=== PATIENT | male | born 1970 | race Caucasian/White ===

== ENCOUNTER 2016-03-04 14:17 | Emergency (ER) | payer OTHER ==
[~2016-03-04] VITALS: Ht 180.3 cm; Wt 86.0 kg
[~2016-03-04 14:17] MED LIST: ADVIN25/60 INH; ATOR-22 PO
[2016-03-04 14:33] VITALS: TEMP 37; Ht 180.3 cm; Wt 86.0 kg
[2016-03-04] MEDS ORDERED: LEVO1TAB33 PO (15:11)
[2016-03-04] MEDS ORDERED: PRED20TA PO (15:11)
[2016-03-04] MEDS ORDERED: CYCLOBENZAPRINE HCL 10 MG TAB PO STA (15:29)
[2016-03-04] MEDS ORDERED: ONDANSETRON 4MG OD TAB PO STA (15:29)
[2016-03-04] MEDS ORDERED: KETOROLAC TROMETHAMINE 60 MG/2 ML VIAL IM STA (15:29)
[2016-03-04] MEDS ORDERED: HYDROmorphone INJ 2 MG/ML SYR/VIAL IM STA (15:29)
--- NOTE | 2016-03-04 16:29 | DIAGNOSTIC IMAGING REPORT ---
LUMBAR SPINE 5 VIEWS CLINICAL HISTORY: Low back pain. FINDINGS: 5 views of the lumbar spine are compared to study dated 02/23/2016. The skeletal structures are well mineralized. There is no radiographic evidence of fracture or malalignment. Vertebral body height and alignment are maintained. The transverse and spinous processes are intact. There is no evidence of spondylolysis. There is minimal degenerative disc space narrowing at L5-S1. The remaining intervertebral disc spaces are well-maintained. Small anterior osteophytes are present at L4 and L5. The visualized bony pelvis appears intact. There is a nonobstructed abdominal bowel gas pattern. There is mild to moderate colonic fecal retention. There is age advanced atherosclerotic calcification of the abdominal aorta. IMPRESSION: There is no acute bony abnormality seen involving the lumbosacral spine and there has been no significant change from 02/23/2016. Electronically signed by: Cordell Drummond M.D. 03/04/2016 4:27 PM Dictated Date/Time: 03/04/2016 4:26 PM
[2016-03-04] MEDS ORDERED: CYCL10TA6 PO (17:25)
[2016-03-04] MEDS ORDERED: OXYC1TAB3 PO (17:25)
--- NOTE | 2016-03-04 17:29 | EMERGENCY ROOM VISIT NOTE ---
ED Visit Note First contact with patient: 14:36 CHIEF COMPLAINT: Low back pain times one day HISTORY OF PRESENT ILLNESS: Patient is a 46-year-old white male who presents to the emergency department for evaluation of severe low back pain today. He notes that he has had back pain intermittently for the last 6-8 months, but it worsened unexpectedly, and without clear source today. He states that he saw a chiropractor about 4 months ago. He had x-rays and was told he had a "bulging disc." He was worse after seeing a chiropractor and therefore did not go back. He has noted constant, aching midline low back pain since, it will occasionally become worse and radiates up his spine slightly. Today he states the pain is worse than it has been 6 weeks. He has tried ice. He did not use any medications today. He states that they are out of Tylenol and ibuprofen. The pain does not radiate into the buttocks, hips or the legs. It does not wrap around to the abdomen or the groin. He denies any urinary symptoms. No bowel or bladder incontinence. He denies a prior history of back injuries. He rates his pain a 10/10. REVIEW OF SYSTEMS: Review of systems as per HPI. All other systems reviewed were negative. 10 systems reviewed. PMH: Electronic medical records are reviewed and summarized as above/below. See Problem List. SOCIAL HISTORY: Patient lives at home with his . Smoker. PHYSICAL EXAM: Vital Signs: Reviewed Nurse's notes. MENTAL STATUS: Patient is an uncomfortable-appearing 46-year-old white male who is awake and alert and seated on the edge of the gurney in moderate distress due to back pain. NECK: Supple, non-tender. HEART: Regular rate and rhythm. LUNGS: Clear to auscultation. BACK: Tenderness in the paraspinous muscles in the lumbar area. No tenderness over the spinous processes of the lumbar vertebrae. No pain over the SI joint, sciatic notch or the greater trochanters bilaterally. He has discomfort with flexion, rotation and lateral bending. LEGS: Normal strength including dorsi-flexion and plantar flexion of the great toes and ankles, flexion and extension of the knees and flexion at the hips. Negative bilateral straight leg raising, normal and symmetrical knee and ankle reflexes. Sensation to light touch is intact of the lower extremity bilaterally. EMERGENCY DEPARTMENT COURSE: The patient was seen and examined as above. His old records are reviewed. He was medicated with IM Dilaudid, Toradol and oral Zofran and Flexeril. Lumbar spine x-rays were obtained. Mild degenerative changes were noted. He does not have any radicular symptoms at this time. Incidentally, he is finishing a course of steroids that his PCP had prescribed for an upper respiratory illness. Given the findings on x-ray, discussed with the patient that he may be in need of an MRI, but would need to follow-up with his PCP for further care as he may require a course of physical therapy prior to an MRI being authorized. He was given oxycodone and Flexeril for pain. It was not felt that any additional steroids were indicated. The patient did report that his pain and improved with the IM medications and rated it a 4/10 at discharge. His was driving. Patient was reviewed in the [facility] Prescription Drug Monitoring Program, and there were no red flags noted. MEDICAL DECISION MAKING: I do not suspect acute compression syndrome, cauda equina, diskitis, epidural abscess, hematoma or neurovascular compromise. LUMBAR SPINE 5 VIEWS CLINICAL HISTORY: Low back pain. FINDINGS: 5 views of the lumbar spine are compared to study dated 02/23/2016. The skeletal structures are well mineralized. There is no radiographic evidence of fracture or malalignment. Vertebral body height and alignment are maintained. The transverse and spinous processes are intact. There is no evidence of spondylolysis. There is minimal degenerative disc space narrowing at L5-S1. The remaining intervertebral disc spaces are well-maintained. Small anterior osteophytes are present at L4 and L5. The visualized bony pelvis appears intact. There is a nonobstructed abdominal bowel gas pattern. There is mild to moderate colonic fecal retention. There is age advanced atherosclerotic calcification of the abdominal aorta. IMPRESSION: There is no acute bony abnormality seen involving the lumbosacral spine and there has been no significant change from 02/23/2016. Problem List Medical Problems: (1) Abscess of right hip Status: Resolved (2) AC separation Status: Resolved (3) AC separation Status: Resolved (4) Atrial fibrillation Status: Resolved (5) Cellulitis of left foot Status: Resolved (6) Chest pain Status: Resolved (7) Chest pain Status: Resolved (8) Contusion of ribs Status: Resolved (9) COPD (chronic obstructive pulmonary disease) Status: Chronic (10) Flank pain Status: Resolved (11) Hyperlipidemia Status: Chronic (12) Hypertension Status: Chronic (13) Laceration of left foot Status: Resolved (14) Low back pain Status: Resolved (15) Myocardial infarction Status: Resolved (16) Paroxysmal SVT (supraventricular tachycardia) Status: Resolved (17) Pneumonia Status: Resolved (18) Prepatellar bursitis, right knee Status: Resolved (19) Tick bite Status: Resolved Surgical Problems: (1) S/P ablation operation for arrhythmia Status: Resolved Current/Historical Medications Scheduled Levofloxacin (Levaquin), 500 MG PO DAILY Prednisone (Prednisone), 20 MG PO BID Scheduled PRN Cyclobenzaprine Hcl (Flexeril), 10 MG PO TID PRN for Muscle Spasms Oxycodone Immediate Rel Tab (Roxicodone Ir), 1-2 TAB PO Q4H PRN for Severe Pain Allergies Coded Allergies: No Known Allergies (Unverified , 08/28/15) Vital Signs Date Time Temp Pulse Resp B/P Pulse Ox O2 Delivery O2 Flow Rate FiO2 03/04/16 17:35 96 18 154/87 96 Room Air 03/04/16 16:30 104 18 171/96 95 Room Air 03/04/16 14:33 37.0 111 18 161/103 96 Room Air Medications Administered Medications (Trade) Dose Ordered Sig/Luis Route Start Time Stop Time Status Last Admin Dose Admin Hydromorphone HCl (Dilaudid Inj) 2 mg NOW STAT IM 03/04/16 15:29 03/04/16 15:31 DC 03/04/16 15:48 2 MG Ketorolac Tromethamine (Toradol Inj) 60 mg NOW STAT IM 03/04/16 15:29 03/04/16 15:31 DC 03/04/16 15:47 60 MG Ondansetron HCl (Zofran Odt) 4 mg NOW STAT PO 03/04/16 15:29 03/04/16 15:31 DC 03/04/16 15:46 4 MG Cyclobenzaprine HCl (Flexeril Tab) 10 mg NOW STAT PO 03/04/16 15:29 03/04/16 15:31 DC 03/04/16 15:46 10 MG Oxycodone HCl (Roxicodone Immediate Rel 5MG Home Pack) 1 homepack UD ONCE PO 1/23/17 17:45 03/04/16 17:46 DC 03/04/16 17:39 1 HOMEPACK Departure Information Impression Primary Impression: Low back pain Prescriptions Oxycodone Immediate Rel Tab (ROXICODONE IR) 5 Mg Tab 1-2 TAB PO Q4H Y for Severe Pain, #25 TAB For Initial Treatment Prov: Sharon Price PA 03/04/16 Cyclobenzaprine Hcl (FLEXERIL) 10 Mg Tab 10 MG PO TID Y for Muscle Spasms, #30 TAB Prov: Sharon Price PA 03/04/16 Referrals Hernandez Ashraf M.D. (PCP) Patient Instructions My [facility] Additional Instructions DO NOT drive, drink alcohol, operate machinery, or perform dangerous activities today. You were given medications in the ER that can affect your ability to safely function or operate a vehicle. Cyclobenzaprine (Flexeril) 10 mg: Take 1 pills 3 times daily as needed for muscle spasms.. Avoid alcohol, operating machinery or dangerous equipment, working on ladders or roofs, DRIVING, or situations where being under the influence may be dangerous. Oxycodone (OxyIR) 5mg: Take 1-2 pills every four hours for breakthrough pain. Avoid alcohol, operating machinery or dangerous equipment, working on ladders or roofs, DRIVING, or situations where being under the influence may be dangerous. It is recommended to use an [id number]-ojt-[id number] stool softener such as Colace, 100mg twice daily while taking this medication to avoid constipation. Ibuprofen(Motrin, Advil) may be used for fever or pain. Use 600mg every six hours as needed. Take with food. Avoid using more than 2400mg in a 24 hour period. Do not use 2400mg per day for more than three consecutive days without physician direction. Prolonged inappropriate use can lead to stomach upset or ulcers. This medication can be taken if you need to drive, work, or perform activities which may be dangerous when taking narcotic pain medication. (AND/OR) Acetaminophen(Tylenol) may be used for fever or pain. Use 1000mg every six hours as needed. Avoid using more than 3000mg in a 24 hour period. This medication can be taken if you need to drive, work, or perform activities which may be dangerous when taking narcotic pain medication. Rest and avoid heavy lifting until your symptoms resolve and then gradually return to full activity. A good rule of thumb is if it hurts your back to perform a certain activity, then it should be avoided until you are healthy again. A heating pad, warm compresses, or a hot shower may help with tight muscles and can be done several times a day as needed. Continue current medications. Return to the ER immediately for any numbness, tingling, severe pain, loss of control of your bowels or bladder, inability to walk, or as needed. Follow up with your primary care physician within 3-5 days for a recheck of your current condition. Problem Qualifiers Primary Impression: Low back pain Chronicity: chronic Back pain laterality: midline Sciatica presence: without sciatica Qualified Codes: M54.5 - Low back pain; G89.29 - Other chronic pain
[2016-03-04 17:35] VITALS: BP 154/87; PULSE 96; O2SAT 96
[2016-03-04] MEDS ORDERED: OXYCODONE IR HOME PACK PO ONE (17:45)
[2016-05-29] MEDS ORDERED: NAPR250T2 PO (14:10)
== END 2016-03-04 17:43 | disposition home or self-care (01) ==
LOC: C.EDB 14:18 → C.EDD 17:43
DX: M54.5 Low back pain (principal); J44.9 Chronic obstructive pulmonary disease, unspecified; E78.5 Hyperlipidemia, unspecified; I10 Essential (primary) hypertension; I25.2 Old myocardial infarction

== ENCOUNTER 2016-05-29 13:33 | Emergency (ER) | payer OTHER ==
[~2016-05-29] VITALS: Ht 180.3 cm; Wt 83.1 kg
[~2016-05-29 13:33] MED LIST changes: -ADVIN25/60 INH; -ATOR-22 PO; +LEVO1TAB33 PO; +OXYC1TAB3 PO; +PRED20TA PO
[2016-05-29 13:44] VITALS: TEMP 36.7; Ht 180.3 cm; Wt 83.1 kg
[2016-05-29] MEDS ORDERED: NAPR1TAB48 PO (14:10)
[2016-05-29 14:41] VITALS: BP 151/95; PULSE 101; O2SAT 95
[2016-05-29] MEDS ORDERED: CEFTRIAXONE SOD 350MG/ML 1 GM VIAL IM ONE (14:45)
[2016-05-29] MEDS ORDERED: SULFAMETHOXAZOLE/TRIMETHOPRIM DS 800/160MG TAB PO ONE (14:45)
[2016-05-29] MEDS ORDERED: SULF800T23 PO (14:49)
[2016-05-29] MEDS ORDERED: CEPH500C2 PO (14:49)
--- NOTE | 2016-05-29 14:49 | EMERGENCY ROOM VISIT NOTE ---
ED Visit Note First contact with patient: 14:09 CHIEF COMPLAINT: Infection of the left thigh 2 days HISTORY OF PRESENT ILLNESS: Patient is a 46-year-old white male who presents to emergency department for evaluation of redness, warmth and induration around a tick bite site on his left thigh. Patient relates that he was camping this weekend and got a tick on his left leg. He was able to remove it entirely with a tick twister Friday evening 3 days ago. He believes that he was on for less than 12 hours. There was a small area of redness around the tick bite which he did not think was unusual. Following day however he be noted that the bite site had become scabbed over. There was a small ring of erythema, which has progressively gotten worse and is now spreading up and down the leg. It is also a little bit hot to the touch and indurated centrally. The patient does report a history of MRSA from an abscess on his hip a couple of years ago. He denies any fever or chills. There has been no drainage or discharge from the area. He denies any pain. REVIEW OF SYSTEMS: Review of systems as per HPI. All other systems reviewed were negative. 10 systems reviewed. PMH: Electronic medical records are reviewed and summarized as above/below. See Problem List. His tetanus is up-to-date. SOCIAL HISTORY: Patient lives at home. . Smoker. PHYSICAL EXAM: Vital Signs: Reviewed Nurse's notes. GENERAL: Patient is a well -appearing 46-year-old white male who is awake and alert and in no acute distress. EYES: PERRL, EOMI, no discharge or injection. NEUROLOGICAL: Alert and cooperative. Sensory and motor functions grossly intact. INTEGUMENTARY: Examination of the medial aspect of the left thigh show a small scabbed over lesion with surrounding induration, erythema with increased warmth. There is no lymphangitic streaking, but there is left inguinal lymphadenopathy appreciated. Hip and knee range of motion are full. The left lower extremity is neurovascularly intact. EMERGENCY DEPARTMENT COURSE: The patient was seen and assessed as above. His old records are reviewed. He does have a history of MRSA. He sustained a small tick bite to the left thigh, which resulted in a small open wound, and subsequently appears to have developed a cellulitis. At this time there is no fluctuance or pointing to suspect abscess, but I did discuss the patient that this could develop. His rash does not appear consistent with erythema migrans. The patient was medicated with Rocephin 1 g IM and Bactrim DS 2 tablets orally. There is no drainage to culture at this time, however with his history of MRSA he will be covered for such. He was advised to return to the emergency department in 48 hours for recheck, sooner for any worsening symptoms. He expressed understanding of this and was agreeable. Problem List Medical Problems: (1) Abscess of right hip Status: Resolved (2) AC separation Status: Resolved (3) AC separation Status: Resolved (4) Atrial fibrillation Status: Resolved (5) Cellulitis of left foot Status: Resolved (6) Chest pain Status: Resolved (7) Chest pain Status: Resolved (8) Contusion of ribs Status: Resolved (9) COPD (chronic obstructive pulmonary disease) Status: Chronic (10) Flank pain Status: Resolved (11) Hyperlipidemia Status: Chronic (12) Hypertension Status: Chronic (13) Laceration of left foot Status: Resolved (14) Low back pain Status: Resolved (15) Myocardial infarction Status: Resolved (16) Paroxysmal SVT (supraventricular tachycardia) Status: Resolved (17) Pneumonia Status: Resolved (18) Prepatellar bursitis, right knee Status: Resolved (19) Tick bite Status: Resolved Surgical Problems: (1) S/P ablation operation for arrhythmia Status: Resolved Current/Historical Medications Scheduled Cephalexin Monohydrate (Keflex), 500 MG PO QID Sulfa/Trimethoprim (Bactrim Ds 800MG/160MG), 1 TAB PO BID Miscellaneous Medications Naproxen (Naprosyn), 250 MG PO Allergies Coded Allergies: No Known Allergies (Unverified , 08/28/15) Vital Signs Date Time Temp Pulse Resp B/P Pulse Ox O2 Delivery O2 Flow Rate FiO2 05/29/16 14:41 101 16 151/95 95 Room Air 05/29/16 13:44 36.7 104 18 143/79 98 Room Air Medications Administered Medications (Trade) Dose Ordered Sig/Luis Route Start Time Stop Time Status Last Admin Dose Admin Ceftriaxone Sodium (Rocephin Im) 1,000 mg NOW ONCE IM 05/29/16 14:45 05/29/16 14:46 DC 05/29/16 14:52 1,000 MG Trimethoprim/ Sulfamethoxazole (Septra Ds 800/ 160MG Tab) 2 tab NOW ONCE PO 05/29/16 14:45 05/29/16 14:46 DC 05/29/16 14:52 2 TAB Departure Information Impression Primary Impression: Left leg cellulitis Prescriptions Sulfa/Trimethoprim (Bactrim Ds 800MG/160MG) Tab 1 TAB PO BID, #20 TAB Prov: Sharon Price PA 05/29/16 Cephalexin Monohydrate (KEFLEX) 500 Mg Cap 500 MG PO QID, #40 CAP Prov: Sharon Price PA 05/29/16 Referrals Brock Sparks (PCP) Patient Instructions My [facility] Additional Instructions Cephalexin(Keflex) 500mg: Take one pill four times daily for 10 days for your skin infection. All antibiotics can cause diarrhea. If this occurs and you feel worse or it does not resolve in 1-2 days follow up with your doctor or return to the Emergency Department as this could be signs of serious underlying problems. Any medication can cause an allergic reaction, stop the pills immediately and return to the ER for rash, hives, breathing difficulties, or swelling. Trimethoprim-Sulfamethoxazole(Bactrim DS): Take one pill twice daily for 10 days for your skin infection. All antibiotics can cause diarrhea. If this occurs and you feel worse or it does not resolve in 1-2 days follow up with your doctor or return to the Emergency Department as this could be signs of serious underlying problems. Any medication can cause an allergic reaction, stop the pills immediately and return to the ER for rash, hives, breathing difficulties, or swelling. Ibuprofen(Motrin, Advil) may be used for fever or pain. Use 600mg every six hours as needed. Take with food. Avoid using more than 2400mg in a 24 hour period. Do not use 2400mg per day for more than three consecutive days without physician direction. Prolonged inappropriate use can lead to stomach upset or ulcers. This is available over the counter and typically comes in 200mg tablets. (AND/OR) Acetaminophen(Tylenol) may be used for fever or pain. Use 1000mg every eight hours as needed. Avoid using more than 3000mg in a 24 hour period. This is available over the counter. Read all the package inserts or medication information paperwork provided. If you have any questions or concerns call your primary provider, pharmacist or the ER for assistance. Warm compresses to the affected area 4 times daily for 15-20 minutes. Rest and drink plenty of fluids. Continue current medications. Return to the ER in 48 hours for recheck, return immediately for severe pain, persistent fevers, spreading redness, or any worsening of your condition. Follow up with your primary physician within 2-3 days for a recheck of the current condition.
== END 2016-05-29 15:02 | disposition home or self-care (01) ==
LOC: C.EDB 13:34 → C.EDD 15:02
DX: L03.116 Cellulitis of left lower limb (principal); F17.210 Nicotine dependence, cigarettes, uncomplicated; Z86.14 Personal history of Methicillin resistant Staphylococcus aureus infection; J44.9 Chronic obstructive pulmonary disease, unspecified; E78.5 Hyperlipidemia, unspecified; I10 Essential (primary) hypertension; I25.2 Old myocardial infarction; Z87.01 Personal history of pneumonia (recurrent)

== ENCOUNTER → 2016-10-10 | Outpatient (CLI) | payer OTHER ==
[~2016-10-10] MED LIST changes: +CEPH500C2 PO; -LEVO1TAB33 PO; +NAPR250T2 PO; -OXYC1TAB3 PO; -PRED20TA PO; +SULF800T23 PO
[2016-10-11 17:46] LABS: URINE APPEARANCE CLEAR (CLEAR); URINE BILIRUBIN NEG (NEG); URINE COLOR YELLOW; URINE EPITHELIAL CELL AUTO 0-5 /lpf (0-5); URINE NITRITE NEG (NEG); URINE PH 7.5 (4.5-7.5); URINE SPECIFIC GRAVITY 1.008 (1.000-1.030); UROBILINOGEN NEG (NEG)
[2016-10-11 17:54] LABS: MANUAL MICROSCOPIC REQUIRED? NO; REVIEW REQ? NO
== END | disposition home or self-care (01) ==
LOC: C.LABPVFM 09:33
PROVIDERS: ATTEND Physician Assistant
DX: J44.9 Chronic obstructive pulmonary disease, unspecified (principal); I10 Essential (primary) hypertension; E78.5 Hyperlipidemia, unspecified; K03.5 Ankylosis of teeth; M54.2 Cervicalgia; R53.83 Other fatigue; M62.838 Other muscle spasm

== ENCOUNTER → 2016-10-10 | Outpatient (CLI) | payer OTHER ==
--- NOTE | 2016-10-10 16:25 | DIAGNOSTIC IMAGING REPORT ---
RIGHT SHOULDER MIN 2 VIEWS ROUTINE HISTORY: 46 years-old Male BACK PAIN Right COMPARISON: Portable chest radiograph 01/17/2015 TECHNIQUE: 3 views of the right shoulder FINDINGS: Mild glenohumeral and acromioclavicular osteoarthritis is noted. There is no acute fracture or dislocation. Negative for opaque foreign body. Soft tissues are unremarkable. Imaged right lung cuellar are clear. IMPRESSION: Mild degenerative changes about the right shoulder without acute bony abnormality. The above report was generated using voice recognition software. It may contain grammatical, syntax or spelling errors. Electronically signed by: Stephen Parsons M.D. 10/10/2016 4:23 PM Dictated Date/Time: 10/10/2016 4:23 PM
--- NOTE | 2016-10-10 16:26 | DIAGNOSTIC IMAGING REPORT ---
LEFT SHOULDER MIN 2 VIEWS ROUTINE HISTORY: 46 years-old Male BACK PAIN COMPARISON: Chest radiographs 01/17/2015 TECHNIQUE: 3 views of the left shoulder FINDINGS: There is no acute fracture or dislocation identified. Mild subcortical sclerosis and cystic change involves the greater tuberosity. Mild glenohumeral and acromioclavicular osteoarthritis is noted. Imaged lung cuellar are clear. Negative for radiopaque foreign body. IMPRESSION: 1. No acute bony abnormality. 2. Mild degenerative changes of the left shoulder. The above report was generated using voice recognition software. It may contain grammatical, syntax or spelling errors. Electronically signed by: Stephen Parsons M.D. 10/10/2016 4:25 PM Dictated Date/Time: 10/10/2016 4:24 PM
--- NOTE | 2016-10-10 16:32 | DIAGNOSTIC IMAGING REPORT ---
C-SPINE ROUTINE 4 OR 5 VIEWS CLINICAL HISTORY: 46 years-old Male presenting with NECK PAIN, shoulder pain, left worse than right, no recent injury. TECHNIQUE: Lateral, bilateral oblique, frontal, and open-mouth odontoid views of the cervical spine were obtained. COMPARISON: None. FINDINGS: Normal cervical lordosis. Vertebral body heights and intervertebral disc spaces preserved. Mild multilevel degenerative changes. Radiographs are slightly limited due to lack of complete visualization of the C7 vertebral body. Within this limitation, no radiographic evidence of acute fracture or subluxation. No osseous neural foraminal narrowing is apparent. Lateral masses of C1 articulate normally with C2. Normal predental interval. No prevertebral soft tissue swelling. IMPRESSION: Mild multilevel degenerative changes without radiographic evidence of osseous neural foraminal narrowing. Electronically signed by: Elia Coronado M.D. 10/10/2016 4:31 PM Dictated Date/Time: 10/10/2016 4:29 PM
[2016-10-10 17:50] LABS: HEMATOCRIT 48.9 % (42-52); MEAN CELL VOLUME 87.6 fL (80-100); MEAN CORPUSCULAR HEMOGLOBIN 29.2 pg (25-34); MEAN CORPUSCULAR HGB CONC 33.3 g/dl (32-36); MEAN PLATELET VOLUME 10.4 fL (7.4-10.4); PLATELET COUNT 353 K/uL (130-400); RED BLOOD COUNT 5.58 M/uL (4.7-6.1); WHITE BLOOD COUNT 8.49 K/uL (4.8-10.8)
[2016-10-10 18:08] LABS: ALT/SGPT 25 U/L (12-78); AST/SGOT 12 U/L (15-37); BLOOD UREA NITROGEN 8 mg/dl (7-18); BUN/CREATININE RATIO 8.5 (10-20); CALCIUM 9.1 mg/dl (8.5-10.1); CARBON DIOXIDE 28 mmol/L (21-32); CHLORIDE 102 mmol/L (98-107); CREATININE 0.99 mg/dl (0.60-1.40); GLUCOSE 108 mg/dl (70-99); POTASSIUM 4.1 mmol/L (3.5-5.1); SODIUM 136 mmol/L (136-145)
[2016-10-10 18:18] LABS: LYME DISEASE AB IGM NEG (NEG)
[2016-10-10 18:21] LABS: LYME DISEASE AB IGG NEG (NEG)
[2016-10-10 18:23] LABS: ALB/GLOB RATIO 0.8 (0.9-2); ALKALINE PHOSPHATASE 83 U/L (45-117); CHOLESTEROL 250 mg/dl (0-200); CHOLESTEROL/HDL RATIO 5.4; HDL CHOLESTEROL 46 mg/dl; LDL CHOLESTEROL CALCULATED 172 mg/dl; THYROID STIMULATING HORMONE 0.702 uIu/ml (0.300-4.500); TRIGLYCERIDES 160 mg/dl (0-150); VERY LOW DENSITY LIPOPROT CALC 32 mg/dl
== END | disposition home or self-care (01) ==
LOC: C.RADPV 15:25
PROVIDERS: ATTEND Physician Assistant
DX: M54.2 Cervicalgia (principal); R53.83 Other fatigue; J44.9 Chronic obstructive pulmonary disease, unspecified; M12.839 Other specific arthropathies, not elsewhere classified, unspecified wrist; I10 Essential (primary) hypertension; E78.5 Hyperlipidemia, unspecified; K63.5 Polyp of colon; M25.511 Pain in right shoulder; M25.512 Pain in left shoulder

== ENCOUNTER → 2017-02-26 | Outpatient (CLI) | payer OTHER ==
[~2017-02-26] MED LIST changes: -CEPH500C2 PO; +NAPR1TAB48 PO; -NAPR250T2 PO; -SULF800T23 PO
== END | disposition home or self-care (01) ==
LOC: C.PATHSPEC 17:00
PROVIDERS: ATTEND Urology
DX: R31.0 Gross hematuria (principal); R31.29 Other microscopic hematuria; R97.20 Elevated prostate specific antigen [PSA]

== ENCOUNTER → 2017-03-05 | Outpatient (CLI) | payer OTHER ==
[2017-03-05 18:03] LABS: ALBUMIN 3.5 gm/dl (3.4-5.0); ALT/SGPT 20 U/L (12-78); BLOOD UREA NITROGEN 8 mg/dl (7-18); CALCIUM 9.5 mg/dl (8.5-10.1); CARBON DIOXIDE 26 mmol/L (21-32); CREATININE 0.88 mg/dl (0.60-1.40); GLUCOSE 109 mg/dl (70-99); POTASSIUM 4.3 mmol/L (3.5-5.1); SODIUM 136 mmol/L (136-145)
[2017-03-05 18:08] LABS: ALKALINE PHOSPHATASE 83 U/L (45-117); AST/SGOT 12 U/L (15-37); TOTAL PROTEIN 8.3 gm/dl (6.4-8.2)
== END | disposition home or self-care (01) ==
LOC: C.LABPVFM 11:31
PROVIDERS: ATTEND Urology
DX: R31.0 Gross hematuria (principal); R31.29 Other microscopic hematuria; R97.20 Elevated prostate specific antigen [PSA]

== ENCOUNTER → 2017-03-11 | Outpatient (CLI) | payer OTHER ==
[~2017-03-11] MED LIST changes: +OPTIRAY 320 IV PRN
--- NOTE | 2017-03-11 12:36 | DIAGNOSTIC IMAGING REPORT ---
ABD/PELVIS COMBO CLINICAL HISTORY: 47 years-old Male presenting with R31.0 Gross [id number] Hematuria, [id number] Elevate. TECHNIQUE: Multidetector CT of the abdomen and pelvis was performed before and after the administration of intravenous contrast. IV contrast: 94 mL of Optiray 320. A dose lowering technique was used consistent with the principles of ALARA (as low as reasonably achievable). COMPARISON: 01/16/2015. CT DOSE (mGy.cm): The estimated cumulative dose is 1457.95 mGycm. FINDINGS: Explosives Worker topogram: Unremarkable. Lung bases: The Normal heart size. No pericardial or pleural effusion. Liver: Normal morphology. No liver lesion. Patent hepatic vasculature. Biliary: No intrahepatic or extrahepatic biliary ductal dilatation. Normal gallbladder. Pancreas: Normal. Spleen: Normal. Adrenal glands: Normal. Kidneys and ureters: 4 mm hypodensity in the left kidney too small to characterize but likely simple cyst. No hydronephrosis. No renal or ureteral calculi. Subtle mild urothelial thickening of the ureters suggested. No filling defects in the urinary collecting systems bilaterally. Bladder: Normal. Pelvic organs: Prostate enlargement likely secondary to benign prostatic hyperplasia. Bowel: Limited diverticulosis of the proximal sigmoid colon. No pericolonic inflammatory change. The appendix is normal. No bowel obstruction. Peritoneal cavity: No free fluid or intraperitoneal gas. Lymph nodes: No enlarged lymph nodes in the abdomen or pelvis. Vasculature: Atherosclerosis of the normal caliber abdominal aorta. IVC patent. Abdominal wall: Normal. Musculoskeletal: Normal. IMPRESSION: 1. Prostatomegaly. This is likely secondary to underlying benign prostatic hyperplasia. 2. Suggestion of mild urothelial thickening of the ureters. This can be seen in the setting of reflux among other etiologies. 3. No evidence of a solid renal mass, urothelial neoplasm, or bladder mass. 4. No nephrolithiasis. Electronically signed by: Elia Coronado M.D. 03/11/2017 12:35 PM Dictated Date/Time: 03/11/2017 12:24 PM
== END | disposition home or self-care (01) ==
LOC: C.CTS 11:45
PROVIDERS: ATTEND Urology
DX: N40.0 Benign prostatic hyperplasia without lower urinary tract symptoms (principal); R31.0 Gross hematuria; R31.29 Other microscopic hematuria; R97.20 Elevated prostate specific antigen [PSA]

== ENCOUNTER 2017-05-11 01:40 | Emergency (ER) | payer OTHER ==
[~2017-05-11] VITALS: Ht 172.7 cm; Wt 82.0 kg
[~2017-05-11 01:40] MED LIST changes: +DILT-115 PO; +FINA5TAB4 PO; +IPRA1AER2 INH; +MONT1TAB3 PO; -NAPR1TAB48 PO; -OPTIRAY 320 IV PRN
[2017-05-11 01:41] VITALS: Ht 172.7 cm; Wt 82.0 kg
[2017-05-11 01:50] VITALS: O2SAT 95
[2017-05-11] MEDS ORDERED: PRVHFAIN INH (02:55)
[2017-05-11] MEDS ORDERED: VNTHFA/IN INH (02:55)
[2017-05-11] MEDS ORDERED: OPTIRAY 320 IV PRN (03:00)
--- NOTE | 2017-05-11 03:10 | EMERGENCY ROOM VISIT NOTE ---
History Report prepared by Jeremy: Merced Mccoy Under the Supervision of: Dr. Mya Casey D.O. First contact with patient: 01:55 Chief Complaint: CHEST PAIN Stated Complaint: SHORTNESS OF BREATHE/SHOULDER/BACK PAIN Nursing Triage Summary: Pt brought in by EMS. Pt woke up at 1230 am with coughing and then developed severe pain in left shoulder. +SOB The pain now is intermittent and radiates to chest. Pt has history of cardiac ablation and COPD. Pt used inhaler at home with no relief. Pt given ASA 324 mg enroute. History of Present Illness The patient is a 47 year old male who presents to the Emergency Room with complaints of sudden chest pain starting prior to arrival. The patient states that he was sleeping and woke up with a stabbing pain in his back that radiated into his chest. He states that he started becoming short of breath and noticed it was more painful when he tried to breathe. He notes that he has had the chest pain and shortness of breath. He states that he had a cardiac ablation done, but they were unable to rule out if he had two heart attacks. The patient states that he felt fine yesterday. He reports that he had done yard work and pulled a muscle in his ribs yesterday, but was fine. He notes that he did not smoke as many cigarettes yesterday as normal. The patient complains of a rash on the inside of his thigh from a tick bite a year ago. He reports that he has had multiple Lyme tests done that have come back negative. The patient denies a history of PE/DVT, seeing dermatology, and recent long trips. The patient notes he just had a normal stress test done. Source of History: patient Onset: prior to arrival Position: chest Quality: stabbing Timing: other (sudden) Modifying Factors (Worsening): breathing Associated Symptoms: + SOB, + back pain, + rash Review of Systems See HPI for pertinent positives & negatives. A total of 10 systems reviewed and were otherwise negative. Past Medical & Surgical Medical Problems: (1) Abscess of right hip (2) AC separation (3) AC separation (4) Atrial fibrillation (5) Cellulitis of left foot (6) Chest pain (7) Chest pain (8) Contusion of ribs (9) COPD (chronic obstructive pulmonary disease) (10) COPD (chronic obstructive pulmonary disease) (11) Flank pain (12) Hyperlipidemia (13) Hypertension (14) Laceration of left foot (15) Low back pain (16) Myocardial infarction (17) Paroxysmal SVT (supraventricular tachycardia) (18) Pneumonia (19) Prepatellar bursitis, right knee (20) Tick bite Surgical Problems: (1) History of cardiac radiofrequency ablation (2) S/P ablation operation for arrhythmia Family History FHx: heart disease Social History Smoking Status: Current Every Day Smoker Alcohol Use: occasionally Marital Status: Housing Status: lives with significant other Occupation Status: employed Current/Historical Medications Scheduled Azithromycin (Zithromax), 500 MG PO DAILY Diltiazem Hcl Ext Rel (Tiazac), 240 MG PO QPM Finasteride (Proscar), 5 MG PO DAILY AT LUNCH Montelukast Sodium (Singulair), 10 MG PO HS Scheduled PRN Albuterol (Ventolin Hfa), 2 INH Q4H PRN for SOB/Wheezing Allergies Coded Allergies: No Known Allergies (Unverified , 05/02/17) Physical Exam Vital Signs Date Time Temp Pulse Resp B/P (MAP) Pulse Ox O2 Delivery O2 Flow Rate FiO2 05/11/17 05:35 89 20 132/80 94 Room Air 05/11/17 05:16 92 16 115/71 92 Room Air 05/11/17 04:34 36.7 93 20 118/69 93 Room Air 05/11/17 03:37 102 20 115/67 95 Room Air 05/11/17 02:39 108 24 119/67 95 Room Air 05/11/17 02:10 114 05/11/17 01:50 95 Room Air 05/11/17 01:42 95 Room Air 05/11/17 01:41 36.7 116 20 168/76 94 Room Air Physical Exam HEENT: Head - normocephalic and atraumatic Pupils are equal, round, and reactive to light. Extraocular eye muscles are intact, and sclera are anicteric. Nose - moist nasal mucosa without discharge. Mouth - moist buccal mucosa. Oropharynx is nonerythematous and there is no tonsillar exudate or edema noted. Neck: Supple; no JVD, nuchal rigidity, cervical lymphadenopathy. Heart: Regular rate and rhythm. There is a normal S1 and S2 with no murmurs, clicks, or gallops appreciated. Lungs: Clear to auscultation bilaterally with no wheezes, rales, or rhonchi. Abdomen: Soft, completely nontender, nondistended, with good bowel sounds. There are no palpable pulsatile masses or hepatosplenomegaly. There is no guarding, rigidity, or rebound noted. Extremities: No evidence of cyanosis, clubbing, or edema. There are easily palpable peripheral pulses. Skin: warm and dry with good turgor and no rashes. Medical Decision & Procedures ER Provider Diagnostic Interpretation: Radiology results as stated below per my review and the radiologist's interpretation: CHEST X-RAY: The results were interpreted by me. No pneumothorax. Narrow mediastinum. No pulmonary consolidation. CT CHEST With Contrast: No evidence of pulmonary embolus. No thoracic aortic dissection or aneurysm. Centrilobular emphysema. Mild bronchial thickening noted throughout both lungs which may represent bronchitis. No focla consolidation, pleural effusion, or pneumothorax. Heart and pericardium unremarkable. Upper abdomen is unremarkable. No acute osseous findings. Radiologist: Paul Mayers Study ready at 03:53 and initial results transmitted at 04:11. Laboratory Results 05/11/17 01:20 Red Blood Count 5.33, Mean Corpuscular Volume 84.6, Mean Corpuscular Hemoglobin 30.2, Mean Corpuscular Hemoglobin Concent 35.7, Mean Platelet Volume 9.9, Neutrophils (%) (Auto) 55.4, Lymphocytes (%) (Auto) 36.3, Monocytes (%) (Auto) 5.1, Eosinophils (%) (Auto) 2.2, Basophils (%) (Auto) 0.6, Neutrophils # (Auto) 5.46, Lymphocytes # (Auto) 3.58, Monocytes # (Auto) 0.50, Eosinophils # (Auto) 0.22, Basophils # (Auto) 0.06 05/11/17 01:20 Test 05/11/17 01:20 05/11/17 04:25 White Blood Count 9.86 K/uL (4.8-10.8) Red Blood Count 5.33 M/uL (4.7-6.1) Hemoglobin 16.1 g/dL (14.0-18.0) Hematocrit 45.1 % (42-52) Mean Corpuscular Volume 84.6 fL (80-100) Mean Corpuscular Hemoglobin 30.2 pg (25-34) Mean Corpuscular Hemoglobin Concent 35.7 g/dl (32-36) Platelet Count 273 K/uL (130-400) Mean Platelet Volume 9.9 fL (7.4-10.4) Neutrophils (%) (Auto) 55.4 % Lymphocytes (%) (Auto) 36.3 % Monocytes (%) (Auto) 5.1 % Eosinophils (%) (Auto) 2.2 % Basophils (%) (Auto) 0.6 % Neutrophils # (Auto) 5.46 K/uL (1.4-6.5) Lymphocytes # (Auto) 3.58 K/uL (1.2-3.4) Monocytes # (Auto) 0.50 K/uL (0.11-0.59) Eosinophils # (Auto) 0.22 K/uL (0-0.5) Basophils # (Auto) 0.06 K/uL (0-0.2) RDW Standard Deviation 41.6 fL (36.4-46.3) RDW Coefficient of Variation 13.6 % (11.5-14.5) Immature Granulocyte % (Auto) 0.4 % Immature Granulocyte # (Auto) 0.04 K/uL (0.00-0.02) Prothrombin Time 9.8 SECONDS (9.0-12.0) Prothromb Time International Ratio 0.9 (0.9-1.1) Activated Partial Thromboplast Time 25.9 SECONDS (21.0-31.0) Partial Thromboplastin Ratio 1.0 Anion Gap 15.0 mmol/L (3-11) Est Creatinine Clear Calc Drug Dose 70.5 ml/min Estimated GFR () 79.2 Estimated GFR (Non- 68.3 BUN/Creatinine Ratio 8.3 (10-20) Calcium Level 8.9 mg/dl (8.5-10.1) Total Bilirubin 0.4 mg/dl (0.2-1) Direct Bilirubin < 0.1 mg/dl (0-0.2) Aspartate Amino Transf (AST/SGOT) 17 U/L (15-37) Alanine Aminotransferase (ALT/SGPT) 25 U/L (12-78) Alkaline Phosphatase 83 U/L (45-117) Total Protein 8.0 gm/dl (6.4-8.2) Albumin 3.8 gm/dl (3.4-5.0) Lipase 385 U/L (73-393) Troponin I < 0.015 ng/ml (0-0.045) Laboratory results per my review. Medications Administered Medications (Trade) Dose Ordered Sig/Luis Route Start Time Stop Time Status Last Admin Dose Admin Azithromycin (Zithromax Tab) 500 mg NOW STAT PO 05/11/17 05:35 05/11/17 05:36 DC 05/11/17 05:41 500 MG Procedure 0535: Ordered Azithromycin 500 mg PO. ECG Per My Interpretation Indication: chest pain Rate (beats per minute): 114 Rhythm: sinus tachycardia Findings: ST depression (Lateral, Inferior), no ectopy Comparison ECG Date: REPEAT and 01/17/2015 Change: REPEAT: Normal sinus rhythm at a rate of 99. Persistent ST segment depression in the lateral leads. Seems to be improved in the inferior leads. 01/17/2015: ST Depressions are new findings. ED Course 0216: Past medical records reviewed. The patient was evaluated in room B4B. A complete history and physical exam was performed. A 12-lead EKG was obtained as described above. A portable chest x-ray was obtained and showed no evidence of a pneumothorax. The patient will go for CT scan of the chest to rule out PE. Nursing staff noted that the patient's heart rate came down and they repeated his EKG. Some of the ST segment depression seem to have resolved. 0420: I reevaluated the patient and he was sound asleep. His vitals are stable. I woke him up and he is free from his chest pain. I notified him that we are going to do a repeat troponin. 0532: Upon reevaluation, the patient is asleep and all his pain is gone. I discussed findings and results with him. He verbalized agreement of the treatment plan. The patient was discharged home. 0535: Ordered Azithromycin 500 mg PO. Medical Decision The patient is a 47 year old male who presents to the Emergency Room with complaints of sudden chest pain starting prior to arrival. Differential diagnoses include PE, aortic dissection, pneumothorax, cardiac ischemia. LABS: No leukocytosis Stable H&H Normal renal function Glucose 136 Normal LFTs Normal lipase Normal Coags Troponin less than 0.015 Repeat Troponin less than 0.015 This is a 47-year-old male patient presents to the emergency department with back pain that seemed to radiate through to his chest. EKG revealed tachycardia with some ST segment depression laterally and inferiorly. Once the rate came down less than 100, that ST segment depression seem to decrease. Chest x-ray showed no evidence of a PE. There was some evidence of bronchitis. The patient does continue to smoke. He will be treated with Zithromax. The explained that he cannot take only a Z-Dann as this has not worked for him in the past but he needs to take a 10 day course of azithromycin. The patient was pain-free upon discharge. I have asked him to follow-up with the PCP if the symptoms persist. He can return here to the ER if symptoms worsen. Medication Reconcilliation Current Medication List: was personally reviewed by me Blood Pressure Screening Patient's blood pressure: Normal blood pressure Blood pressure disposition: Did not require urgent referral Impression Primary Impression: Left sided chest pain Additional Impressions: Left-sided back pain Bronchitis Scribe Attestation The scribe's documentation has been prepared under my direction and personally reviewed by me in its entirety. I confirm that the note above accurately reflects all work, treatment, procedures, and medical decision making performed by me. Departure Information Dispostion Home / Self-Care Prescriptions Azithromycin (Zithromax) 500 Mg Tab 500 MG PO DAILY, #9 TAB Prov: Mya Casey D.O. 05/11/17 Referrals Carolynn Snyder CRNP (PCP) Forms Call Back Authorization, HOME CARE DOCUMENTATION FORM, IMPORTANT VISIT INFORMATION Patient Instructions My [facility] Additional Instructions Rest. STOP SMOKING Follow up with PCP about EKG changes. Return to the ER for any worsening symptoms Zithromax - daily for 10 days Problem Qualifiers Additional Impressions: Left-sided back pain Back pain location: thoracic back pain Chronicity: acute Qualified Codes: M54.6 - Pain in thoracic spine
[2017-05-11 03:18] LABS: BASO % 0.6 %; BASO ABS # 0.06 K/uL (0-0.2); EOS % 2.2 %; EOS ABS # 0.22 K/uL (0-0.5); HEMATOCRIT 45.1 % (42-52); HEMOGLOBIN 16.1 g/dL (14.0-18.0); IG# 0.04 K/uL (0.00-0.02); LYMPH % 36.3 %; LYMPH ABS # 3.58 K/uL (1.2-3.4); MEAN CELL VOLUME 84.6 fL (80-100); MEAN CORPUSCULAR HEMOGLOBIN 30.2 pg (25-34); MEAN CORPUSCULAR HGB CONC 35.7 g/dl (32-36); MEAN PLATELET VOLUME 9.9 fL (7.4-10.4); MONO % 5.1 %; NEUT % 55.4 %; NEUT ABS # 5.46 K/uL (1.4-6.5); PLATELET COUNT 273 K/uL (130-400); RED CELL DISTRIBUTION WIDTH CV 13.6 % (11.5-14.5); RED CELL DISTRIBUTION WIDTH SD 41.6 fL (36.4-46.3); WHITE BLOOD COUNT 9.86 K/uL (4.8-10.8)
[2017-05-11 03:19] LABS: INR 0.9 (0.9-1.1); PTT PATIENT 25.9 SECONDS (21.0-31.0)
[2017-05-11 03:23] LABS: ALBUMIN 3.8 gm/dl (3.4-5.0); ALT/SGPT 25 U/L (12-78); AST/SGOT 17 U/L (15-37); BLOOD UREA NITROGEN 10 mg/dl (7-18); CALCIUM 8.9 mg/dl (8.5-10.1); CARBON DIOXIDE 21 mmol/L (21-32); CREATININE 1.24 mg/dl (0.60-1.40); GLUCOSE 136 mg/dl (70-99); LIPASE 385 U/L (73-393); POTASSIUM 3.6 mmol/L (3.5-5.1); SODIUM 139 mmol/L (136-145)
[2017-05-11 03:28] LABS: ALKALINE PHOSPHATASE 83 U/L (45-117)
[2017-05-11 04:34] VITALS: TEMP 36.7
[2017-05-11 05:35] VITALS: BP 132/80; PULSE 89; O2SAT 94
[2017-05-11] MEDS ORDERED: AZITHROMYCIN 250 MG TAB PO STA (05:35)
[2017-05-11] MEDS ORDERED: AZIT500T26 PO (05:38)
--- NOTE | 2017-05-11 07:26 | DIAGNOSTIC IMAGING REPORT ---
CT ANGIOGRAM OF THE CHEST CLINICAL HISTORY: Atypical chest pain. Dyspnea. COMPARISON STUDY: Chest x-ray dated 05/11/2017. Chest CT dated 08/28/2016. TECHNIQUE: Following the IV administration of 87 cc of Optiray 320, CT angiogram of the chest was performed from the upper abdomen to the thoracic inlet utilizing the pulmonary embolus protocol. Images are reviewed in the axial, sagittal, and coronal planes. 3-D MIPS images are created and assessed. IV contrast was administered without complication. A dose lowering technique was utilized adhering to the principles of ALARA. CT DOSE: 307.09 mGy.cm FINDINGS: Thyroid: Imaged portions of the thyroid gland are normal in size and attenuation. Thoracic aorta: The thoracic aorta is normal in caliber and demonstrates standard 3-vessel arch anatomy. No dissection is seen. Pulmonary vasculature: The pulmonary trunk is normal in caliber. There are no filling defects identified in main, lobar, or segmental pulmonary branches to suggest pulmonary embolus. Heart: The heart is normal in size and without pericardial effusion. There are scattered coronary artery calcifications. Lungs and pleural spaces: Emphysematous change is noted. There is no airspace consolidation or pleural effusion. The trachea and central airways are clear. Dependent atelectasis is noted in the right lung base. Mild peribronchial thickening suggests reactive airway disease. Mediastinum: There is no mediastinal lymphadenopathy. Addis: Clear. Axillae: There is no axillary lymphadenopathy. Upper abdomen: Partially visualized upper abdominal viscera is within normal limits. Skeletal structures: No lytic or blastic bony lesions are seen. IMPRESSION: 1. There is no evidence of pulmonary embolus in the main, lobar, or segmental pulmonary arteries. 2. Emphysema. 3. No airspace consolidation or pleural effusion is identified. Mild peribronchial thickening suggests reactive airway disease. Clinical correlation will be required. Electronically signed by: Cordell Drummond M.D. 05/11/2017 7:25 AM Dictated Date/Time: 05/11/2017 7:18 AM
--- NOTE | 2017-05-11 07:57 | DIAGNOSTIC IMAGING REPORT ---
SINGLE VIEW CHEST CLINICAL HISTORY: Atypical chest pain. FINDINGS: An AP, portable, upright chest radiograph is compared to study dated 01/17/2015. The examination is mildly degraded by portable technique and patient rotation. The cardiomediastinal silhouette is unremarkable. The lungs and pleural spaces are clear. No pneumothorax is seen. The bony thorax is grossly intact. IMPRESSION: No active disease in the chest. Electronically signed by: Cordell Drummond M.D. 05/11/2017 7:55 AM Dictated Date/Time: 05/11/2017 7:55 AM
== END 2017-05-11 05:45 | disposition home or self-care (01) ==
LOC: EDBD 01:40 → C.EDB 01:42
DX: R07.9 Chest pain, unspecified (principal); M54.6 Pain in thoracic spine; J40 Bronchitis, not specified as acute or chronic; F17.210 Nicotine dependence, cigarettes, uncomplicated; I48.91 Unspecified atrial fibrillation; J44.9 Chronic obstructive pulmonary disease, unspecified; E78.5 Hyperlipidemia, unspecified; I10 Essential (primary) hypertension; I47.1 Supraventricular tachycardia; I25.2 Old myocardial infarction; R94.31 Abnormal electrocardiogram [ECG] [EKG]

== ENCOUNTER → 2017-05-16 | Day surgery (SDC) | payer OTHER ==
[2017-05-02 13:04] VITALS: Ht 175.3 cm; Wt 81.8 kg
[~2017-05-16] VITALS: Ht 175.3 cm; Wt 81.8 kg
[~2017-05-16] MED LIST changes: +AZIT500T26 PO; +ESMOLOL HCL 10 MG/ML 10 ML VIAL ONE; -IPRA1AER2 INH; +LIDOCAINE HCL 2% 2 ML VIAL (20MG/ML) ONE; +MIDAZOLAM HCL 1 MG/ML 2ML VIAL ONE; +ONDANSETRON INJ 2 MG/ML 2 ML VIAL ONE; +PROPOFOL IV EMULSION 10 MG/ML 20 ML VIAL IV ONE; +PRVHFAIN INH; +SODIUM CHLORIDE 0.9% 500ML 500 ML IV ONE
--- NOTE | 2017-05-16 10:20 | Endo History and Physical ---
History & Physical Date of Service: May 16, 2017. Chief Complaint: History of colon polyps Referring Physician: Carolynn Snyder History of Present Illness 47 yo CM who presents for colonoscopy secondary to history of colon polyps. Past Medical History COPD, NE Past Surgical History Hx Cardiac Surgery: Yes (CARDIAC ABLATION) Hx Internal Defibrillator: No Hx Pacemaker: No Hx Abdominal Surgery: No Hx of Implantable Prosthesis: No Hx Post-Op Nausea and Vomiting: No Hx Cancer Surgery: No Hx Thoracic Surgery: No Hx Orthopedic: Yes (RT SHOULDER DELTOID AND RCR REPAIR, RT WRIST JOINT SURGERY) Hx Urinary Tract Surgery: No Family History None Social History Smoking Status: Current Every Day Smoker Hx Substance Use: No Hx Alcohol Use: Yes (OCCASIONALLY) Allergies Coded Allergies: No Known Allergies (Unverified , 05/16/17) Current Medications Reported Home Medications Medications Dose Route/Sig Max Daily Dose Days Date Category Zithromax (Azithromycin) 500 Mg Tab 500 Mg PO DAILY 05/11/17 Rx Ventolin Hfa (Albuterol) 60 Puffs/5400 Mcg Aers 2 INH Q4H PRN 05/11/17 Reported Singulair (Montelukast Sodium) 10 Mg Tab 10 Mg PO HS 05/02/17 Reported Tiazac (Diltiazem HCl) 240 Mg Capcr 240 Mg PO QPM 05/02/17 Reported Proscar (Finasteride) 5 Mg Tab 5 Mg PO DAILY AT LUNCH 05/02/17 Reported Vital Signs Weight (Kilograms): 81.82 Height (Feet): 5 Height (Inches): 9 Physical Exam General Appearance: WD/WN, no apparent distress Respiratory/Chest: Auscultation: breath sounds normal Cardiovascular: Heart Auscultation: RRR Abdomen: Bowel Sounds: normal Inspection & Palpation: soft, non-distended, no tenderness, guarding & rebound Assessment and Plan Assessment: 47 yo CM who presents for colonoscopy secondary to history of colon polyps. Plan: Proceed with colonoscopy.
[2017-05-16 10:29] VITALS: TEMP 36.9
--- NOTE | 2017-05-16 11:37 | Discharge Instructions ---
Endoscopy Patient Instructions Date / Procedure(s) Performed May 16, 2017. Colonoscopy Allergy Information Coded Allergies: No Known Allergies (Unverified , 05/16/17) Discharge Date / Findings May 16, 2017. Colon polyps Internal hemorrhoids Medication Instructions OK to resume all medications today as prescribed Reported Home Medications Medications Dose Route/Sig Max Daily Dose Days Date Category Zithromax (Azithromycin) 500 Mg Tab 500 Mg PO DAILY 05/11/17 Rx Singulair (Montelukast Sodium) 10 Mg Tab 10 Mg PO HS 05/02/17 Reported Tiazac (Diltiazem HCl) 240 Mg Capcr 240 Mg PO QPM 05/02/17 Reported Proscar (Finasteride) 5 Mg Tab 5 Mg PO DAILY AT LUNCH 05/02/17 Reported Provider Instructions Activity Restrictions - No exercising or heavy lifting for 24 hours. - Do not drink alcohol the day of the procedure. - Do not drive a car or operate machinery until the day after the procedure. - Do not make any important decisions or sign important papers in 24 hours after the procedure. Following Day: - Return to full activity which may include returning to work/school. Diet Start your diet with liquids and light foods (jello, soup, juice, toast). Then eat your usual diet if not nauseated. Treatment For Common After Affects For mild abdominal pain, bloating, or excessive gas: - Rest - Eat lightly - Lie on right side Follow-Up Information Follow-up with Dr. Snyder as scheduled Anesthesia Information What You Should Know You have had a procedure that required some medicine to reduce anxiety and discomfort. This treatment is called moderate sedation. After receiving the treatment, you may be sleepy, but you will be able to breathe on your own. The effects of the treatment may last for several hours. Follow these instructions along with Activity/Diet recommendations noted above: * Do NOT do anything where dizziness or clumsiness would be dangerous. * Rest quietly at home today, then you can be up and about tomorrow. * Have a responsible person stay with you the rest of today. * You may have had an I.V. today. If so, you may take the dressing off later today. Recommendations Call your doctor if: * Trouble breathing * Continuous vomiting for more than 24 hours * Temperature above 101 degrees * Severe abdominal pain or bloating * Pain not relieved by pain medicine ordered * There is increased drainage or redness from any incision * A large amount of rectal bleeding greater than 2-3 tablespoons. (If you had a polyp/s removed or have hemorrhoids, a small amount of blood - from the rectum is to be expected.) * You have any unanswered questions or concerns. IN THE EVENT OF A SERIOUS EMERGENCY, GO TO THE NEAREST EMERGENCY ROOM Your discharge instructions were prepared by provider Abel Carvajal. Patient Instructions Signature Page Ana Daniel Patient (or Guardian) Signature/Date: I have read and understand the instructions given to me by my caregivers. Caregiver/RN/Doctor Signature/Date: The above-named patient and/or guardian has received patient instructions on this date. + Original Patient Signature Page (only) stays with chart. Please make copy for patient.
--- NOTE | 2017-05-16 11:47 | GI REPORT ---
Procedure Date: 05/16/2017 10:30 AM Procedure: Colonoscopy Indications: High risk colon cancer surveillance: Personal history of colonic polyps Medicines: Monitored Anesthesia Care Complications: No immediate complications. Estimated Blood Loss: Estimated blood loss: none. Procedure: Pre-Anesthesia Assessment: - Prior to the procedure, a History and Physical was performed, and patient medications and allergies were reviewed. The patient's tolerance of previous anesthesia was also reviewed. The risks and benefits of the procedure and the sedation options and risks were discussed with the patient. All questions were answered, and informed consent was obtained. Prior Anticoagulants: The patient has taken no previous anticoagulant or antiplatelet agents. ASA Grade Assessment: II - A patient with mild systemic disease. After reviewing the risks and benefits, the patient was deemed in satisfactory condition to undergo the procedure. After I obtained informed consent, the scope was passed under direct vision. Throughout the procedure, the patient's blood pressure, pulse, and oxygen saturations were monitored continuously. The scope was introduced through the anus and advanced to the cecum, identified by appendiceal orifice and ileocecal valve. The colonoscopy was performed without difficulty. The patient tolerated the procedure well. The quality of the bowel preparation was good. The ileocecal valve, appendiceal orifice, and rectum were photographed. Findings: The perianal and digital rectal examinations were normal. A 15 mm polyp was found in the cecum. The polyp was sessile. The polyp was removed with a piecemeal technique using a hot snare. Resection and retrieval were complete. A 7 mm polyp was found in the ascending colon. The polyp was flat. The polyp was removed with a hot snare. Resection and retrieval were complete. A 16 mm polyp was found in the sigmoid colon. The polyp was pedunculated. The polyp was removed with a hot snare. Resection and retrieval were complete. To prevent bleeding after the polypectomy, one hemostatic clip was successfully placed (MR conditional). There was no bleeding at the end of the procedure. Non-bleeding internal hemorrhoids were found during retroflexion. The hemorrhoids were small. Impression: - One 15 mm polyp in the cecum, removed piecemeal using a hot snare. Resected and retrieved. - One 7 mm polyp in the ascending colon, removed with a hot snare. Resected and retrieved. - One 16 mm polyp in the sigmoid colon, removed with a hot snare. Resected and retrieved. Clip (MR conditional) was placed. - Non-bleeding internal hemorrhoids. Recommendation: - Resume previous diet. - Continue present medications. - Repeat colonoscopy for surveillance based on pathology results. - Return to primary care physician as previously scheduled. Abel Carvajal, DO 05/16/2017 11:46:45 AM This report has been signed electronically. Note Initiated On: 05/16/2017 10:30 AM I attest to the content of the Intraoperative Record and orders documented therein, exceptions below
[2017-05-16 12:15] VITALS: BP 158/91; PULSE 89; O2SAT 97
--- NOTE | 2017-05-16 13:11 | Anesthesiology Progress Note ---
Anesthesia Post Op Note Date & Time May 16, 2017 at 13:11 Vital Signs Pain Intensity: 0 Vital Signs Past 12 Hours Date Time Temp Pulse Resp B/P (MAP) Pulse Ox O2 Delivery O2 Flow Rate FiO2 05/16/17 12:15 89 20 158/91 (113) 97 Room Air 05/16/17 11:54 92 18 132/91 (105) 98 Room Air 05/16/17 11:38 92 18 110/77 (88) 96 Room Air 05/16/17 10:29 36.9 108 18 189/103 (131) 97 Room Air Notes Mental Status: alert / awake / arousable, participated in evaluation Pt Amnestic to Procedure: Yes Nausea / Vomiting: adequately controlled Pain: adequately controlled Airway Patency, RR, SpO2: stable & adequate BP & HR: stable & adequate Hydration State: stable & adequate Anesthetic Complications: no major complications apparent
== END | disposition home or self-care (01) ==
LOC: C.GI 09:42
PROVIDERS: ATTEND Internal Medicine
DX: Z12.11 Encounter for screening for malignant neoplasm of colon (principal); D12.0 Benign neoplasm of cecum; D12.2 Benign neoplasm of ascending colon; K64.8 Other hemorrhoids; Z86.010 Personal history of colon polyps; N40.0 Benign prostatic hyperplasia without lower urinary tract symptoms; J44.9 Chronic obstructive pulmonary disease, unspecified; F17.200 Nicotine dependence, unspecified, uncomplicated; I25.2 Old myocardial infarction; Z86.711 Personal history of pulmonary embolism

== ENCOUNTER 2022-07-08 12:57 | Inpatient (IN) ==
[2022-07-08] MEDS ORDERED: SODIUM CHLORIDE 0.9% 1000ML 1,000 ML IV SCH (13:15)
[2022-07-08] MEDS ORDERED: LORazepam 2 MG/1 ML VIAL IV STA (13:17)
[2022-07-08] MEDS: NITROGLYCERIN SL 0.4 MG/TAB TAB SL PRN ×2 (13:19→13:25)
--- NOTE | 2022-07-08 13:20 | Emergency Department Note ---
Impression & Plan ST elevation myocardial infarction (STEMI), Alcohol use disorder, Current smoker ED Provider Note NAME: DAYANARA MOSS AGE: 52 SEX: M ARRIVES VIA: Ambulance INFORMANT: Patient ED PROVIDER(S): Steve Suarez MD CHIEF COMPLAINT: Chest pain PLAN: Disposition: Admit MEDICAL DECISION MAKING: The patient is a 52-year-old gentleman with a past medical history of COPD, daily smoking, atrial fibrillation and SVT status post ablation per his report for reference and his medical record, history of alcohol use, BPH who presents to the emergency department via EMS for acute onset substernal chest pain/pressure rating to his left arm where he feels lightheaded and sweaty that occurred when he was drinking coffee this morning but reports he has been having intermittent pain over the past week and notes that he last had it yesterday when he was just walking outside. The patient was seen in this emergency department approximate 2 weeks ago for symptoms of a scrotal/groin cellulitis which she reports resolved after being treated with ceftriaxone emergency depart ment and a course of doxycycline. He denies any fevers. He reports he did drink alcohol last night. He eventually admitted that he drinks alcohol daily and has usually around 7 beers. However, he does feel that he would not withdrawal necessarily. Patient did receive 324 mg of aspirin by EMS but did not receive nitro as his pain was fluctuating frequently. On my evaluation the patient reports 10/10 substernal pressure radiating to his left shoulder and arm. On arrival the patient is uncomfortable but no acute distress, afebrile with heart rate in the 130s and vital signs otherwise stable. He appears clinically dry. EKG demonstrates sinus tachycardia with anterior ST elevations reciprocal depressions concerning for STEMI. Chest x-ray negative for acute cardiopulmonary process per my preliminary review. WBC and platelets within normal limits. H/H 17.6/40.3 consistent with the pat ient's clinically dry appearance but with normal limits. Chemistry without metabolic acidosis. LFTs unremarkable. Initial HS 111. Medical etoh undetectable. Given the patient's EKG and exam and presentation concerning for ACS heart alert was activated. Patient was treated with sublingual nitroglycerin x2 and 1 mg of IV Ativan (given at risk for etoh withdrawal) with subsequent resolution of his pain to a 0/10. Repeat EKG at this time demonstrated resolution of ST elevations. Case was discussed with Dr. Molina, [facility] hospitalist, who will evaluate the patient for admission following Mobile Device [facility]. The patient was transferred to the Mobile Device Developer for intervention per Dr. Castillo. Triage Nursing notes reviewed and agree them. Prior/outside medical records reviewed Vital Signs: reviewed Differential diagnosis: Cardiac ischemia, aortic dissection, pulmonary embolism, pneumothorax, pneumonia, pericarditis, myocarditis, esophageal rupture, GERD, cholecystitis, pancreatitis, musculoskeletal, as well as other pathologies. ER treatment provided: See below. Diagnostics interpreted by me: ECG: Sinus tachycardia with occasional PVCs, 134 bpm, ST elevation anteriorly with lateral depression. Significantly changed compared to December 11, 2019. Cardiac Monitoring: An order for continuous cardiac monitoring was placed and demonstrated Sinus tachycardia with occasional PVCs, 134 bpm. Laboratory studies: See below Imaging studies: See below Consultation(s): Dr. Molina, [facility] hospitalist Dr. Castillo, Interventional cardiology HPI: The patient is a 52-year-old gentleman with a past medical history of COPD, daily smoking, atrial fibrillation and SVT status post ablation per his report for reference and his medical record, history of alcohol use, BPH who presents to the emergency department via EMS for acute onset substernal chest pain/pressure rating to his left arm where he feels lightheaded and sweaty that occurred when he was drinking coffee this morning but reports he has been having intermittent pain over the past week and notes that he last had it yesterday when he was just walking outside. The patient was seen in this emergency department approximate 2 weeks ago for symptoms of a scrotal/groin cellulitis which she reports resolved after being treated with ceftriaxone emergency department and a course of doxycycline. He denies any fevers. He reports he did drink alcohol last night. He eventually admitted that he drinks alcohol daily and has usually around 7 beers. However, he does feel that he would not withdrawal necessarily. Patient did receive 324 mg of aspirin by EMS but did n ot receive nitro as his pain was fluctuating frequently. On my evaluation the patient reports 10/10 substernal pressure radiating to his left shoulder and arm. ROS: See above HPI for pertinent positives & negatives. A total of 10 systems reviewed and were otherwise negative. VITALS:See Below PHYSICAL EXAMINATION: GENERAL: Awake, alert, uncomfortable-appearing, in no distress HENT: Normocephalic, atraumatic. Oropharynx with dry mucous membranes and otherwise unremarkable. EYES: Normal conjunctiva. Sclera non-icteric. NECK: Supple. No nuchal rigidity. FROM. No JVD. RESPIRATORY: Clear to auscultation. CARDIAC: Tachycardic rate, normal rhythm. Extremities warm and well perfused. Pulses equal. ABDOMEN: Soft, non-distended. No tenderness to palpation. No rebound or guarding. No masses. : wnl MUSCULOSKELETAL: Chest examination reveals no tenderness. The back is symmetrical on inspection without obvious abnormality. There is no CVA tenderness to palpation. No joint edema. LOWER EXTREMITIES: Calves are equal size bilaterally and non-tender. No edema. No discoloration. NEURO: Normal sensorium. No sensory or motor deficits noted. SKIN: Diaphoretic. No rash or jaundice noted. ED COURSE: Critical Care: I have personally spent greater than 32 minutes of critical care time in the direct management of this patient. This includes bedside care, interpretation of diagnostic studies, and testing, discussion with consultants, patient, and family members, and other required patient management activities. This 32 minutes is in excess of all separately billable procedures. Steve Suarez MD Past Med/Surg History Medical History (Updated 07/08/22 @ 16:11 by Piter Felder MD, [facility]) COPD (chronic obstructive pulmonary disease) Heart disease Surgical History History of cardiac radiofrequency ablation Social History Smoking Status: Current every day smoker Tobacco Type: Cigarettes Cigarettes Per Day: Pack and 1/4; Second Hand Exposure: Yes; Do You Dip or Chew Tobacco: No; Hx Alcohol Use: Yes Alcohol type: beer Hx Substance Use: No Preferred Language: Czech Communication Ability: Effective Fret Saw Operator Required: No Beliefs That Will Affect Care: None marital status: Current Living Situation: Significant Other current occupational status: unemployed Feels Safe at Home: Yes Assistive Devices: None Allergies Allergies Allergy/AdvReac Type Severity Reaction Status Date / Time No Known Allergies Allergy Verified 12/06/21 01:23 Home Meds Home Medications Medication Instructions Recorded Confirmed albuterol sulfate 90 mcg/actuation 2 puff inhalation Q4H PRN 01/13/18 07/08/22 aerosol inhaler (Ventolin HFA) Shortness Of Breath Or Wheezing atorvastatin 10 mg tablet 0 mg PO DAILY 12/06/21 07/08/22 lorazepam 0 mg PO DAILY 07/08/22 07/08/22 metoprolol tartrate 25 mg tablet 25 mg PO DAILY 07/08/22 07/08/22 Previous Rx's Medication Instructions Recorded cyclobenzaprine 10 mg tablet 10 mg PO TID PRN muscle spasm #20 12/06/21 tabs Results & Data (ED) Vital Signs Vital Signs - 24 hr 07/08/22 13:02 07/08/22 13:09 07/08/22 13:06 Temperature 36.3 C L Temperature Source Oral Pulse Rate 122 H 123 H Pulse Rate [Apical] Pulse Rate from SpO2 Sensor Pulse Rhythm [Apical] Respiratory Rate 19 Respiratory Effort / Characteristics Respiratory Depth Normal Blood Pressure 135/106 H Blood Pressure [Right Arm] Blood Pressure Mean 115 Blood Pressure Mean [Right Arm] Pulse Oximetry 99 Oxygen Delivery Method Room Air Room Air Oxygen Flow Rate Sepsis Recent Fever Within 48 Hours No Sepsis New/Unexplained Change in Mental Status N/A Sepsis Action Taken by Nursing No Action Required Oxygen Flow Rate - Titration Pulse Oximetry Post Tiitration 07/08/22 13:22 07/08/22 13:24 07/08/22 13:28 Temperature Temperature Source Pulse Rate Pulse Rate [Apical] 128 H Pulse Rate from SpO2 Sensor Pulse Rhythm [Apical] Regular Respiratory Rate 16 Respiratory Effort / Characteristics Non-Labored Respiratory Depth Normal Blood Pressure Blood Pressure [Right Arm] 128/89 Blood Pressure Mean Blood Pressure Mean [Right Arm] 102 Pulse Oximetry 99 97 Oxygen Delivery Method Nasal Cannula Room Air Nasal Cannula Oxygen Flow Rate 2 Sepsis Recent Fever Within 48 Hours Sepsis New/Unexplained Change in Mental Status Sepsis Action Taken by Nursing Oxygen Flow Rate - Titration 2 Pulse Oximetry Post Tiitration 99 07/08/22 13:30 07/08/22 13:35 07/08/22 13:41 Temperature Temperature Source Pulse Rate Pulse Rate [Apical] 122 H 122 H 129 H Pulse Rate from SpO2 Sensor Pulse Rhythm [Apical] Respiratory Rate 16 16 16 Respiratory Effort / Characteristics Non-Labored Non-Labored Respiratory Depth Normal Normal Blood Pressure Blood Pressure [Right Arm] 105/75 134/90 124/94 Blood Pressure Mean Blood Pressure Mean [Right Arm] 85 104 104 Pulse Oximetry 98 98 98 Oxygen Delivery Method Nasal Cannula Nasal Cannula Nasal Cannula Oxygen Flow Rate 2 2 2 Sepsis Recent Fever Within 48 Hours Sepsis New/Unexplained Change in Mental Status Sepsis Action Taken by Nursing Oxygen Flow Rate - Titration Pulse Oximetry Post Tiitration 07/08/22 13:40 07/08/22 13:05 07/08/22 13:15 Temperature Temperature Source Pulse Rate 123 H Pulse Rate [Apical] 130 H Pulse Rate from SpO2 Sensor 121 H Pulse Rhythm [Apical] Respiratory Rate 16 19 Respiratory Effort / Characteristics Non-Labored Respiratory Depth Normal Blood Pressure 127/86 Blood Pressure [Right Arm] 124/94 Blood Pressure Mean 109 Blood Pressure Mean [Right Arm] 104 Pulse Oximetry 98 99 Oxygen Delivery Method Oxygen Flow Rate Sepsis Recent Fever Within 48 Hours Sepsis New/Unexplained Change in Mental Status Sepsis Action Taken by Nursing Oxygen Flow Rate - Titration Pulse Oximetry Post Tiitration 07/08/22 13:15 07/08/22 13:24 07/08/22 13:24 Temperature Temperature Source Pulse Rate 140 H 130 H Pulse Rate [Apical] Pulse Rate from SpO2 Sensor 131 H Pulse Rhythm [Apical] Respiratory Rate 20 18 Respiratory Effort / Characteristics Respiratory Depth Blood Pressure 128/89 Blood Pressure [Right Arm] Blood Pressure Mean 110 Blood Pressure Mean [Right Arm] Pulse Oximetry 99 Oxygen Delivery Method Oxygen Flow Rate Sepsis Recent Fever Within 48 Hours Sepsis New/Unexplained Change in Mental Status Sepsis Action Taken by Nursing Oxygen Flow Rate - Titration Pulse Oximetry Post Tiitration 07/08/22 13:25 07/08/22 13:25 07/08/22 13:30 Temperature Temperature Source Pulse Rate 129 H Pulse Rate [Apical] Pulse Rate from SpO2 Sensor 129 H Pulse Rhythm [Apical] Respiratory Rate 23 Respiratory Effort / Characteristics Respiratory Depth Blood Pressure 135/87 105/75 Blood Pressure [Right Arm] Blood Pressure Mean 100 88 Blood Pressure Mean [Right Arm] Pulse Oximetry 99 Oxygen Delivery Method Oxygen Flow Rate Sepsis Recent Fever Within 48 Hours Sepsis New/Unexplained Change in Mental Status Sepsis Action Taken by Nursing Oxygen Flow Rate - Titration Pulse Oximetry Post Tiitration 07/08/22 13:30 07/08/22 13:35 07/08/22 13:35 Temperature Temperature Source Pulse Rate 129 H 122 H Pulse Rate [Apical] Pulse Rate from SpO2 Sensor 130 H 123 H Pulse Rhythm [Apical] Respiratory Rate 14 16 Respiratory Effort / Characteristics Respiratory Depth Blood Pressure 134/90 Blood Pressure [Right Arm] Blood Pressure Mean 105 Blood Pressure Mean [Right Arm] Pulse Oximetry 97 97 Oxygen Delivery Method Oxygen Flow Rate Sepsis Recent Fever Within 48 Hours Sepsis New/Unexplained Change in Mental Status Sepsis Action Taken by Nursing Oxygen Flow Rate - Titration Pulse Oximetry Post Tiitration 07/08/22 13:40 07/08/22 13:40 Temperature Temperature Source Pulse Rate 131 H Pulse Rate [Apical] Pulse Rate from SpO2 Sensor 126 H Pulse Rhythm [Apical] Respiratory Rate Respiratory Effort / Characteristics Respiratory Depth Blood Pressure 124/94 Blood Pressure [Right Arm] Blood Pressure Mean 99 Blood Pressure Mean [Right Arm] Pulse Oximetry 98 Oxygen Delivery Method Oxygen Flow Rate Sepsis Recent Fever Within 48 Hours Sepsis New/Unexplained Change in Mental Status Sepsis Action Taken by Nursing Oxygen Flow Rate - Titration Pulse Oximetry Post Tiitration Laboratory Data Attestation: I reviewed the patient's lab results. 07/08/22 13:21 07/08/22 13:21 Lab Results 07/08/22 07/08/22 07/08/22 Range/Units 13:21 13:21 13:21 WBC 9.22 (4.8-10.8) K/ul RBC 5.62 (4.70-6.10) M/uL Hgb 17.6 (14.0-18.0) g/dl POC Hgb (14.0-18.0) g/dl Hct 48.3 (42.0-52.0) % POC Hct (42-52) % MCV 85.9 (80.0-100.0) fL MCH 31.3 (25.0-34.0) pg MCHC 36.4 H (32.0-36.0) g/dL RDW Std Deviation 40.6 (36.4-46.3) fL RDW Coeff of Julieth 13.0 (11.5-14.5) % Plt Count 301 (130-400) K/uL MPV 10.1 (9.4-12.4) fL Immature Gran % (Auto) 0.3 % Neut % (Auto) 68.4 % Lymph % (Auto) 22.3 % [place] % (Auto) 6.7 % Eos % (Auto) 1.3 % Baso % (Auto) 1.0 % Neut # (Auto) 6.30 (1.40-6.50) K/uL Lymph # (Auto) 2.06 (1.2-3.4) K/uL [place] # (Auto) 0.62 H (0.11-0.59) K/uL Eos # (Auto) 0.12 (0-0.50) K/uL Baso # (Auto) 0.09 (0-0.2) K/uL Immature Gran # (Auto) 0.03 (0.01-0.20) K/uL PT 10.3 (9.0-12.0) Seconds INR 0.9 (0.9-1.1) APTT 26.9 (21.0-31.0) Seconds PTT Ratio 1.0 Activ Coag Time Kaolin (94-140) SECONDS POC Sodium (135-144) mmol/L Sodium (136-145) mmol/L POC Potassium (3.3-5.0) mmol/L Potassium (3.5-5.1) mmol/L POC Chloride (101-112) mmol/L Chloride (98-107) mmol/L Carbon Dioxide (21-32) mmol/L POC Total CO2 (24-31) mmol/L Anion Gap (3-11) POC Anion Gap (16-25) mmol/L POC BUN (7-18) mg/dl BUN (6-23) mg/dl Creatinine (0.6-1.4) mg/dl POC Creatinine (0.6-1.3) mg/dl Est Cr Clr Drug Dosing ml/min Est GFR ( Amer) ml/min Est GFR (Non-Af Amer) ml/min BUN/Creatinine Ratio (10-20) Glucose (70-99(Fasting)) mg/dl POC Glucose (other) (70-99) mg/dl Calcium (8.6-10.3) mg/dl POC Ioniz Calcium Ariela (1.12-1.32) mmol/l Magnesium (1.7-2.4) mg/dl Total Bilirubin (0.2-1.0) mg/dl AST (13-39) U/L ALT (7-52) U/L Alkaline Phosphatase (34-104) U/L Total Creatine Kinase (30-223) U/L Troponin I High Sens (0-20) pg/ml B-Natriuretic Peptide (0-100) pg/ml Total Protein (6.0-8.3) gm/dl Albumin (3.4-5.0) gm/dl Globulin (2.5-4.0) gm/dl Albumin/Globulin Ratio (0.9-2) Lipase (11-82) U/L TSH (0.300-4.500) uIu/ml Ethyl Alcohol mg/dL < 10.0 (<10.0) mg/dl 07/08/22 07/08/22 07/08/22 Range/Units 13:21 13:21 13:21 WBC (4.8-10.8) K/ul RBC (4.70-6.10) M/uL Hgb (14.0-18.0) g/dl POC Hgb (14.0-18.0) g/dl Hct (42.0-52.0) % POC Hct (42-52) % MCV (80.0-100.0) fL MCH (25.0-34.0) pg MCHC (32.0-36.0) g/dL RDW Std Deviation (36.4-46.3) fL RDW Coeff of Julieth (11.5-14.5) % Plt Count (130-400) K/uL MPV (9.4-12.4) fL Immature Gran % (Auto) % Neut % (Auto) % Lymph % (Auto) % [place] % (Auto) % Eos % (Auto) % Baso % (Auto) % Neut # (Auto) (1.40-6.50) K/uL Lymph # (Auto) (1.2-3.4) K/uL [place] # (Auto) (0.11-0.59) K/uL Eos # (Auto) (0-0.50) K/uL Baso # (Auto) (0-0.2) K/uL Immature Gran # (Auto) (0.01-0.20) K/uL PT (9.0-12.0) Seconds INR (0.9-1.1) APTT (21.0-31.0) Seconds PTT Ratio Activ Coag Time Kaolin (94-140) SECONDS POC Sodium (135-144) mmol/L Sodium 138 (136-145) mmol/L POC Potassium (3.3-5.0) mmol/L Potassium 4.3 (3.5-5.1) mmol/L POC Chloride (101-112) mmol/L Chloride 105 (98-107) mmol/L Carbon Dioxide 22 (21-32) mmol/L POC Total CO2 (24-31) mmol/L Anion Gap 11 (3-11) POC Anion Gap (16-25) mmol/L POC BUN (7-18) mg/dl BUN 12 (6-23) mg/dl Creatinine 1.03 (0.6-1.4) mg/dl POC Creatinine (0.6-1.3) mg/dl Est Cr Clr Drug Dosing 82.9 ml/min Est GFR ( Amer) 95.7 ml/min Est GFR (Non-Af Amer) 82.5 ml/min BUN/Creatinine Ratio 11.7 (10-20) Glucose 131 H (70-99(Fasting)) mg/dl POC Glucose (other) (70-99) mg/dl Calcium 9.1 (8.6-10.3) mg/dl POC Ioniz Calcium Ariela (1.12-1.32) mmol/l Magnesium 2.0 (1.7-2.4) mg/dl Total Bilirubin 0.4 (0.2-1.0) mg/dl AST 15 (13-39) U/L ALT 16 (7-52) U/L Alkaline Phosphatase 72 (34-104) U/L Total Creatine Kinase 58 (30-223) U/L Troponin I High Sens 111.2 H* (0-20) pg/ml B-Natriuretic Peptide 36 (0-100) pg/ml Total Protein 7.6 (6.0-8.3) gm/dl Albumin 4.3 (3.4-5.0) gm/dl Globulin 3.3 (2.5-4.0) gm/dl Albumin/Globulin Ratio 1.3 (0.9-2) Lipase 39 (11-82) U/L TSH 0.866 (0.300-4.500) uIu/ml Ethyl Alcohol mg/dL (<10.0) mg/dl 07/08/22 07/08/22 07/08/22 Range/Units 13:24 14:05 14:26 WBC (4.8-10.8) K/ul RBC (4.70-6.10) M/uL Hgb (14.0-18.0) g/dl POC Hgb 18.0 (14.0-18.0) g/dl Hct (42.0-52.0) % POC Hct 53 H (42-52) % MCV (80.0-100.0) fL MCH (25.0-34.0) pg MCHC (32.0-36.0) g/dL RDW Std Deviation (36.4-46.3) fL RDW Coeff of Julieth (11.5-14.5) % Plt Count (130-400) K/uL MPV (9.4-12.4) fL Immature Gran % (Auto) % Neut % (Auto) % Lymph % (Auto) % [place] % (Auto) % Eos % (Auto) % Baso % (Auto) % Neut # (Auto) (1.40-6.50) K/uL Lymph # (Auto) (1.2-3.4) K/uL [place] # (Auto) (0.11-0.59) K/uL Eos # (Auto) (0-0.50) K/uL Baso # (Auto) (0-0.2) K/uL Immature Gran # (Auto) (0.01-0.20) K/uL PT (9.0-12.0) Seconds INR (0.9-1.1) APTT (21.0-31.0) Seconds PTT Ratio Activ Coag Time Kaolin 203 H 221 H (94-140) SECONDS POC Sodium 140 (135-144) mmol/L Sodium (136-145) mmol/L POC Potassium 4.3 (3.3-5.0) mmol/L Potassium (3.5-5.1) mmol/L POC Chloride 105 (101-112) mmol/L Chloride (98-107) mmol/L Carbon Dioxide (21-32) mmol/L POC Total CO2 19 L (24-31) mmol/L Anion Gap (3-11) POC Anion Gap 22.0 (16-25) mmol/L POC BUN 12 (7-18) mg/dl BUN (6-23) mg/dl Creatinine (0.6-1.4) mg/dl POC Creatinine 0.9 (0.6-1.3) mg/dl Est Cr Clr Drug Dosing ml/min Est GFR ( Amer) ml/min Est GFR (Non-Af Amer) ml/min BUN/Creatinine Ratio (10-20) Glucose (70-99(Fasting)) mg/dl POC Glucose (other) 134 H (70-99) mg/dl Calcium (8.6-10.3) mg/dl POC Ioniz Calcium Ariela 1.11 L (1.12-1.32) mmol/l Magnesium (1.7-2.4) mg/dl Total Bilirubin (0.2-1.0) mg/dl AST (13-39) U/L ALT (7-52) U/L Alkaline Phosphatase (34-104) U/L Total Creatine Kinase (30-223) U/L Troponin I High Sens (0-20) pg/ml B-Natriuretic Peptide (0-100) pg/ml Total Protein (6.0-8.3) gm/dl Albumin (3.4-5.0) gm/dl Globulin (2.5-4.0) gm/dl Albumin/Globulin Ratio (0.9-2) Lipase (11-82) U/L TSH (0.300-4.500) uIu/ml Ethyl Alcohol mg/dL (<10.0) mg/dl Administered Medications Atorvastatin Calcium (Atorvastatin 40 Mg Tab) 40 mg PO QAM [facility] Stop: 08/07/22 14:59 Last Admin: 07/08/22 16:07 Dose: 40 mg Documented By: GPF Folic Acid 1 mg/ Syringe 10 mls @ 5 [facility]: 08/07/22 15:59 Last Admin: 07/08/22 16:07 Dose: 5 mls/min Documented By: GPF Metoprolol Tartrate (Metoprolol Tartrate 25 Mg Tab) 25 mg PO BID [facility] Stop: 08/07/22 20:59 Last Admin: 07/08/22 20:11 Dose: 25 mg Documented By: VK Miscellaneous (Icu Electrolyte Replacement Protocol) 1 each N/A BID@,18 [facility]; Protocol Stop: 07/15/22 17:59 Last Admin: 07/08/22 17:50 Dose: Not Given Documented By: GPF Nicotine (Nicotine 14 Mg/24 Hr Patch) 14 mg TD QAM [facility] Stop: 08/07/22 16:29 Last Admin: 07/08/22 16:38 Dose: 14 mg Documented By: GPF Nitroglycerin (Nitroglycerin Sl 0.4 Mg/Tab Tab) 0.4 mg SL Q5M PRN PRN Reason: Chest Pain Last Admin: 07/08/22 13:25 Dose: 0.4 mg Documented By: Admin: 07/08/22 13:19 Dose: 0.4 mg Documented By: RC Pantoprazole Sodium (Pantoprazole 40 Mg Tab) 40 mg PO QAM [facility] Stop: 08/07/22 16:14 Last Admin: 07/08/22 16:17 Dose: 40 mg Documented By: GPF Thiamine HCl (Thiamine Hcl 100 Mg Tab) 100 mg PO QAM [facility] Stop: 08/07/22 16:14 Last Admin: 07/08/22 16:17 Dose: 100 mg Documented By: GPF Ticagrelor (Ticagrelor 90 Mg Tab) 90 mg PO BID [facility] Stop: 08/07/22 20:59 Last Admin: 07/08/22 20:11 Dose: 90 mg Documented By: VK Umeclidinium/Vilanterol (Umeclidinium/Vilanterol 62.5/25mcg 7 Puffs/Inhaler) 1 puffs INH DAILY [facility] Stop: 08/07/22 16:29 Last Admin: 07/08/22 16:38 Dose: 1 puffs Documented By: GPF Discontinued Medications Fentanyl Citrate (Fentanyl Citrate Pf 100 Mcg/2 Ml Vial) Confirm Administered Dose 100 mcg .ROUTE .STK-MED ONE Stop: 07/08/22 13:37 Last Admin: 07/08/22 15:47 Dose: Not Given Documented By: GPF Heparin Sodium (Porcine) (Heparin (Porcine) 1000 Unit/Ml 10 Ml (Mobile Device Developer Use Only)) Confirm Administered Dose 10,000 units .ROUTE .STK-MED ONE Stop: 07/08/22 13:36 Last Admin: 07/08/22 14:14 Dose: 1,500 units Documented By: MARITO Heparin Sodium (Porcine) (Heparin Sod (Porcine) 1000 Unit/Ml) Confirm Administered Dose 1,000 units .ROUTE .STK-MED ONE Stop: 07/08/22 13:44 Last Admin: 07/08/22 13:45 Dose: 5,000 units Documented By: FAN Co-signed By: KORI Heparin Sodium/Dextrose (Heparin 33649 Unit/500 Ml D5w) Confirm Administered Dose 25,000 units IV .STK-MED ONE Stop: 07/08/22 13:44 Last Admin: 07/08/22 15:48 Dose: Not Given Documented By: GPF Heparin Sodium/Sodium Chloride (Heparin In Nss Infusion 1000 Unit/500 Ml (2 U/Ml) Bag) Confirm Administered Dose 3,000 units IV .STK-MED ONE Stop: 07/08/22 13:37 Last Admin: 07/08/22 15:47 Dose: Not Given Documented By: GPF Sodium Chloride (Nss 1000ml) 1,000 mls @ 999 mls/hr IV .Q1H1M JANET Stop: 07/08/22 14:15 Last Infusion: 07/08/22 15:49 Dose: 0 mls/hr Documented By: Admin: 07/08/22 13:23 Dose: 999 mls/hr Documented By: RC Magnesium Sulfate/Dextrose (Magnesium Sulfate / D5w) 1 gm in 100 mls @ 50 mls/hr IV ONE ONE Stop: 07/08/22 18:34 Last Infusion: 07/08/22 18:50 Dose: 0 mls/hr Documented By: Admin: 07/08/22 16:50 Dose: 50 mls/hr Documented By: GPF Sodium Phosphate 15 mmol/ (Sodium Chloride) 255 mls @ 88 mls/hr IV ONE ONE Stop: 07/08/22 19:38 Last Infusion: 07/08/22 20:44 Dose: 0 mls/hr Documented By: Admin: 07/08/22 17:50 Dose: 88 mls/hr Documented By: GPF Lidocaine HCl (Lidocaine 1% Local 20 Ml Vial) Confirm Administered Dose 40 ml .ROUTE .STK-MED ONE Stop: 07/08/22 13:41 Last Admin: 07/08/22 15:47 Dose: Not Given Documented By: GPF Lorazepam (Lorazepam 2 Mg/1 Ml Vial) 1 mg IV NOW STA Stop: 07/08/22 13:18 Last Admin: 07/08/22 13:23 Dose: 1 mg Documented By: RC Metoprolol Tartrate (Metoprolol Tartrate 1 Mg/Ml Vial) Confirm Administered Dose 5 mg IV .STK-MED ONE Stop: 07/08/22 14:01 Last Admin: 07/08/22 14:14 Dose: 5 mg Documented By: MARITO Midazolam HCl (Midazolam Hcl 1 Mg/Ml 2ml Vial) Confirm Administered Dose 2 mg .ROUTE .STK-MED ONE Stop: 07/08/22 13:36 Last Admin: 07/08/22 14:12 Dose: 2 mg Documented By: MARITO Midazolam HCl (Midazolam Hcl 1 Mg/Ml 2ml Vial) Confirm Administered Dose 2 mg .ROUTE .STK-MED ONE Stop: 07/08/22 14:01 Last Admin: 07/08/22 15:48 Dose: Not Given Documented By: GPF Nicardipine HCl (Nicardipine Hcl Inj 2.5 Mg/Ml 10 Ml Amp) Confirm Administered Dose 25 mg .ROUTE .STK-MED ONE Stop: 07/08/22 13:36 Last Admin: 07/08/22 15:47 Dose: Not Given Documented By: GPF Nitroglycerin/Dextrose (Nitroglycerin/D5w 100mcg/Ml 20ml Syr) Confirm Administered Dose 2,000 mcg .ROUTE .STK-MED ONE Stop: 07/08/22 13:37 Last Admin: 07/08/22 15:47 Dose: Not Given Documented By: GPF Ticagrelor (Ticagrelor 90 Mg Tab) Confirm Administered Dose 180 mg .ROUTE .STK- MED ONE Stop: 07/08/22 13:44 Last Admin: 07/08/22 13:45 Dose: 180 mg Documented By: Imaging Data Radiologist's Impression: Chest X-Ray 07/08/22 13:14 XR chest 1V portable HISTORY: 52 years-old Male Chest pain, nonspecific COMPARISON: Chest CT 12/06/2021, Chest CT 10/08/2021 TECHNIQUE: AP view of the chest FINDINGS: Cardiomediastinal and hilar silhouettes are within normal limits. There is no pneumothorax, pleural effusion, airspace consolidation or pulmonary edema. Bones appear grossly intact. IMPRESSION: No acute process. ACT 112: Negative or not required by law. The above report was generated using voice recognition software. It may contain grammatical, syntax or spelling errors. Electronically signed by: Jarred Parsons M.D. 07/08/2022 1:55 PM Discharge Plan Visit Data Chief Complaint: Chest Pain Stated Complaint: CHEST PAIN, ARM NUMBNESS, DIZZINESS ED Provider: Steve Suarez Discharge Problem: ST elevation myocardial infarction (STEMI), Alcohol use disorder, Current smoker Patient Disposition: Admitted As Inpatient Discharge Instructions Interventions: ED Discharge Assessment Last Done: 07/08/22 13:40
[2022-07-08] MEDS ORDERED: niCARdipine HCL INJ 2.5 MG/ML 10 ML AMP ONE (13:35)
[2022-07-08] MEDS ORDERED: MIDAZOLAM HCL 1 MG/ML 2ML VIAL ONE ×2 (13:35→14:00)
[2022-07-08] MEDS ORDERED: HEPARIN (PORCINE) 1000 UNIT/ML 10 ML (CATH LAB USE ONLY) ONE (13:35)
[2022-07-08] MEDS ORDERED: NITROGLYCERIN/D5W 100MCG/ML 20ML SYR ONE (13:36)
[2022-07-08] MEDS ORDERED: fentaNYL citrate PF 100 MCG/2 ML VIAL ONE (13:36)
[2022-07-08 13:37] LABS: iSTAT Creatinine 0.9 mg/dl (0.6-1.3); iSTAT Ionized Calcium 1.11 mmol/l (1.12-1.32); iSTAT Potassium 4.3 mmol/L (3.3-5.0)
[2022-07-08 13:40] LABS: Basophils # (auto) 0.09 K/uL (0-0.2); Eosinophils # (auto) 0.12 K/uL (0-0.50); Eosinophils % (auto) 1.3 %; Hematocrit (blood only) 48.3 % (42.0-52.0); Hemoglobin 17.6 g/dl (14.0-18.0); Immature Granulocytes # (auto) 0.03 K/uL (0.01-0.20); Immature Granulocytes % (auto) 0.3 %; Lymphocytes # (auto) 2.06 K/uL (1.2-3.4); Lymphocytes % (auto) 22.3 %; Mean Corpuscular Hemoglobin 31.3 pg (25.0-34.0); Mean Corpuscular Hgb Conc 36.4 g/dL (32.0-36.0); Mean Corpuscular Volume 85.9 fL (80.0-100.0); Mean Platelet Volume 10.1 fL (9.4-12.4); Monocytes # (auto) 0.62 K/uL (0.11-0.59); Monocytes % (auto) 6.7 %; Neutrophils % (auto) 68.4 %; Platelet Count 301 K/uL (130-400); RDW Standard Deviation 40.6 fL (36.4-46.3); Red Blood Count 5.62 M/uL (4.70-6.10); White Blood Count 9.22 K/ul (4.8-10.8)
[2022-07-08] MEDS ORDERED: LIDOCAINE 1% LOCAL 20 ML VIAL ONE (13:40)
[2022-07-08] MEDS ORDERED: TICAGRELOR 90 MG TAB ONE (13:43)
[2022-07-08] MEDS ORDERED: HEPARIN 25000 UNIT/500 ML D5W IV ONE (13:43)
[2022-07-08] MEDS ORDERED: HEPARIN SOD (PORCINE) 1000 UNIT/ML ONE (13:43)
--- NOTE | 2022-07-08 13:56 | XRay Report ---
XR chest 1V portable HISTORY: 52 years-old Male Chest pain, nonspecific COMPARISON: Chest CT 12/06/2021, Chest CT 10/08/2021 TECHNIQUE: AP view of the chest FINDINGS: Cardiomediastinal and hilar silhouettes are within normal limits. There is no pneumothorax, pleural e ffusion, airspace consolidation or pulmonary edema. Bones appear grossly intact. IMPRESSION: No acute process. ACT 112: Negative or not required by law. The above report was generated using voice recognition software. It may contain grammatical, syntax o r spelling errors. Electronically signed by: Jarred Parsons M.D. 07/08/2022 1:55 PM
[2022-07-08] MEDS ORDERED: METOPROLOL TARTRATE 1 MG/ML VIAL IV ONE (14:00)
[2022-07-08 14:12] LABS: INR 0.9 (0.9-1.1); Partial Thromboplastin Time 26.9 Seconds (21.0-31.0); Prothrombin Time 10.3 Seconds (9.0-12.0)
[2022-07-08 14:38] LABS: Albumin Level 4.3 gm/dl (3.4-5.0); Bilirubin,Total 0.4 mg/dl (0.2-1.0); Calcium 9.1 mg/dl (8.6-10.3); Potassium 4.3 mmol/L (3.5-5.1)
[2022-07-08 14:44] LABS: Albumin Globulin Ratio 1.3 (0.9-2); BUN Creatinine Ratio 11.7 (10-20); Creatinine Clr Calc Pharmacy 82.9 ml/min; Est GFR (African American) 95.7 ml/min; Est GFR (Non-African American) 82.5 ml/min; Globulin 3.3 gm/dl (2.5-4.0); Total Protein 7.6 gm/dl (6.0-8.3)
--- NOTE | 2022-07-08 14:48 | Pre Anesthesia Assessment ---
Date of Service July 08, 2022 Pre Sedation Assessment Vital Signs Temp Pulse Pulse Resp BP BP Pulse Ox 07/08/22 13:40 130 H 16 124/94 98 07/08/22 13:41 129 H 16 124/94 98 07/08/22 13:35 122 H 16 134/90 98 07/08/22 13:30 122 H 16 105/75 98 07/08/22 13:28 97 07/08/22 13:24 128 H 16 128/89 99 07/08/22 13:22 07/08/22 13:06 123 H 07/08/22 13:09 07/08/22 13:02 36.3 C L 122 H 19 135/106 H 99 O2 Del Method O2 Flow Rate 07/08/22 13:40 07/08/22 13:41 Nasal Cannula 2 07/08/22 13:35 Nasal Cannula 2 07/08/22 13:30 Nasal Cannula 2 07/08/22 13:28 Nasal Cannula 2 07/08/22 13:24 Room Air 07/08/22 13:22 Nasal Cannula 07/08/22 13:06 07/08/22 13:09 Room Air 07/08/22 13:02 Room Air Cardiovascular Additional Comments: Sinus tachycardia, S4 gallop Respiratory normal respiratory effort, lungs clear to auscultation Pre-Sedation Airway Assessment Smoking Status: Current every day smoker Mallampati 3 ASA for Notes The planned sedation has been discussed with the patient. Informed Consent was obtained. I have identified the patient, determined the appropriateness of sed ation and have assessed the patient immediately prior to the procedure. All medicine(s) and interventions are by my order. [facility] [place] Procedure Codes (Charges) Indication for Procedure Indication for procedure: ST elevation AK
--- NOTE | 2022-07-08 14:50 | Post Anesthesia Assessment ---
Date of Service July 08, 2022 Post Sedation Assessment Vital Signs Temp Pulse Pulse Resp BP BP Pulse Ox 07/08/22 13:40 130 H 16 124/94 98 07/08/22 13:41 129 H 16 124/94 98 07/08/22 13:35 122 H 16 134/90 98 07/08/22 13:30 122 H 16 105/75 98 07/08/22 13:28 97 07/08/22 13:24 128 H 16 128/89 99 07/08/22 13:22 07/08/22 13:06 123 H 07/08/22 13:09 07/08/22 13:02 36.3 C L 122 H 19 135/106 H 99 O2 Del Method O2 Flow Rate 07/08/22 13:40 07/08/22 13:41 Nasal Cannula 2 07/08/22 13:35 Nasal Cannula 2 07/08/22 13:30 Nasal Cannula 2 07/08/22 13:28 Nasal Cannula 2 07/08/22 13:24 Room Air 07/08/22 13:22 Nasal Cannula 07/08/22 13:06 07/08/22 13:09 Room Air 07/08/22 13:02 Room Air Recovery Score Activity: Moves 4 extremities Respiration: Deep Breath/Cough Circulation: +/-20% PreAnes Value Consciousness: Fully Awake Oxygen Saturation: > 92% On Room Air Discharge Sedation Level of Care: Fast Track Phase II Post Sedation Plan On clinical assessment, the patient appears to have tolerated the sedation without complications. Patient is recovering as anticipated. Patient will continue to be monitored by nursing and may be discharged when sedation discharge criteria are met per below protocol. Upon Completions of procedure up to 15 minutes continue every 5 minute vital signs and the P.A.R. score; then discharge to a Phase I or Fast Track to Phase II per the following guidelines: * Discharge Patient to appropriate Phase II area if PAR is 8 or greater or return to pre- procedure baseline. The post - procedure orders will be as directed. * If PAR score is less than 8 or not return to pre-procedure baseline then patient will follow Phase I monitoring till PAR is reached for Phase II. The Phase I may be done in procedure room or may call to secure a Phase I area. * If naloxone or flumazenil are used for reversal, hold in Phase I for continued monitoring from when last reversal dose was given for a minimum of 60 minutes or longer pending the nurse and/or physician discretion of patient condition before discharge to Phase II. Please call the Sedation Physician to re-evaluate and complete post-note for discharge to Phase II area. Do NOT discharge from procedure sedation or Phase 1 until post- sedation evaluation note is complete by procedure /sedation MD Sedation Discharge Instructions to be given to the patient at discharge to home. [facility] Procedure Codes (Charges) Indication for Procedure Indication for procedure: ST elevation PR Sedation/Anesthesia Procedure 1: Sedation/Anesthesia: 33431 Mod Sedation by the same physician;Init15 Min Child Age 5 & Up (Initial 15 min (start 1357)) Total Sedation Time (minutes): 28 Procedure 2: Sedation/Anesthesia: 77634 Mod Sedation by the same physician; Ea [id number] Minutes (Additional 13 min (end 1425)) Total Sedation Time (minutes): 28
--- NOTE | 2022-07-08 14:53 | History & Physical Report ---
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 Thiamine, folic acid -monitor for withdrawal symptoms, patient denies history of withdrawal (4) COPD (chronic obstructive pulmonary disease): Plan: -counseled smoking cessation -LAMA/LABA inhaler ordered per pulm Plan Code status- Full DVT ppx- SCDs, ambulation History of Present Illness Chief Complaint: chest pain Primary Care Provider: Carolynn Snyder Mr Ana Daniel is a 52 year old man with history of 1 ppd smoker, COPD, alcohol use disorder presents to the ER today with substernal chest pain and STEMI. Patient reports having intermittent chest pain for past several days but today while he was sitting he experienced substernal chest pain with radiation down both arms and across his chest associated with light headedness and nausea. 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 Received full dose aspirin by EMS. In ER received SL nitroglycerin and ativan 1mg IV. Of note, he reportedly drinks 7 beers daily, denies history of alcohol withdrawal Allergies Allergy/AdvReac Type Severity Reaction Status Date / Time No Known Allergies Allergy Verified 12/06/21 01:23 Home Medications Medication Instructions Recorded Confirmed Type albuterol sulfate 90 mcg/actuation 2 puff inhalation Q4H PRN 01/13/18 12/06/21 History aerosol inhaler (Ventolin HFA) Shortness Of Breath Or Wheezing atorvastatin 10 mg tablet 0 mg PO DAILY 12/06/21 12/06/21 History cyclobenzaprine 10 mg tablet 10 mg PO TID PRN muscle spasm #20 12/06/21 Rx tabs diltiazem HCl 120 mg capsule,24 0 mg PO DAILY 12/06/21 12/06/21 History hr,extended release ibuprofen 800 mg tablet 800 mg PO TID PRN pain #20 tabs 12/06/21 Rx Past Med/Surg History Medical History (Updated 07/08/22 @ 16:11 by Piter Felder MD, [facility]) COPD (chronic obstructive pulmonary disease) Heart disease Surgical History History of cardiac radiofrequency ablation Social History Smoking Status: Current every day smoker Tobacco Type: Cigarettes Cigarettes Per Day: Pack and 1/4; Second Hand Exposure: Yes; Do You Dip or Chew Tobacco: No; Hx Alcohol Use: Yes Alcohol type: beer Hx Substance Use: No Preferred Language: Lao Communication Ability: Effective Cotton Chopper Required: No Beliefs That Will Affect Care: None marital status: Current Living Situation: Significant Other current occupational status: unemployed Feels Safe at Home: Yes Assistive Devices: None Review of Systems Review of Systems: as above in HPI, remaining ROS otherwise negative Physical Exam Physical Exam: Appears older than stated age, no acute distress, pleasant and comfortable ENMT: head normocephalic, atraumatic, mucous membrane moist Respiratory: breathing comfortably on room air, no wheezing/rhonchi/rales Cardiovascular: tachycardic but regular, no murmurs/rubs/gallops Gastrointestinal (Abdomen): soft, non tender, non distended Musculoskeletal: No edema, right wrist with no evidence of bleeding currently, no cyanosis or clubbing Skin: no bruising, no rash, no ulcers noted on exposed skin Neurologic: awake, alert, spontaneously moving extremities Psychiatric: affect normal, speech linear, non pressured Results & Data Results & Data Vital Signs (Past 12 Hours) Vital Signs Temp Pulse Pulse Resp BP BP Pulse Ox 07/08/22 13:40 130 H 16 124/94 98 07/08/22 13:41 129 H 16 124/94 98 07/08/22 13:35 122 H 16 134/90 98 07/08/22 13:30 122 H 16 105/75 98 07/08/22 13:28 97 07/08/22 13:24 128 H 16 128/89 99 07/08/22 13:22 07/08/22 13:06 123 H 07/08/22 13:09 07/08/22 13:02 36.3 C L 122 H 19 135/106 H 99 O2 Del Method O2 Flow Rate 07/08/22 13:40 07/08/22 13:41 Nasal Cannula 2 07/08/22 13:35 Nasal Cannula 2 07/08/22 13:30 Nasal Cannula 2 07/08/22 13:28 Nasal Cannula 2 07/08/22 13:24 Room Air 07/08/22 13:22 Nasal Cannula 07/08/22 13:06 07/08/22 13:09 Room Air 07/08/22 13:02 Room Air Code Status & VTE Plan VTE Prophylaxis Plan VTE Prophylaxis will be ordered: Yes
[2022-07-08 15:02] LABS: Troponin I High Sensitivity 111.2 pg/ml (0-20)
--- NOTE | 2022-07-08 15:18 | Cardiac Catheterization ---
ACC Data: Sign Builder Supervisor Cardiac Status Clinical evaluation leading to the procedure CAD Presenation: STEMI Anginal Classification: CCS IV Heart Failure: No Cardiogenic Shock within 24 Hours: No Cardiac Arrest within 24 Hours: No Imaging Studies Past 6 Months: No Stress Studies Past 6 Months: No STEMI OR Non-STEMI Symptom Onset Date: 07/08/22 Symptom Onset Time: 10:00 Thrombolytics: No Coronary Anatomy Dominant: Right Left Main (% Stenosis): Normal (Mild diffuse) LAD (% Stenosis): Proximal (95%) and Distal (40%) D1 (% Stenosis): Normal Circumflex (% Stenosis): Normal OM1 (% Stenosis): Normal OM2 (% Stenosis): Normal L PL1 (% Stenosis): Normal RCA (% Stenosis): Normal (Scattered mild) R PDA (% Stenosis): Normal R PL1 (% Stenosis): Normal Diagnostic Physicians Name: Jay Castillo MD, PhD Closure Device Percutaneous Entry Location: Radial Closure Device: Radial Band Recommendations: PCI without planned CABG PCI Indication: PCI for STEMI - Unstable First Noted: First EKG Lesion Segment Name: Proximal LAD Culprit Artery: Yes Stenosis Prior to Rx (%): 95 Chronic Total Occlusion: No Pre-Procedure CLARENCE Flow: 3 Previously Treated Lesion: No Lesion Complexity: Non-High/Non-C Lesion Length (mm): 14 Thrombus Present: No Bifurcation Lesion: No Guidewire Across Lesion: Yes Intraprocedure Events Significant Disection: No Perforation: No Cardiac Cath Procedure Full Procedure Date July 08, 2022 Pre-Procedure Diagnosis Pre-Procedure Diagnosis: STEMI AUC Score AUC Score: 09 Post-Procedure Diagnosis Post-Procedure Diagnosis: Severe CAD and Successful PCI Procedure(s) Performed Procedure(s) Performed: Coronary Angiography, Left Heart Cath and Drug Eluting Stent [employer] Flake Miller Jay Castillo MD, PhD Estimated Blood Loss Estimated Blood Loss: 10 mL Medication(s) Medication(s): Fentanyl, Heparin, Lidocaine 1%, Metoprolol, Nicardipine, Nitroglycerin and Versed Summary of Findings Brief description: Patient was brought to the cardiac catheterization suite where he was shaved and prepped in a sterile fashion. Sedated using IV Versed and fentanyl. Soft tissues of the right wrist were anesthetized using 2 mL of 1% Xylocaine. The right radial artery was accessed using a modified Seldinger technique and a 6 Martiniquais radial artery glide sheath was placed. Patient was provided anticoagulation with IV heparin and antispasmodics including nicardipine and nitroglycerin. All catheters were advanced and exchanged over a 0.035 J-tip wire. Left coronary angiography was performed in orthogonal views with a 6 Martiniquais EBU 3.0 guide catheter. Right coronary angiography and left heart cath were performed with a 5 Martiniquais JR4 diagnostic catheter. (Catheter triggered VT therefore hemodynamics not measured as catheter was quickly retracted). PCI was undertaken using the EBU guide catheter and a BMW universal guidewire. Guidewire was advanced distally in the LAD. The lesion was predilated with a 2.5 x 12 mm trek balloon multiple times up to 14 sherry. A 3.0 x 18 mm Webster frontier drug-eluting stent was implanted at 13 sherry across the lesion. Stent balloon was removed. The stent was postdilated in the midsegment using a 3.25 x 8 mm NC trek balloon inflated to 12 sherry. The proximal portion of the stent was then postdilated with the same balloon to 18 sherry. Balloon was removed. Final angiography was performed. The BMW universal guidewire was then removed. Guide catheter was removed over the J-wire. Radial artery sheath was removed. Hemostasis was obtained using the TR band. Patient was hemodynamically stable and asymptomatic. He was then transported to the ICU for further work-up and management. This ended the case. Coronary angiography: INM-wunai-vjqmimn vessel trifurcating into LAD, ramus, and circumflex. It has diffuse mild disease. LAD- Large caliber vessel whose first major branch is a large septal trunk with multiple branches. The proximal LAD has an eccentric 95% stenosis which is the culprit. After the septal the mid segment of the LAD is large and then becomes essentially bifid. It splits into a large diagonal branch which itself has 4 major branches. There is no disease in this branch. The second portion of the bifurcation is the distal LAD. Just after the bifurcation and in the earliest portion of that segment there is diffuse disease maximum stenosis of about 40%. The LAD continues where it becomes apical and divides there. Ramus- Medium to large caliber vessel which has an ostial 40 to 50% narrowing. There is no more than mild luminal irregularities in the remainder of the ramus. LCx-large caliber and nondominant. Travels in the AV groove where the proximal segment is large and has no disease. It then gives a small to medium caliber undiseased OM1. Mid segment has mild luminal irregularities and provides atrial branches. It then gives a large caliber branching OM 2 which has no disease. The distal AV groove circumflex becomes medium in size and tapers as it termi nates distally and a small posterolateral branch. There is no disease. RCA- This is a large caliber and dominant vessel. It has mild scattered disease. It bifurcates into a large and long PDA without disease. The posterolateral branch is also large with multiple branches and has no disease. PCI: 0% residual stenosis post PCI No evidence of dissection or perforation post PCI CLARENCE-3 flow post PCI Summary: 1. Severe proximal LAD stenosis which is the culprit for acute anterior ST elevation [place]. 2. Mild nonocclusive coronary disease in the other coronary arteries. 3. Successful PCI with implantation of a drug-eluting stent to the LAD. 4. No evidence of complication post PCI 5. Patient will be admitted to the intensive care unit for further work-up and management. 6. Initiate guideline directed medical therapy including low-dose aspirin, high intensity statin therapy, beta-patricia, plus or minus GABRIEL inhibitor/ARB 7. Dual antiplatelet therapy with aspirin 81 mg daily and Brilinta 90 mg p.o. twice daily. Hemodynamics Rest Ao:: 164/104 mmHg Final Ao: 137/89 mmHg LV: Not measured Recommendations Recommendations: PCI without planned CABG Radiation Exposure (mGy) 604 mGy, fluoroscopy time 7.9 minutes Contrast (mls) 110 mL Anesthesia 2 mg IV Versed, 75 mcg IV fentanyl, start time 1357, end time 1425 Procedural Complication(s) None Disposition ICU I attest to the content of the Intraoperative Record and any orders documented therein. Any exceptions are noted below. [facility] Card Cath Procedure Codes Cardiac Catheterization Procedure 1: Cardiovascular Cath Procedures: 48608 Coronaries and LHC (+/-LV) Stenting Procedure 1: Cardiovascular Stent Procedures: 08804 Perc transluminal revascularization of acute sub/total occl, aMI (LAD) PG Care Time/CCT Total # of Minutes Spent Total Time Spent with Patient: Total time spent is greater than 50% in coordination of care (as documented) at patient's floor/unit and/or counseling patient:
--- NOTE | 2022-07-08 15:32 | Cardiology Consultation ---
Date of Consultation July 08, 2022 Assessment & Plan (1) Benign essential hypertension: Blood pressure was very elevated. It is now normalized. He did receive beta- patricia in the [employer]. It appears that he is supposed to be taking diltiazem at home although compliance is very questionable. For now, he will be on metoprolol tartrate 25 mg p.o. twice daily. This may be adjusted pending his response to that medication as well as findings on echocardiogram. (2) Atherogenic dyslipidemia: Patient is high risk. High intensity statin therapy is recommended. We are obtaining a fasting lipid panel. Target LDL reduction will be greater than or equal to 50% of untreated baseline LDL. Beginning a atorvastatin 40 mg daily. (3) ST elevation myocardial infarction (STEMI): Severe lesion in the proximal LAD which I suspect was even worse with clot before we gave him medications. On arrival to the [employer] his chest pain had already significantly dissipated after medication. Coronary angiography did not reveal significant residual thrombus in the LAD. He got a single drug-eluting stent to the LAD with good angiographic results. The remainder of his coronaries have no more than mild disease. He will be on dual antiplatelet therapy for at least 1 year with recommendation of up to 2 years therapy. We are initiating aspirin 81 mg daily and Brilinta 90 mg p.o. twice daily. He will be provided with a card for the Brilinta. We can also change him to Plavix if needed for affordability or if he has intolerance to Brilinta. His guideline directed medical therapy includes aspirin 81 mg daily, metoprolol tartrate 25 mg p.o. twice daily, and a atorvastatin 40 mg daily. We will adjust as indicated. We will also obtain an echocardiogram to evaluate LVEF, chamber sizes, and valves. (4) Alcohol use disorder: Patient will certainly need DT prophylaxis while hospitalized. Protocol per hospitalist. Plan ICU for 24 hours per standard of care. Then, stepdown unit with anticipated discharge within 48-72 hours. History of Present Illness Reason for Consultation: ST elevation HI Attending Physician: Ana Molina MD History of Present Illness 52-year-old smoker who does not regularly follow with a primary care provider presented after developing sudden onset severe bilateral arm pain which then developed into chest pressure and tightness beginning at around 10:00 this morning while he was having his morning coffee. He became diaphoretic and short of breath. Symptoms did not resolve and he decided to seek medical attention. EMS was called and they obtained a tracing on the monitor which demonstrated borderline ST elevations in the anterior leads V1, V2 and V3. Patient was tachycardic and there were no reciprocal ischemic changes. In the emergency department he had subsequent EKG which demonstrated large ST elevations in the anterior lateral leads and reciprocal ST depressions. A "heart alert" was then called in on my arrival he continued with severe chest discomfort. He had received aspirin and nitroglycerin. We quickly discussed my recommendation for emergent cardiac catheterization to which she agreed. He was then provided 180 mg of p.o. Brilinta, 5000 units IV heparin followed by IV heparin drip. He arrived in the cardiac catheterization suite and underwent diagnostic cardiac cath from the right radial approach. This demonstrated severe proximal LAD st enosis which was the culprit for his symptoms. He then had a PCI to the proximal LAD with implantation of a drug-eluting stent. Postprocedure he had no chest pain. He has subsequently been admitted to the intensive care unit for further work-up and management. Patient did admit to me during the post PCI time that he smokes a pack a day and drinks 6-8 beers daily. Allergies Allergy/AdvReac Type Severity Reaction Status Date / Time No Known Allergies Allergy Verified 12/06/21 01:23 Home Medications Medication Instructions Recorded Confirmed Type albuterol sulfate 90 mcg/actuation 2 puff inhalation Q4H PRN 01/13/18 12/06/21 History aerosol inhaler (Ventolin HFA) Shortness Of Breath Or Wheezing atorvastatin 10 mg tablet 0 mg PO DAILY 12/06/21 12/06/21 History cyclobenzaprine 10 mg tablet 10 mg PO TID PRN muscle spasm #20 12/06/21 Rx tabs diltiazem HCl 120 mg capsule,24 0 mg PO DAILY 12/06/21 12/06/21 History hr,extended release ibuprofen 800 mg tablet 800 mg PO TID PRN pain #20 tabs 12/06/21 Rx Patient History Medical History (Updated 07/08/22 @ 15:26 by Jay Castillo MD, PhD) COPD (chronic obstructive pulmonary disease) Heart disease Surgical History History of cardiac radiofrequency ablation Social History Smoking Status: Current every day smoker Tobacco Type: Cigarettes Cigarettes Per Day: Pack and 1/4; Second Hand Exposure: Yes; Do You Dip or Chew Tobacco: No; Preferred Language: Indian marital status: current occupational status: unemployed Feels Safe at Home: Yes Review of Systems Review of Systems: Negative except as per HPI Physical Exam Constitutional: WD/WN, vitals as above Eyes: Extraocular muscles intact. Sclera anicteric. ENMT: Oral mucosa is pink, moist, and intact. Dentition is poor. Neck: No JVD appreciated Respiratory: Clear to auscultation bilaterally. No wheezing, rhonchi, or rales. Fair air movement. Cardiovascular: Regular rhythm with a tachycardic rate. S4 gallop. Do not appreciate any rubs or murmurs. Musculoskeletal: no cyanosis or clubbing, extremities motor strength 5/5 Neurologic: Cognition is intact. Speech is fluent. No focal deficits. Moves 4 extremities voluntarily. Psychiatric: A+Ox3, euthymic affect Results & Data Vital Signs (Past 12 Hours) Vital Signs Temp Pulse Pulse Resp BP BP Pulse Ox 07/08/22 14:51 36.5 C 109 H 20 130/85 96 07/08/22 13:40 130 H 16 124/94 98 07/08/22 13:41 129 H 16 124/94 98 07/08/22 13:35 122 H 16 134/90 98 07/08/22 13:30 122 H 16 105/75 98 07/08/22 13:28 97 07/08/22 13:24 128 H 16 128/89 99 07/08/22 13:22 07/08/22 13:06 123 H 07/08/22 13:09 07/08/22 13:02 36.3 C L 122 H 19 135/106 H 99 O2 Del Method O2 Flow Rate 07/08/22 14:51 Room Air 07/08/22 13:40 07/08/22 13:41 Nasal Cannula 2 07/08/22 13:35 Nasal Cannula 2 07/08/22 13:30 Nasal Cannula 2 07/08/22 13:28 Nasal Cannula 2 07/08/22 13:24 Room Air 07/08/22 13:22 Nasal Cannula 07/08/22 13:06 07/08/22 13:09 Room Air 07/08/22 13:02 Room Air PG Care Time/CCT Total # of Minutes Spent Total Time Spent with Patient: Total time spent is greater than 50% in coordination of care (as documented) at patient's floor/unit and/or counseling patient: I spent 74 minutes of critical care time in the initial evaluation/examination of the patient, review of the records, formulation and implementation of a plan of care, discussion with the care team, discussion with family, and discussion with the patient. Also including documentation of all of the preceding. This time is exclusive of the time spent for the procedure. Coding Level of Care Code 23854 CRITICAL CARE 1ST 30-74M Diagnoses Benign essential hypertension I10 Atherogenic dyslipidemia E78.5 ST elevation myocardial infarction (STEMI) I21.3 Alcohol use disorder F10.90
[2022-07-08] MEDS ORDERED: LORazepam 2 MG/1 ML VIAL IV PRN (15:41)
--- NOTE | 2022-07-08 15:43 | Critical Care Consultation ---
Date of Consultation July 08, 2022 Assessment & Plan (1) ST elevation myocardial infarction (STEMI): (2) Benign essential hypertension: (3) Alcohol use disorder: (4) COPD (chronic obstructive pulmonary disease): (5) Coronary artery disease: (6) Current smoker: Plan Chest x-ray 07/08/2022 personally reviewed: Portable film, hyperinflated, bilateral costophrenic and cardiophrenic tigecycline, no clear lung infiltrate appreciated -- STEMI S/p 1 KG in LAD TSH within normal limit Trend troponin and EKG Continue with dual antiplatelet therapy, beta-patricia, statin Follow-up echo Post stent EKG shows improvement in the ST elevation on the lateral leads, mild ST depression in lead to 3 and aVF still persist -- COPD On Trelegy inhaler at home Uses it every other day because it causes him diarrhea I will change it to Anoro inhaler on a daily basis PFT as an outpatient -- Active smoker Advised to quit --Heavy alcohol drinker We will put the patient on CIWA protocol Thiamine and folic acid on a daily basis --Prophylaxis VTE: IPC GI: Pantoprazole Lines: Peripheral Diet: Cardiac Plan: Continue with beta-blockers, dual antiplatelet therapy, statin Monitor blood pressure We will consider addition of GABRIEL/ARB gradually if blood pressure permits Please note the above document was generated using voice recognition software. It may contain grammatical, syntax or spelling errors.Any formal questions or concerns about the content, text or information contained within the body of this dictation should be directly addressed to the provider for clarification. History of Present Illness Attending Physician: Ana Molina MD History of Present Illness 52-year-old male presented to the hospital with chest pain Past medical history: COPD, hypertension Patient was taken to the cardiac Dietetic Aide for STEMI Initial EKG showed ST elevation on lateral leads with ST depression in V2 3 and aVF At the time of examinations patient's daughter was in the room along with her boyfriend. Patient had a feeling of chest tightness and pressure around 10 AM in the morning, he was diaphoretic and short of breath at that time. Patient was not in any acute distress. His systolic blood pressure was in the 140s, heart rate in the low 100s. Saturating 97% on room air Denied any chest pain. No shortness of breath, denied any chest heaviness. Patient denies any visual, auditory or tactile hallucination. On asking whether he is feeling that he is withdrawing he denies. He has never been admitted for alcohol withdrawal as per him Social history: > [id number] smoking history, 4-8 beers on a daily basis. Last beer was yesterday. 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 No history of lung cancer in the family Allergies Allergy/AdvReac Type Severity Reaction Status Date / Time No Known Allergies Allergy Verified 12/06/21 01:23 Home Medications Medication Instructions Recorded Confirmed Type albuterol sulfate 90 mcg/actuation 2 puff inhalation Q4H PRN 01/13/18 12/06/21 History aerosol inhaler (Ventolin HFA) Shortness Of Breath Or Wheezing atorvastatin 10 mg tablet 0 mg PO DAILY 12/06/21 12/06/21 History cyclobenzaprine 10 mg tablet 10 mg PO TID PRN muscle spasm #20 12/06/21 Rx tabs diltiazem HCl 120 mg capsule,24 0 mg PO DAILY 12/06/21 12/06/21 History hr,extended release ibuprofen 800 mg tablet 800 mg PO TID PRN pain #20 tabs 12/06/21 Rx Patient History Medical History (Updated 07/08/22 @ 16:11 by Piter Felder MD, [facility]) COPD (chronic obstructive pulmonary disease) Heart disease Surgical History History of cardiac radiofrequency ablation Social History Smoking Status: Current every day smoker Tobacco Type: Cigarettes Cigarettes Per Day: Pack and 1/4; Second Hand Exposure: Yes; Do You Dip or Chew Tobacco: No; Hx Alcohol Use: Yes Alcohol type: beer Hx Substance Use: No Preferred Language: Korean Communication Ability: Effective Hair Blender Required: No Beliefs That Will Affect Care: None marital status: Current Living Situation: Significant Other current occupational status: unemployed Feels Safe at Home: Yes Assistive Devices: None Review of Systems Review of Systems: All systems reviewed & are unremarkable except as noted in HPI & below Physical Exam Physical Exam: Constitutional: No acute distress HEENT: EOMI, PERRLA Respiratory system: Good air entry bilaterally, no wheeze, no rhonchi, no crackles CVS: S1-S2 positive, no murmurs or gallops Abdomen: Soft, nontender, nondistended, positive bowel sounds x4 Extremities: +2 pulses bilaterally radialis/ dorsalis pedis, no cyanosis, no edema Neuro: Awake alert oriented x3 Psych: Normal mood and affect G/U: No Lee Skin: no rashes, warm and dry Lymphatic: no cervical or axillary lymphadenopathy Results & Data Results & Data Vital Signs (Past 12 Hours) Vital Signs Temp Pulse Pulse Resp BP BP Pulse Ox 07/08/22 14:50 07/08/22 14:50 36.5 C 07/08/22 14:51 36.5 C 109 H 20 130/85 96 07/08/22 13:40 130 H 16 124/94 98 07/08/22 13:41 129 H 16 124/94 98 07/08/22 13:35 122 H 16 134/90 98 07/08/22 13:30 122 H 16 105/75 98 07/08/22 13:28 97 07/08/22 13:24 128 H 16 128/89 99 07/08/22 13:22 07/08/22 13:06 123 H 07/08/22 13:09 07/08/22 13:02 36.3 C L 122 H 19 135/106 H 99 O2 Del Method O2 Flow Rate 07/08/22 14:50 Room Air 07/08/22 14:50 07/08/22 14:51 Room Air 07/08/22 13:40 07/08/22 13:41 Nasal Cannula 2 07/08/22 13:35 Nasal Cannula 2 07/08/22 13:30 Nasal Cannula 2 07/08/22 13:28 Nasal Cannula 2 07/08/22 13:24 Room Air 07/08/22 13:22 Nasal Cannula 07/08/22 13:06 07/08/22 13:09 Room Air 07/08/22 13:02 Room Air Laboratory Results 07/08/22 13:21 07/08/22 13:21 Coding Level of Care Code 76880 IN/OBS CONSULT LVL 4,60M Diagnoses ST elevation myocardial infarction (STEMI) I21.3 Benign essential hypertension I10 Alcohol use disorder F10.90 COPD (chronic obstructive pulmonary disease) J44.9 Coronary artery disease I25.10 Current smoker F17.200
[2022-07-08 15:50] LABS: Albumin Level 4.5 gm/dl (3.4-5.0); Bilirubin Direct 0.1 mg/dl (0-0.2); Bilirubin,Total 0.5 mg/dl (0.2-1.0)
[2022-07-08 15:56] LABS: Chol HDL Ratio 3.5 (0-5); Total Protein 8.3 gm/dl (6.0-8.3)
[2022-07-08] MEDS: FOLIC ACID 1 MG in SYRINGE 9.8 ML IV SCH (16:07)
[2022-07-08] MEDS: ATORVASTATIN 40 MG TAB PO SCH (16:07)
[2022-07-08] MEDS ORDERED: NICOTINE 7 MG/24 HR TDSY TD SCH (16:15)
[2022-07-08] MEDS ORDERED: UMECLIDINIUM BROMIDE 62.5MCG/BLISTER 7 PUFFS/INHALER INH SCH (16:15)
[2022-07-08] MEDS: THIAMINE HCL 100 MG TAB PO SCH (16:17)
[2022-07-08] MEDS: PANTOprazole 40 MG TAB PO SCH (16:17)
[2022-07-08 16:21] LABS: Magnesium 2.1 mg/dl (1.7-2.4)
[2022-07-08 16:31] LABS: Phosphorus 1.3 mg/dl (2.5-4.9)
[2022-07-08] MEDS ORDERED: SODIUM PHOSPHATE 3 MMOL/1 ML INFUSION IV STA (16:35)
[2022-07-08] MEDS ORDERED: MAGNESIUM SULFATE / D5W 1 GM/100 ML BAG IV ONE (16:35)
[2022-07-08] MEDS: NICOTINE 14 MG/24 HR PATCH TD SCH (16:38)
[2022-07-08] MEDS: UMECLIDINIUM/VILANTEROL 62.5/25MCG 7 PUFFS/INHALER INH SCH (16:38)
[2022-07-08] MEDS ORDERED: SODIUM PHOSPHATE 15 MMOL in SODIUM CHLORIDE 0.9% 250 ML IV ONE (16:45)
[2022-07-08] MEDS: ICU ELECTROLYTE REPLACEMENT PROTOCOL SCH (17:50)
[2022-07-08] MEDS: TICAGRELOR 90 MG TAB PO SCH (20:11)
[2022-07-08] MEDS: METOPROLOL TARTRATE 25 MG TAB PO SCH (20:11)
[2022-07-09 05:17] LABS: Basophils # (auto) 0.07 K/uL (0-0.2); Basophils % (auto) 0.7 %; Eosinophils # (auto) 0.24 K/uL (0-0.50); Eosinophils % (auto) 2.3 %; Hematocrit (blood only) 46.3 % (42.0-52.0); Hemoglobin 16.2 g/dl (14.0-18.0); Immature Granulocytes # (auto) 0.04 K/uL (0.01-0.20); Immature Granulocytes % (auto) 0.4 %; Lymphocytes # (auto) 2.88 K/uL (1.2-3.4); Lymphocytes % (auto) 28.1 %; Mean Corpuscular Hemoglobin 30.6 pg (25.0-34.0); Mean Corpuscular Volume 87.5 fL (80.0-100.0); Mean Platelet Volume 10.3 fL (9.4-12.4); Monocytes # (auto) 0.55 K/uL (0.11-0.59); Monocytes % (auto) 5.4 %; Neutrophils # (auto) 6.47 K/uL (1.40-6.50); Neutrophils % (auto) 63.1 %; Platelet Count 271 K/uL (130-400); RDW Coefficient of Variation 13.2 % (11.5-14.5); RDW Standard Deviation 41.9 fL (36.4-46.3); Red Blood Count 5.29 M/uL (4.70-6.10); White Blood Count 10.25 K/ul (4.8-10.8)
[2022-07-09 05:31] LABS: Calcium 8.3 mg/dl (8.6-10.3); Chol HDL Ratio 3.9 (0-5); Creatinine Clr Calc Pharmacy 105.5 ml/min; Est GFR (African American) 117.6 ml/min; Est GFR (Non-African American) 101.5 ml/min; Magnesium 2.2 mg/dl (1.7-2.4); Phosphorus 3.5 mg/dl (2.5-4.9)
[2022-07-09] MEDS: ICU ELECTROLYTE REPLACEMENT PROTOCOL SCH (05:49)
--- NOTE | 2022-07-09 07:55 | Critical Care Progress Note ---
Date of Service July 09, 2022 Assessment & Plan (1) ST elevation myocardial infarction (STEMI): (2) Benign essential hypertension: (3) Alcohol use disorder: (4) COPD (chronic obstructive pulmonary disease): (5) Coronary artery disease: (6) Current smoker: Plan Chest x-ray 07/08/2022 personally reviewed: Portable film, hyperinflated, bilateral costophrenic and cardiophrenic tigecycline, no clear lung infiltrate appreciated -- STEMI S/p 1 KG in LAD TSH within normal limit Trend troponin and EKG Continue with dual antiplatelet therapy, beta-patricia, statin Follow-up echo Post stent EKG shows improvement in the ST elevation on the lateral leads, mild ST depression in lead to 3 and aVF still persist -- COPD On Trelegy inhaler at home Uses it every other day because it causes him diarrhea I will change it to Anoro inhaler on a daily basis PFT as an outpatient -- Active smoker Advised to quit --Heavy alcohol drinker We will put the patient on CIWA protocol Thiamine and folic acid on a daily basis --Prophylaxis VTE: IPC GI: Pantoprazole Lines: Peripheral Diet: Cardiac Plan: In/out: Positive 255, urine output 2650 Continue with beta-blockers, statin, DAPT Add GABRIEL inhibitor/ARB when feasible 2D echo ordered to be done today Patient tolerated Anoro inhaler better than Trelegy. Would recommend the patient to be discharged on Anoro inhaler once a day in place of Trelegy Outpatient pulmonary follow-up Patient hemodynamically stable to be downgraded to [facility] telemetry floor Please note the above document was generated using voice recognition software. It may contain grammatical, syntax or spelling errors.Any formal questions or concerns about the content, text or information contained within the body of this dictation should be directly addressed to the provider for clarification. Admission and Anticipated Discharge Date Admission Date: July 08, 2022 Subjective Patient seen and examined at bedside. No acute distress, no adverse events overnight Denies any chest pain, no chest tightness, no heaviness Was saturating 95% on room air No shortness of breath. Fair appetite, no nausea vomiting Denies any visual, tactile or auditory hallucinations Review of Systems Review of Systems: All systems reviewed & are unremarkable except as noted in Subjective Physical Exam Physical Exam: Constitutional: No acute distress HEENT: EOMI, PERRLA Respiratory system: Good air entry bilaterally, no wheeze, no rhonchi, no crackles CVS: S1-S2 positive, no murmurs or gallops Abdomen: Soft, nontender, nondistended, positive bowel sounds x4 Extremities: +2 pulses bilaterally radialis/ dorsalis pedis, no cyanosis, no edema Neuro: Awake alert oriented x3 Psych: Normal mood and affect G/U: No Lee Skin: no rashes, warm and dry Lymphatic: no cervical or axillary lymphadenopathy Results & Data Results & Data Vital Signs (Past 12 Hours) Vital Signs Temp Pulse Resp BP Pulse Ox O2 Del Method 07/09/22 07:00 85 21 114/97 94 Room Air 07/09/22 07:31 36.9 C 07/09/22 07:30 72 07/09/22 06:00 72 18 100/72 94 07/09/22 00:00 36.9 C 07/09/22 05:00 78 15 95 07/09/22 05:00 108/72 07/09/22 04:00 36.9 C 07/09/22 04:00 75 18 95 07/09/22 04:00 103/72 07/09/22 03:00 78 22 95 07/09/22 03:00 87/60 L 07/09/22 02:00 78 17 97 07/09/22 02:00 98/68 L 07/09/22 01:00 75 19 96 07/09/22 01:00 111/82 07/09/22 00:00 84 23 96 07/09/22 00:00 100/65 07/08/22 23:00 82 20 94 07/08/22 23:00 104/75 07/08/22 22:49 84 07/08/22 22:00 88 28 H 97 07/08/22 22:00 133/90 07/08/22 21:00 92 H 25 H 96 07/08/22 21:00 106/68 07/08/22 20:45 100 H 16 96 07/08/22 20:30 100 H 22 96 07/08/22 20:15 102 H 22 98 07/08/22 20:00 105 H 16 96 07/08/22 20:00 115/85 Laboratory Results 07/09/22 04:26 07/09/22 04:26 Coding Level of Care Code 03761 SUB INP/OBS CARE 235MIN Diagnoses ST elevation myocardial infarction (STEMI) I21.3 Benign essential hypertension I10 Alcohol use disorder F10.90 COPD (chronic obstructive pulmonary disease) J44.9 Coronary artery disease I25.10 Current smoker F17.200
--- NOTE | 2022-07-09 08:21 | Electrocardiogram Report ---
Test Reason : Blood Pressure : / mmHG Vent. Rate : 107 BPM Atrial Rate : 107 BPM P-R Int : 120 ms QRS Dur : 080 ms QT Int : 360 ms P-R-T Axes : 073 048 089 degrees QTc Int : 480 ms Poor data quality, interpretation may be adversely affected Sinus tachycardia Left atrial enlargement Nonspecific ST and T wave abnormality Abnormal ECG When compared with ECG of 08-JUL-2022 13:31, No significant change was found Confirmed by Nelson Mcrae ([id number]) on 07/09/2022 8:21:39 AM Referred By: REFERRED SELF Confirmed By:Nelson Mcrae
--- NOTE | 2022-07-09 08:37 | Electrocardiogram Report ---
Test Reason : Blood Pressure : / mmHG Vent. Rate : 134 BPM Atrial Rate : 134 BPM P-R Int : 112 ms QRS Dur : 074 ms QT Int : 302 ms P-R-T Axes : 072 014 079 degrees QTc Int : 450 ms Age and gender specific ECG analysis Sinus tachycardia with occasional Premature ventricular complexes Acute Anteroseptal infarct ST depression in Inferior leads Abnormal ECG When compared with ECG of 11-DEC-2019 14:29, ST elevation in Anteroseptal leads now present Confirmed by Nelson Mcrae ([id number]) on 07/09/2022 8:37:00 AM Referred By: Confirmed By:Nelson Mcrae
--- NOTE | 2022-07-09 08:38 | Electrocardiogram Report ---
Test Reason : Blood Pressure : / mmHG Vent. Rate : 127 BPM Atrial Rate : 127 BPM P-R Int : 116 ms QRS Dur : 078 ms QT Int : 330 ms P-R-T Axes : 070 028 080 degrees QTc Int : [address] depression in Inferior leads Abnormal ECG When compared with ECG of 08-JUL-2022 13:00, Premature ventricular complexes are no longer Present ST no longer elevated in Anteroseptal leads Confirmed by Nelson Mcrae ([id number]) on 07/09/2022 8:37:41 AM Referred By: Confirmed By:Nelson Mcrae
--- NOTE | 2022-07-09 09:02 | Cardiology Consultation ---
Date of Consultation July 09, 2022 Assessment & Plan (1) Current smoker: (2) Coronary artery disease: (3) Atherogenic dyslipidemia: (4) Benign essential hypertension: (5) ST elevation myocardial infarction (STEMI): (6) Alcohol use disorder: Plan Acute anterior STEMI, July 08, 2022, status post PCI of the proximal LAD with a 3.0 x 18 mm [place] drug-eluting stent Mild nonocclusive CAD in other coronary arteries Hypertension Dyslipidemia Chronic tobacco use Chronic alcohol use RECOMMENDATIONS/PLAN: Await resting echocardiography. Continue guideline directed medical therapy which was discussed in detail with the patient. Continue dual antiplatelet therapy with aspirin and Brilinta for at least one year and preferably longer. Switch to Clopidogrel if cost is an issue with Brilinta or patient is intolerant to Brilinta (increased risk for respiratory effects given history of COPD Utilize high intensity statin therapy, atorvastatin 40 mg/day Continue beta-patricia therapy as prescribed, switching lopressor to Toprol XL if EF reduced on TTE. No GABRIEL/ARB for now, Re: mild asymptomatic hypotension, to be reconsidered as an outpatient. Tobacco cessation Reduction in alcohol intake Cardiac Rehabilitation. Supervising Physician Co-Signing Physician Notes I have reviewed the advance practitioner documentation and agree. I saw and evaluated the patient on the date of service referenced in the note and have performed a medically appropriate history and or exam. I reviewed the patient's echocardiogram and he has hypokinesis of the LAD distribution with reduced left ventricular function. Currently on metoprolol with marginal blood pressures. No LV thrombus on the echocardiogram. Patient should remain on telemetry for an additional 24 hours. Reassess tomorrow. History of Present Illness Reason for Consultation: SEMI, status post cath Requesting Physician: Tracy Attending Physician: Catarina History of Present Illness Mr. Ana Daniel is a 52-year-old male who presented to [facility] ER on July 08, 2022 after experiencing sudden onset resting severe bilateral arm pain followed shortly thereafter by chest discomfort associated with shortness of breath and diaphoresis. EKG on presentation revealed ST segment elevation in anterolateral leads. The patient was taken to the cardiac catheterization laboratory by Dr. Castillo, angiography revealing a severe proximal LAD lesion as the culprit for the acute anterior STEMI. Intervention was with a 3.0 x 18 mm Onxy [place] drug eluting stent with good result. Mild nonocclusive coronary artery disease observed in other vessels. The patient was admitted to the ICU for further work-up and management postintervention. Continuous cafeteria monitor without arrhythmia. Guideline directed medical therapy has been initiated with dual antiplatelet therapy (aspirin, Brilinta), high intensity statin therapy, and beta-patricia therapy. GABRIEL/ARB has not been initiated due to intermittent hypotension. Resting echocardiography is pending. No current complaints or concerns other than being anxious for discharge. No further chest pain or discomfort. No shortness of breath. No orthopnea or PND. No peripheral edema. No lightheadedness or dizziness. No near syncope. No fevers or chills. Past Medical and Surgical History: COPD Chronic tobacco abuse Chronic alcohol use Remote history of PSVT ablation Elevated PSA, history of gross hematuria, BPH Carotid plaque Family History: Father three years ago with COPD. Mother with cancer, unknown primary. Sibling without cardiac issue. Social History: Smoker, 1+ pack per day. Alcohol: 8 beers per day. No illegal drug use. 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 Lives in [place], [place] with his . Allergies Allergy/AdvReac Type Severity Reaction Status Date / Time No Known Allergies Allergy Verified 12/06/21 01:23 Home Medications Medication Instructions Recorded Confirmed Type albuterol sulfate 90 mcg/actuation 2 puff inhalation Q4H PRN 01/13/18 07/08/22 History aerosol inhaler (Ventolin HFA) Shortness Of Breath Or Wheezing atorvastatin 10 mg tablet 0 mg PO DAILY 12/06/21 07/08/22 History cyclobenzaprine 10 mg tablet 10 mg PO TID PRN muscle spasm #20 12/06/21 07/08/22 Rx tabs lorazepam 0 mg PO DAILY 07/08/22 07/08/22 History metoprolol tartrate 25 mg tablet 25 mg PO DAILY 07/08/22 07/08/22 History Patient History Medical History COPD (chronic obstructive pulmonary disease) Heart disease Surgical History History of cardiac radiofrequency ablation Social History Smoking Status: Current every day smoker Tobacco Type: Cigarettes Cigarettes Per Day: Pack and 1/4; Second Hand Exposure: Yes; Do You Dip or Chew Tobacco: No; Hx Alcohol Use: Yes Alcohol type: beer Hx Substance Use: No Preferred Language: Mozambican Communication Ability: Effective Alignment Specialist Required: No Beliefs That Will Affect Care: None marital status: Current Living Situation: Significant Other current occupational status: unemployed Feels Safe at Home: Yes Assistive Devices: None Review of Systems Review of Systems: Complete Review of Systems: Constitutional: No change in weight. No fevers, sweats, or chills. HEENT: No amaurosis fugax. Pulmonary: COPD. Chronic tobacco use. No history of PE. Cardiac: Remote history of SVT ablation. GI/Abd: History of colonic polyp. Occasional heartburn. No dysphagia. No melana or hematochezia. Denies liver or kidney problems. Vascular: No history of AAA. No claudication. Hematologic: No history of coagulation disorder or transfusion. Musculoskeletal: Arthritis. Skin: No rash. Neurologic: No history of seizure. No history of TIA/CVA. Male : BPH. Elevated PSA. History of gross hematuria. Followed by urology. Endocrine: No DM or thyroid problems. Complete Review of Systems is as stated above, negative, noncontributory Physical Exam Physical Exam: General: A&Ox3. NAD. HENT: Normocephalic. Atraumatic. Eyes: PER. Conjunctiva pink, sclera clear. Neck: No carotid bruits. No JVD. Heart: RRR, 86 bpm. No murmur. No rub. No gallop. PMI is nondisplaced. Lungs: Diminished. Decreased. No wheeze. Abdomen: +BS. Soft. Nontender. No masses or organomegaly. Extremities: Right radial artery dressing clean and dry, not removed. No lower extremity peripheral edema. No clubbing. No cyanosis. Posterior tibial pulses are 2/4 bilaterally. Limited neurological examination is without focal deficits. Results & Data Vital Signs (Past 12 Hours) Vital Signs Temp Pulse Resp BP Pulse Ox O2 Del Method 07/09/22 08:00 72 07/09/22 07:00 85 21 114/97 94 Room Air 07/09/22 07:31 36.9 C 07/09/22 07:30 72 07/09/22 06:00 72 18 100/72 94 07/09/22 00:00 36.9 C 07/09/22 05:00 78 15 95 07/09/22 05:00 108/72 07/09/22 04:00 36.9 C 07/09/22 04:00 75 18 95 07/09/22 04:00 103/72 07/09/22 03:00 78 22 95 07/09/22 03:00 87/60 L 07/09/22 02:00 78 17 97 07/09/22 02:00 98/68 L 07/09/22 01:00 75 19 96 07/09/22 01:00 111/82 07/09/22 00:00 84 23 96 07/09/22 00:00 100/65 07/08/22 23:00 82 20 94 07/08/22 23:00 104/75 07/08/22 22:49 84 07/08/22 22:00 88 28 H 97 07/08/22 22:00 133/90 Laboratory Results Cardiac Enzymes 07/08/22 07/08/22 07/08/22 Range/Units 13:21 13:21 14:41 AST 15 16 (13-39) U/L Troponin I High Sens 111.2 H* (0-20) pg/ml B-Natriuretic Peptide 36 (0-100) pg/ml Coagulation 07/08/22 07/08/22 Range/Units 13:21 13:21 PT 10.3 (9.0-12.0) Seconds APTT 26.9 (21.0-31.0) Seconds B-Natriuretic Peptide 36 (0-100) pg/ml Lipids 07/08/22 07/09/22 Range/Units 14:41 04:26 Triglycerides 83 128 (0-150) mg/dl Cholesterol 220 H 185 (0-200) mg/dl HDL Cholesterol 62 47 mg/dl Cholesterol/HDL Ratio 3.5 3.9 (0-5) CBC 07/08/22 07/09/22 Range/Units 13:21 04:26 WBC 9.22 10.25 (4.8-10.8) K/ul RBC 5.62 5.29 (4.70-6.10) M/uL Hgb 17.6 16.2 (14.0-18.0) g/dl Hct 48.3 46.3 (42.0-52.0) % Plt Count 301 271 (130-400) K/uL Neut # (Auto) 6.30 6.47 (1.40-6.50) K/uL Lymph # (Auto) 2.06 2.88 (1.2-3.4) K/uL [place] # (Auto) 0.62 H 0.55 (0.11-0.59) K/uL Eos # (Auto) 0.12 0.24 (0-0.50) K/uL Baso # (Auto) 0.09 0.07 (0-0.2) K/uL Comprehensive Metabolic Panel 07/08/22 07/08/22 07/09/22 Range/Units 13:21 14:41 04:26 Sodium 138 137 (136-145) mmol/L Potassium 4.3 4.0 (3.5-5.1) mmol/L Chloride 105 108 H (98-107) mmol/L Carbon Dioxide 22 22 (21-32) mmol/L BUN 12 13 (6-23) mg/dl Creatinine 1.03 0.81 (0.6-1.4) mg/dl Glucose 131 H 110 H (70-99(Fasting)) mg/dl Calcium 9.1 8.3 L (8.6-10.3) mg/dl Direct Bilirubin 0.1 (0-0.2) mg/dl AST 15 16 (13-39) U/L ALT 16 18 (7-52) U/L Alkaline Phosphatase 72 79 (34-104) U/L Total Protein 7.6 8.3 (6.0-8.3) gm/dl Albumin 4.3 4.5 (3.4-5.0) gm/dl Intake and Output 07/08/22 07/09/22 07/09/22 22:59 06:59 14:59 Intake Total 2054 / 2054 Output Total 1450 / 1800 350 / 1800 Balance 605 / 255 -350 / 255 Intake: IV 1355 / 1355 Magnesium Sulfate / D5w 1 gm In 100 / 100 100 ml @ 50 mls/hr IV ONE ONE Rx#:[id number] Sodium Chloride 0.9% 1000ML 1, 1000 / 1000 000 ml @ 999 mls/hr IV .Q1H1M [facility] Rx#:[id number] Sodium Phosphate 15 mmol In 255 / 255 Sodium Chloride 0.9% 250 ml @ 88 mls/hr IV ONE ONE Rx#: [id number] Oral 700 / 700 Output: Urine 1450 / 1800 350 / 1800 Diagnostic Findings July 08, 2022 Coronary Angiography ([facility], Dr. Castillo) KFM-txofb-maordxn vessel trifurcating into LAD, ramus, and circumflex. It has diffuse mild disease. LAD- Large caliber vessel whose first major branch is a large septal trunk with multiple branches. The proximal LAD has an eccentric 95% stenosis which is the culprit. After the septal the mid segment of the LAD is large and then becomes essentially bifid. It splits into a large diagonal branch which itself has 4 major branches. There is no disease in this branch. The second portion of the bifurcation is the distal LAD. Just after the bifurcation and in the earliest portion of that segment there is diffuse disease maximum stenosis of about 40%. The LAD continues where it becomes apical and divides there. Ramus- Medium to large caliber vessel which has an ostial 40 to 50% narrowing. There is no more than mild luminal irregularities in the remainder of the ramus. LCx-large caliber and nondominant. Travels in the AV groove where the proximal segment is large and has no disease. It then gives a small to medium caliber undiseased OM1. Mid segment has mild luminal irregularities and provides atrial branches. It then gives a large caliber branching OM 2 which has no disease. The distal AV groove circumflex becomes medium in size and tapers as it terminates distally and a small posterolateral branch. There is no disease. RCA- This is a large caliber and dominant vessel. It has mild scattered disease. It bifurcates into a large and long PDA without disease. The posterolateral branch is also large with multiple branches and has no disease.
[2022-07-09] MEDS: THIAMINE HCL 100 MG TAB PO SCH (09:19)
[2022-07-09] MEDS: TICAGRELOR 90 MG TAB PO SCH ×2 (09:19→20:37)
[2022-07-09] MEDS: NICOTINE 14 MG/24 HR PATCH TD SCH (09:19)
[2022-07-09] MEDS: PANTOprazole 40 MG TAB PO SCH (09:19)
[2022-07-09] MEDS: ATORVASTATIN 40 MG TAB PO SCH (09:19)
[2022-07-09] MEDS: METOPROLOL TARTRATE 25 MG TAB PO SCH ×2 (09:19→20:37)
[2022-07-09] MEDS: ASPIRIN 81 MG ECTAB PO SCH (09:20)
[2022-07-09] MEDS: UMECLIDINIUM/VILANTEROL 62.5/25MCG 7 PUFFS/INHALER INH SCH (09:20)
[2022-07-09] MEDS: FOLIC ACID 1 MG in SYRINGE 9.8 ML IV SCH (09:21)
[2022-07-09 11:35] LABS: Estimated Average Glucose 131 mg/dl; Hemoglobin A1C 6.2 % (4.5-5.6)
[2022-07-09] MEDS ORDERED: BEER 1 CAN PO PRN (11:50)
--- NOTE | 2022-07-09 12:26 | Cardiology Progress Note ---
Date of Service July 09, 2022 Assessment & Plan (1) ST elevation myocardial infarction (STEMI): Plan Status post PCI of the LAD. No complications. Doing well. Heart rates above target, blood pressure is at target. Continue dual antiplatelet therapy. Continue guideline directed medical therapy. The general process laboratory specialist from [facility] has also been contacted and will be taking over care for the patient. Admission and Anticipated Discharge Date Admission Date: July 08, 2022 Subjective Patient denies any chest pain or shortness of breath overnight. He is anxious for discharge. No pain at the radial access site. No other complaints at this time. Review of Systems Review of Systems: Negative except as per HPI Physical Exam Constitutional: Awake, alert, oriented. No acute distress. Neck: No JVD Respiratory: Clear to auscultation bilaterally. No wheezing, rhonchi, or rales appreciated. Cardiovascular: Regular rate and rhythm. No edema. Musculoskeletal: no cyanosis or clubbing, extremities motor strength 5/5 Neurologic: Cognition is intact. Speech is fluent. No focal deficits. Mild agitation. Psychiatric: A+Ox3, euthymic affect Results & Data Vital Signs (Past 12 Hours) Vital Signs Temp Pulse Resp BP Pulse Ox O2 Del Method 07/09/22 08:00 72 07/09/22 07:00 85 21 114/97 94 Room Air 07/09/22 07:31 36.9 C 07/09/22 07:30 72 07/09/22 06:00 72 18 100/72 94 07/09/22 05:00 78 15 95 07/09/22 05:00 108/72 07/09/22 04:00 36.9 C 07/09/22 04:00 75 18 95 07/09/22 04:00 103/72 07/09/22 03:00 78 22 95 07/09/22 03:00 87/60 L 07/09/22 02:00 78 17 97 07/09/22 02:00 98/68 L 07/09/22 01:00 75 19 96 07/09/22 01:00 111/82 PG Care Time/CCT Total # of Minutes Spent Total Time Spent with Patient: Total time spent is greater than 50% in coordination of care (as documented) at patient's floor/unit and/or counseling patient: Coding Level of Care Code 65378 SUB INP/OBS CARE 2/35MIN Diagnoses ST elevation myocardial infarction (STEMI) I21.3
--- NOTE | 2022-07-09 15:31 | Hospitalist Progress Note ---
Date of Service July 09, 2022 Assessment & Plan (1) Current smoker: Plan: -nicotine patch ordered (2) ST elevation myocardial infarction (STEMI): Plan: NSTEMI --S/P Cath on 07/08/22: Severe proximal LAD stenosis which is the culprit for acute anterior ST elevation [place]. Mild nonocclusive coronary disease in the other coronary arteries. Successful PCI with implantation of a drug-eluting stent to t he LAD. No evidence of complication post PCI 5. Patient will be admitted to the intensive care unit for further work-up and management. Initiate guideline directed medical therapy including low-dose aspirin, high intensity statin therapy, beta-patricia, plus or minus GABRIEL inhibitor/ARB. Dual antiplatelet therapy with aspirin 81 mg daily and Brilinta 90 mg p.o. twice daily. --S/P PCI of the LAD with KG --ECHO: Left ventricle is normal in size. Moderate to severe anterior wall hypokinesis. Moderate to severe apical wall hypokinesis. Moderate to severe septal hypokinesis. EF 45 to 50%. There is no thrombus. Right ventricle systolic function is normal. No significant valvular pathology. 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 drinking (4) COPD (chronic obstructive pulmonary disease): Plan: -counseled smoking cessation -Continue LAMA/LABA inhaler Plan Code status Full Code DVT Px Heparin SQ Admission and Anticipated Discharge Date Admission Date: July 08, 2022 Subjective Patient is seen and examined at bedside States feeling well this morning Denies any chest pain, dyspnea, dizziness, nausea, abdominal pain Plan to be transferred out of ICU today Patient eager to get discharged Review of Systems Review of Systems: All systems reviewed & are unremarkable except as noted in Subjective Physical Exam Physical Exam: Physical Exam: Vitals signs as noted above General Appearance:Moderately built and nourished, no apparent distress Head: normocephalic, Atraumatic Eyes: normal inspection, EOMI Neck: supple, Trachea midline Respiratory/Chest: Decreased breath sounds, CTA, No accessory muscle use Cardiovascular: S1, S2, No murmur Abdomen/GI:Soft, Non tender, Bowel sounds present Extremities/Musculoskeletal:normal inspection, no edema Neurologic/Psych:AAOX3, grossly no focal neurological deficits Skin: normal color, warm Results & Data Results & Data Vital Signs (Past 12 Hours) Vital Signs Temp Pulse Pulse Resp BP BP Pulse Ox 07/09/22 15:14 36.8 C 80 20 102/63 96 07/09/22 08:00 72 07/09/22 07:00 85 21 114/97 94 07/09/22 07:31 36.9 C 07/09/22 07:30 72 07/09/22 06:00 72 18 100/72 94 07/09/22 05:00 78 15 95 07/09/22 05:00 108/72 07/09/22 04:00 36.9 C 07/09/22 04:00 75 18 95 07/09/22 04:00 103/72 O2 Del Method 07/09/22 15:14 Room Air 07/09/22 08:00 07/09/22 07:00 Room Air 07/09/22 07:31 07/09/22 07:30 07/09/22 06:00 07/09/22 05:00 07/09/22 05:00 07/09/22 04:00 07/09/22 04:00 07/09/22 04:00 Laboratory Results Short CBC 07/09/22 Range/Units 04:26 WBC 10.25 (4.8-10.8) K/ul Hgb 16.2 (14.0-18.0) g/dl Hct 46.3 (42.0-52.0) % Plt Count 271 (130-400) K/uL BMP 07/09/22 04:26 Sodium 137 Potassium 4.0 Chloride 108 H Carbon Dioxide 22 BUN 13 Creatinine 0.81 Glucose 110 H Calcium 8.3 L Liver Function 07/08/22 Range/Units 14:41 Total Bilirubin 0.5 (0.2-1.0) mg/dl Direct Bilirubin 0.1 (0-0.2) mg/dl AST 16 (13-39) U/L ALT 18 (7-52) U/L Alkaline Phosphatase 79 (34-104) U/L Albumin 4.5 (3.4-5.0) gm/dl
[2022-07-09] MEDS: HEPARIN SOD 5,000 UNIT/0.5 ML VIAL SQ SCH (20:37)
[2022-07-10 06:14] LABS: Hematocrit (blood only) 46.9 % (42.0-52.0); Mean Corpuscular Hemoglobin 30.2 pg (25.0-34.0); Mean Corpuscular Hgb Conc 34.1 g/dL (32.0-36.0); Mean Corpuscular Volume 88.7 fL (80.0-100.0); Mean Platelet Volume 10.1 fL (9.4-12.4); Platelet Count 273 K/uL (130-400); RDW Coefficient of Variation 13.2 % (11.5-14.5); RDW Standard Deviation 42.5 fL (36.4-46.3); Red Blood Count 5.29 M/uL (4.70-6.10); White Blood Count 10.06 K/ul (4.8-10.8)
[2022-07-10 07:02] LABS: Calcium 8.9 mg/dl (8.6-10.3)
[2022-07-10 07:08] LABS: BUN Creatinine Ratio 17.4 (10-20); Creatinine Clr Calc Pharmacy 92.9 ml/min; Est GFR (African American) 109.7 ml/min; Est GFR (Non-African American) 94.6 ml/min; Phosphorus 4.1 mg/dl (2.5-4.9)
[2022-07-10] MEDS: HEPARIN SOD 5,000 UNIT/0.5 ML VIAL SQ SCH (07:51)
[2022-07-10] MEDS: UMECLIDINIUM/VILANTEROL 62.5/25MCG 7 PUFFS/INHALER INH SCH (07:51)
[2022-07-10] MEDS: NICOTINE 14 MG/24 HR PATCH TD SCH (07:56)
[2022-07-10] MEDS: ATORVASTATIN 40 MG TAB PO SCH (08:00)
[2022-07-10] MEDS: ASPIRIN 81 MG ECTAB PO SCH (08:00)
[2022-07-10] MEDS: METOPROLOL TARTRATE 25 MG TAB PO SCH (08:00)
[2022-07-10] MEDS: THIAMINE HCL 100 MG TAB PO SCH (08:00)
[2022-07-10] MEDS: PANTOprazole 40 MG TAB PO SCH (08:00)
[2022-07-10] MEDS: TICAGRELOR 90 MG TAB PO SCH (08:00)
[2022-07-10] MEDS ORDERED: FOLIC ACID 1 MG TAB PO SCH (09:00)
--- NOTE | 2022-07-10 09:37 | Cardiology Progress Note ---
Date of Service July 10, 2022 Assessment & Plan (1) Current smoker: (2) Coronary artery disease: (3) Atherogenic dyslipidemia: (4) Benign essential hypertension: (5) ST elevation myocardial infarction (STEMI): (6) Alcohol use disorder: Plan Acute anterior STEMI, July 08, 2022, status post PCI of the proximal LAD with a 3.0 x 18 mm [employer] drug-eluting stent Resting echo with moderate to severe anterior, apical, septal hypokinesis. No LV thrombus. Ejection fraction 45 to 50%. Mild nonocclusive CAD in other coronary arteries Hypertension Dyslipidemia Chronic tobacco use Chronic alcohol use RECOMMENDATIONS/PLAN: Guideline directed medical therapy discussed in detail with the patient. Continue dual antiplatelet therapy with aspirin and Brilinta for at least one year, preferably longer. Switch to Clopidogrel (Plavix) if cost is an issue with Brilinta and/or patient is intolerant to Brilinta (increased risk for respiratory effects given history of COPD) Change metoprolol to tartrate to metoprolol succinate at 50 mg once a day Add ARB, losartan potassium 25 mg/day. Intensify statin therapy - switch from atorvastatin to rosuvastatin at 20 mg/day (past issues with myaglia whilst on atorvastatin 40 mg/day). Tobacco cessation Reduction in alcohol intake Cardiac Rehabilitation. Outpatient cardiology follow-up Admission and Anticipated Discharge Date Admission Date: July 08, 2022 Supervising Physician Co-Signing Physician Notes I have reviewed the advance practitioner documentation and agree. I saw and evaluated the patient on the date of service referenced in the note and have performed a medically appropriate history and or exam. Subjective Patient seen and examined. Chart, medications, and telemetry reviewed. No complaints or concerns. Anxious for discharge. Denies chest pain, palpitations, shortness of breath, orthopnea, PND, peripheral edema, headache, lightheadedness, dizziness, fevers, or chills Notes past issues with atorvastatin @ 40 mg/day possibly causing myalgias. Telemetry: No arrhythmias. July 08, 2022 Resting Echo ([facility], Dr. Castillo): Moderate to severe anterior, apical, and septal hypokinesis. Ejection fraction 45 to 50%. No LV thrombus. Normal RV. No significant valvular disease. Review of Systems Review of Systems: Complete Review of Systems: Constitutional: No change in weight. No fevers, sweats, or chills. HEENT: No amaurosis fugax. Pulmonary: COPD. Chronic tobacco use. No history of PE. Cardiac: Remote history of SVT ablation. GI/Abd: History of colonic polyp. Occasional heartburn. No dysphagia. No melana or hematochezia. Denies liver or kidney problems. Vascular: No history of AAA. No claudication. Hematologic: No history of coagulation disorder or transfusion. Musculoskeletal: Arthritis. Skin: No rash. Neurologic: No history of seizure. No history of TIA/CVA. Male : BPH. Elevated PSA. History of gross hematuria. Followed by urology. Endocrine: No DM or thyroid problems. Complete Review of Systems is as stated above, negative, noncontributory Physical Exam Physical Exam: General: A&Ox3. NAD. HENT: Normocephalic. Atraumatic. Eyes: PER. Conjunctiva pink, sclera clear. Neck: No carotid bruits. No JVD. Heart: RRR, 84 bpm. No murmur. No rub. No gallop. PMI is nondisplaced. Lungs: Diminished. Decreased. No wheeze. Abdomen: +BS. Soft. Nontender. No masses or organomegaly. Extremities: Right radial artery puncture site is covered. No hematoma. No lower extremity peripheral edema. No clubbing. No cyanosis. Posterior tibial pulses are 2/4 bilaterally. Limited neurological examination is without focal deficits. Results & Data Vital Signs (Past 12 Hours) Vital Signs Temp Pulse Pulse Resp BP BP Pulse Ox 07/10/22 08:00 37.0 C 07/10/22 07:49 80 17 07/10/22 07:49 80 18 147/82 H 96 07/10/22 07:00 69 19 07/10/22 03:31 36.7 C 74 20 155/89 H 97 07/10/22 00:00 78 07/10/22 00:00 77 15 07/09/22 23:00 36.7 C 78 22 139/71 95 07/09/22 22:00 77 17 O2 Del Method 07/10/22 08:00 Room Air 07/10/22 07:49 07/10/22 07:49 Room Air 07/10/22 07:00 07/10/22 03:31 Room Air 07/10/22 00:00 07/10/22 00:00 07/09/22 23:00 Room Air 07/09/22 22:00 Laboratory Results CBC 07/10/22 Range/Units 05:26 WBC 10.06 (4.8-10.8) K/ul RBC 5.29 (4.70-6.10) M/uL Hgb 16.0 (14.0-18.0) g/dl Hct 46.9 (42.0-52.0) % Plt Count 273 (130-400) K/uL Comprehensive Metabolic Panel 07/10/22 Range/Units 05:26 Sodium 139 (136-145) mmol/L Potassium 4.0 (3.5-5.1) mmol/L Chloride 107 (98-107) mmol/L Carbon Dioxide 24 (21-32) mmol/L BUN 16 (6-23) mg/dl Creatinine 0.92 (0.6-1.4) mg/dl Glucose 108 H (70-99(Fasting)) mg/dl Calcium 8.9 (8.6-10.3) mg/dl Intake and Output 07/09/22 07/10/22 07/10/22 22:59 06:59 14:59 Intake Total 400 / 900 Balance 400 / 900 Intake: Oral 400 / 900 Other: # Unmeasured Voids 1 Weight 79.1 kg 79.4 kg Weight Measurement Method Built in [facility]
[2022-07-10] MEDS ORDERED: LOSARTAN POTASSIUM 25 MG TAB PO SCH (09:45)
[2022-07-10] MEDS ORDERED: METOPROLOL SUCC 50MG EXT REL TAB PO SCH (09:45)
--- NOTE | 2022-07-10 13:08 | Hospitalist Progress Note ---
Date of Service July 10, 2022 Assessment & Plan (1) Current smoker: Plan: -nicotine patch ordered (2) ST elevation myocardial infarction (STEMI): Plan: NSTEMI --S/P Cath on 07/08/22: Severe proximal LAD stenosis which is the culprit for acute anterior ST elevation [place]. Mild nonocclusive coronary disease in the other coronary arteries. Successful PCI with implantation of a drug-eluting stent to t he LAD. No evidence of complication post PCI 5. Patient will be admitted to the intensive care unit for further work-up and management. Initiate guideline directed medical therapy including low-dose aspirin, high intensity statin therapy, beta-patricia, plus or minus GABRIEL inhibitor/ARB. Dual antiplatelet therapy with aspirin 81 mg daily and Brilinta 90 mg p.o. twice daily. --S/P PCI of the LAD with KG --ECHO: Left ventricle is normal in size. Moderate to severe anterior wall hypokinesis. Moderate to severe apical wall hypokinesis. Moderate to severe septal hypokinesis. EF 45 to 50%. There is no thrombus. Right ventricle systolic function is normal. No significant valvular pathology. 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 drinking No signs of alcohol withdrawal today (4) COPD (chronic obstructive pulmonary disease): Plan: -counseled smoking cessation -Continue LAMA/LABA inhaler Plan Code status Full Code DVT Px Heparin SQ Admission and Anticipated Discharge Date Admission Date: July 08, 2022 Subjective Patient is seen and examined at bedside States feeling well today Offers no new complaints No events overnight Eager to get discharged Family at bedside Denies any chest pain, dyspnea, dizziness, nausea, abdominal pain Plan to discharge home today Review of Systems Review of Systems: All systems reviewed & are unremarkable except as noted in Subjective Physical Exam Physical Exam: Physical Exam: Vitals signs as noted above General Appearance:Moderately built and nourished, no apparent distress Head: normocephalic, Atraumatic Eyes: normal inspection, EOMI Neck: supple, Trachea midline Respiratory/Chest: Decreased breath sounds, CTA, No accessory muscle use Cardiovascular: S1, S2, No murmur Abdomen/GI:Soft, Non tender, Bowel sounds present Extremities/Musculoskeletal:normal inspection, no edema Neurologic/Psych:AAOX3, grossly no focal neurological deficits Skin: normal color, warm Results & Data Results & Data Vital Signs (Past 12 Hours) Vital Signs Temp Pulse Pulse Resp BP BP BP 07/10/22 10:51 36.9 C 78 16 156/84 H 07/10/22 08:00 37.0 C 07/10/22 07:49 80 17 07/10/22 07:49 80 18 147/82 H 07/10/22 07:00 69 19 07/10/22 03:31 36.7 C 74 20 155/89 H Pulse Ox O2 Del Method 07/10/22 10:51 97 Room Air 07/10/22 08:00 Room Air 07/10/22 07:49 07/10/22 07:49 96 Room Air 07/10/22 07:00 07/10/22 03:31 97 Room Air Laboratory Results Short CBC 07/10/22 Range/Units 05:26 WBC 10.06 (4.8-10.8) K/ul Hgb 16.0 (14.0-18.0) g/dl Hct 46.9 (42.0-52.0) % Plt Count 273 (130-400) K/uL BMP 07/10/22 05:26 Sodium 139 Potassium 4.0 Chloride 107 Carbon Dioxide 24 BUN 16 Creatinine 0.92 Glucose 108 H Calcium 8.9
--- NOTE | 2022-07-10 13:32 | Discharge Summary ---
Date of Service July 10, 2022 Admission HPI Per Admitting Provider Mr Ana Daniel is a 52 year old man with history of 1 ppd smoker, COPD, alcohol use disorder presents to the ER today with substernal chest pain and STEMI. Patient reports having intermittent chest pain for past several days but today while he was sitting he experienced substernal chest pain with radiation down both arms and across his chest associated with light headedness and nausea. He arrived as a Heart Alert and was taken immediately to the farm labor contractor, found to have a 95% lesion on his LAD and a KG was placed. Received full dose aspirin by EMS. In ER received SL nitroglycerin and ativan 1mg IV. Of note, he reportedly drinks 7 beers daily, denies history of alcohol withdrawal Admission Exam Per Admitting Provider Physical Exam Physical Exam: Appears older than stated age, no acute distress, pleasant and comfortable ENMT: head normocephalic, atraumatic, mucous membrane moist Respiratory: breathing comfortably on room air, no wheezing/rhonchi/rales Cardiovascular: tachycardic but regular, no murmurs/rubs/gallops Gastrointestinal (Abdomen): soft, non tender, non distended Musculoskeletal: No edema, right wrist with no evidence of bleeding currently, no cyanosis or clubbing Skin: no bruising, no rash, no ulcers noted on exposed skin Neurologic: awake, alert, spontaneously moving extremities Psychiatric: affect normal, speech linear, non pressured Principal Diagnosis ST elevation myocardial infarction Prediabetes Alcohol use disorder Tobacco use disorder Discharge Data Allergies Allergy/AdvReac Type Severity Reaction Status Date / Time No Known Allergies Allergy Verified 12/06/21 01:23 Consultations 07/08/22 13:46 ED Decision to Admit Stat 07/08/22 15:07 Consult Health Technician Routine 07/08/22 17:13 Consult Cardiology Routine Procedures Performed Operation Date: 07/08/22 13:45 Actual Procedures p Cineradiography w/Routine Exam - Jay Castillo MD, PhD p Cath, Coronaries ONLY (no LV) - Jay Castillo MD, PhD s Drug Eluting Stent SGl Vessel - Jay Castillo MD, PhD Ordered Studies 07/08/22 13:35 CL Cath Imgs for PACS use only Stat Laboratory Results WBC 10.06 K/ul (4.8-10.8) 07/10/22 05:26 RBC 5.29 M/uL (4.70-6.10) 07/10/22 05:26 Hgb 16.0 g/dl (14.0-18.0) 07/10/22 05:26 POC Hgb 18.0 g/dl (14.0-18.0) 07/08/22 13:24 Hct 46.9 % (42.0-52.0) 07/10/22 05:26 POC Hct 53 % (42-52) H 07/08/22 13:24 MCV 88.7 fL (80.0-100.0) 07/10/22 05:26 MCH 30.2 pg (25.0-34.0) 07/10/22 05:26 MCHC 34.1 g/dL (32.0-36.0) 07/10/22 05:26 RDW Std Deviation 42.5 fL (36.4-46.3) 07/10/22 05: RDW Coeff of Julieth 13.2 % (11.5-14.5) 07/10/22 05:26 Plt Count 273 K/uL (130-400) 07/10/22 05:26 MPV 10.1 fL (9.4-12.4) 07/10/22 05:26 Immature Gran % (Auto) 0.4 % 07/09/22 04:26 Neut % (Auto) 63.1 % 07/09/22 04:26 Lymph % (Auto) 28.1 % 07/09/22 04:26 Bandera % (Auto) 5.4 % 07/09/22 04:26 Eos % (Auto) 2.3 % 07/09/22 04:26 Baso % (Auto) 0.7 % 07/09/22 04:26 Neut # (Auto) 6.47 K/uL (1.40-6.50) 07/09/22 04:26 Lymph # (Auto) 2.88 K/uL (1.2-3.4) 07/09/22 04:26 Bandera # (Auto) 0.55 K/uL (0.11-0.59) 07/09/22 04:26 Eos # (Auto) 0.24 K/uL (0-0.50) 07/09/22 04:26 Baso # (Auto) 0.07 K/uL (0-0.2) 07/09/22 04:26 Immature Gran # (Auto) 0.04 K/uL (0.01-0.20) 07/09/22 04:26 PT 10.3 Seconds (9.0-12.0) 07/08/22 13:21 INR 0.9 (0.9-1.1) 07/08/22 13:21 APTT 26.9 Seconds (21.0-31.0) 07/08/22 13:21 PTT Ratio 1.0 07/08/22 13:21 Activ Coag Time Kaolin 221 SECONDS (94-140) H 07/08/22 14:26 POC Sodium 140 mmol/L (135-144) 07/08/22 13:24 Sodium 139 mmol/L (136-145) 07/10/22 05:26 POC Potassium 4.3 mmol/L (3.3-5.0) 07/08/22 13:24 Potassium 4.0 mmol/L (3.5-5.1) 07/10/22 05:26 POC Chloride 105 mmol/L (101-112) 07/08/22 13:24 Chloride 107 mmol/L (98-107) 07/10/22 05:26 Carbon Dioxide 24 mmol/L (21-32) 07/10/22 05:26 POC Total CO2 19 mmol/L (24-31) L 07/08/22 13:24 Anion Gap 8 (3-11) 07/10/22 05:26 POC Anion Gap 22.0 mmol/L (16-25) 07/08/22 13:24 POC BUN 12 mg/dl (7-18) 07/08/22 13:24 BUN 16 mg/dl (6-23) 07/10/22 05:26 Creatinine 0.92 mg/dl (0.6-1.4) 07/10/22 05:26 POC Creatinine 0.9 mg/dl (0.6-1.3) 07/08/22 13:24 Est Cr Clr Drug Dosing 92.9 ml/min 07/10/22 05:26 Est GFR ( Amer) 109.7 ml/min 07/10/22 05:26 Est GFR (Non-Af Amer) 94.6 ml/min 07/10/22 05:26 BUN/Creatinine Ratio 17.4 (10-20) 07/10/22 05:26 Glucose 108 mg/dl (70-99(Fasting)) H 07/10/22 05:26 POC Glucose 161 mg/dl (70-99) H 07/08/22 21:07 POC Glucose (other) 134 mg/dl (70-99) H 07/08/22 13:24 Estimat Average Glucose 131 mg/dl 07/09/22 04:26 Hemoglobin A1c 6.2 % (4.5-5.6) H 07/09/22 04:26 Calcium 8.9 mg/dl (8.6-10.3) 07/10/22 05:26 POC Ioniz Calcium Ariela 1.11 mmol/l (1.12-1.32) L 07/08/22 13:24 Phosphorus 4.1 mg/dl (2.5-4.9) 07/10/22 05:26 Magnesium 2.0 mg/dl (1.7-2.4) 07/10/22 05:26 Total Bilirubin 0.5 mg/dl (0.2-1.0) 07/08/22 14:41 Direct Bilirubin 0.1 mg/dl (0-0.2) 07/08/22 14:41 AST 16 U/L (13-39) 07/08/22 14:41 ALT 18 U/L (7-52) 07/08/22 14:41 Alkaline Phosphatase 79 U/L (34-104) 07/08/22 14:41 Total Creatine Kinase 58 U/L (30-223) 07/08/22 13:21 Troponin I High Sens 111.2 pg/ml (0-20) H* 07/08/22 13:21 B-Natriuretic Peptide 36 pg/ml (0-100) 07/08/22 13:21 Total Protein 8.3 gm/dl (6.0-8.3) 07/08/22 14:41 Albumin 4.5 gm/dl (3.4-5.0) 07/08/22 14:41 Globulin 3.3 gm/dl (2.5-4.0) 07/08/22 13:21 Albumin/Globulin Ratio 1.3 (0.9-2) 07/08/22 13:21 Triglycerides 128 mg/dl (0-150) 07/09/22 04:26 Cholesterol 185 mg/dl (0-200) 07/09/22 04:26 LDL Cholesterol, Calc 112 mg/dl 07/09/22 04:26 VLDL Cholesterol, Calc 26 mg/dl (0-30) 07/09/22 04:26 HDL Cholesterol 47 mg/dl 07/09/22 04:26 Cholesterol/HDL Ratio 3.9 (0-5) 07/09/22 04:26 Lipase 39 U/L (11-82) 07/08/22 13:21 TSH 0.866 uIu/ml (0.300-4.500) 07/08/22 13:21 Nasal Screen MRSA (PCR) Negative (Negative) 07/08/22 14:45 Ethyl Alcohol mg/dL < 10.0 mg/dl (<10.0) 07/08/22 13:21 SARS-CoV-2, RNA, NAAT NEGATIVE (NEGATIVE) 07/08/22 Unknown Impressions Chest X-Ray 07/08/22 13:14 XR chest 1V portable HISTORY: 52 years-old Male Chest pain, nonspecific COMPARISON: Chest CT 12/06/2021, Chest CT 10/08/2021 TECHNIQUE: AP view of the chest FINDINGS: Cardiomediastinal and hilar silhouettes are within normal limits. There is no pneumothorax, pleural effusion, airspace consolidation or pulmonary edema. Bones appear grossly intact. IMPRESSION: No acute process. ACT 112: Negative or not required by law. The above report was generated using voice recognition software. It may contain grammatical, syntax or spelling errors. Electronically signed by: Jarred Parsons M.D. 07/08/2022 1:55 PM Hospital Course (1) Current smoker: -nicotine patch ordered (2) ST elevation myocardial infarction (STEMI): NSTEMI --S/P Cath on 07/08/22: Severe proximal LAD stenosis which is the culprit for acute anterior ST elevation DE. Mild nonocclusive coronary disease in the other coronary arteries. Successful PCI with implantation of a drug-eluting stent to the LAD. No evidence of complication post PCI 5. Patient will be admitted to the intensive care unit for further work-up and management. Initiate guideline directed medical therapy including low-dose aspirin, high intensity statin therapy, beta-patricia, plus or minus GABRIEL inhibitor/ARB. Dual antiplatelet therapy with aspirin 81 mg daily and Brilinta 90 mg p.o. twice daily. --S/P PCI of the LAD with KG --ECHO: Left ventricle is normal in size. Moderate to severe anterior wall hypokinesis. Moderate to severe apical wall hypokinesis. Moderate to severe se ptal hypokinesis. EF 45 to 50%. There is no thrombus. Right ventricle systolic function is normal. No significant valvular pathology. 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 No signs of alcohol withdrawal today (4) COPD (chronic obstructive pulmonary disease): -counseled smoking cessation -Continue LAMA/LABA inhaler Plan Code status Full Code DVT Px Heparin SQ Total Time Total Time Spent Total Time Spent (In Minutes): 56 minutes Discharge Plan Discharge Items Patient Disposition: Home - Self-Care Reason For Visit: HEART ALERT Discharge Diagnosis: ST elevation myocardial infarction Prediabetes Alcohol use disorder Tobacco use disorder Activity: Per Instructions section Exercise/Sports: Wait until after follow-up appointment Non-emergency contact: Primary Care Provider and Forward Air Controller/Air Officer Call non-emergency contact if: you have any medication questions, your symptoms worsen, your pain is concerning for you and you have a fever Follow-up/Referrals: Emmett Simpson [Physician Tie Worker] - (The Cardiology office will call you with an appointment for follow up.) Kimberli Shen DO [Outside Practitioners] - (Date & Time 07/17/2022 2:00 PM Provider Kimberli Shen DO Department Family [facility] ) Diet: Heart Healthy Add Attending Provider Instructions: Follow-up with your primary care physician Dr. Shen on 07/17/2022 2:00 PM as scheduled Follow-up with your database dba Emmett Simpson PA-C/Dr. Castillo as advised. Cardiology office will call you with follow-up appointment. --- Quit smoking tobacco as advised. Please do not smoke while on nicotine patch. --Minimize alcohol use as recommended. Seek immediate medical attention if your symptoms reoccur or worsen Please take all medications as instructed on discharge list below. Please call if you have any questions or problems. You can reach a Reji hospitalist on duty at [facility] 24 hours a day by calling [phone] Home Care: * Take your medications exactly as directed. Don't skip doses. * Remember that recovery after a heart attack takes time. Plan to rest for at lease 4-8 weeks while you recover. Then return to normal activity when your doctor says it's okay. * Ask your doctor about joining a heart rehabilitation program. * Tell your doctor if you are feeling depressed. Feelings of sadness are common after a heart attack, but it is important that you speak to someone if you are feeling overwhelmed by these feelings. * If you are having chest pain, call 911 for an ambulance. Do NOT drive yourself to the hospital. * Ask your family members to learn CPR. * Learn to take your own blood pressure and pulse. Keep a record of your results. Ask your doctor when you should seek emergency medical attention. He or she will tell you which blood pressure reading is dangerous. Lifestyle Changes: * Maintain a healthy weight. Get help to lose any extra pounds. * Cut back on salt. * Limit canned, dried, packaged, and fast foods. * Don't add salt to your food. * Season foods with herbs instead of salt when you cook. * Break the smoking habit. Enroll in a stop-smoking program to improve your chances of success. * Limit fatty foods. * Ask your doctor about having your lipid levels checked regularly. * Build up your activity according to your doctor's recommendation. * Ask your doctor when it's okay to resume sexual activity. * Tell your doctor about any erectile dysfunction (ED) medication you are taking. Some ED medications are not safe if you take certain heart medications. * Try to manage stress. Follow Up: It is important for you to keep your follow up appointments with your medical provider. Pending Studies at Discharge: No Stand-Alone Forms: My [facility], Smoking Cessation Medications and DC Order Prescriptions: New Brilinta 90 mg Tablet 90 mg PO BID Qty: 60 1RF Anoro Ellipta 62.5-25 mcg/actuation Blister With Device 1 ea inhalation DAILY Qty: 60 0RF metoprolol succinate 50 mg Tablet Extended Release 24 Hr 50 mg PO QAM Qty: 30 1RF thiamine HCl (vitamin B1) 100 mg Tablet 100 mg PO QAM Qty: 30 0RF aspirin 81 mg Tablet,Delayed Release (Dr/Ec) 81 mg PO DAILY Qty: 30 1RF pantoprazole 40 mg Tablet,Delayed Release (Dr/Ec) 40 mg PO QAM Qty: 14 0RF losartan 25 mg Tablet 25 mg PO QAM Qty: 30 1RF folic acid 1 mg Tablet 1 mg PO QAM Qty: 30 0RF rosuvastatin [Crestor] 20 mg Tablet 20 mg PO QAM Qty: 30 1RF nicotine 14 mg/24 hr patch 24 hour 1 patch transdermal DAILY Qty: 28 0RF Continued albuterol sulfate [Ventolin HFA] 90 mcg/actuation Hfa Aerosol Inhaler 2 puff INHALATION Q4H PRN (Reason: Shortness Of Breath Or Wheezing) cyclobenzaprine 10 mg tablet 10 mg PO TID PRN (Reason: muscle spasm) Qty: 20 0RF lorazepam 0 mg PO DAILY Rx Instructions: Per pt it's 20mg, unable to verify on fill history Discontinued atorvastatin 10 mg Tablet 0 mg PO DAILY Rx Instructions: PT UNSURE OF STRENGTH, UNABLE TO VERIFY metoprolol tartrate 25 mg tablet 25 mg PO DAILY Discharge Orders: Discharge Order (Routine); Ordered 07/10/22 Ordered By: Munir Contreras/Other Patient Handouts: Prediabetes, Tips Cardiovascular Quit Smoking, COPD Quit Smoking, 5 Steps for Eating Healthier, Risk Factors for Heart Disease Admission Data Admit Date/Time: 07/08/22 14:34 Attending Provider: Munir Elmore Admit Provider: Ana Molina Primary Care Provider: Carolynn Snyder Other Providers: Ana Molina ; Piter Felder ; Hernandez Castillo
[2022-07-11] MEDS ORDERED: ROSUVASTATIN CALCIUM 20 MG TAB PO SCH (09:00)
== END 2022-07-10 14:30 | disposition home or self-care (01) | DRG 247 ==
LOC: ED 12:57 → 1E 13:40 → SUATTDRO 14:34 → 1E 14:34
PROC: CLB.CCO (2022-07-08 13:45)

== ENCOUNTER 2023-09-22 09:56 | Inpatient (IN) ==
--- NOTE | 2023-09-22 10:08 | Emergency Department Note ---
Impression & Plan Angina pectoris, unstable, Abnormal stress echo, ACS (acute coronary syndrome) ED Provider Note NAME: DAYANARA MOSS AGE: 53 SEX: M : 1970 ARRIVES VIA: Ambulance INFORMANT: Patient, ED PROVIDER(S): Nino Fry MD CHIEF COMPLAINT: Chest pain HPI: This is a 53-year-old male presenting for arm pain. Patient was recently in the emergency department. He was here on Friday, 3 days ago, for chest pain with arm pain. He was noted to have an abnormal stress test and there was attempt admit the patient however patient decided to leave AGAINST MEDICAL ADVICE on Friday. He reportedly had ST depression in the lateral leads with stress testing. Otherwise patient notes that he was pain-free over the weekend but then began having pain this morning. Describes at 10/10 pain in his bilateral arms going into his chest but not actually going to the center of his chest. He does not want to her shoulders as well. He reports no fevers, chills, nausea or vomiting. He reports previous endarterectomy as well. ROS: See above HPI for pertinent positives & negatives. A total of 10 systems reviewed and were otherwise negative. PAST MEDICAL HISTORY: See Below PAST SURGICAL HISTORY: See Below FAMILY HISTORY: See Below SOCIAL HISTORY: See Below HOME MEDICATIONS: See Below ALLERGIES: See Below VITALS: See Below PHYSICAL EXAMINATION: General: resting comfortably in no acute distress Head: Normocephalic and atraumatic Eyes: Normal inspection, extraocular muscles intact Ear, nose, throat: Normal external exam Neck: Normal range of motion Respiratory: lungs clear to auscultation bilaterally Cardiovascular: Regular rate/rhythm, no murmur GI: soft, nontender, no guarding or rebound Extremities: nontender, moves all extremities, 2+ pulses bilaterally Neuro: The patient awake and alert, appropriately conversive, no focal deficits, symmetric faces Skin: Warm, dry, and intact MEDICAL DECISION MAKING: This is a 53-year-old male presenting for arm pain. Patient symptoms are highly suggestive of acute cardiac disease with abnormal stress test on on Friday, 3 days ago with patient leaving AGAINST MEDICAL ADVICE. His EMS EKG does show fairly significant depressions in the lateral leads, V3 through V6. -ECG independently interpreted by me with normal sinus rhythm, rate of 98, normal axis, normal SD, normal QRS, normal QTc, no ST segment elevations consistent with STEMI criteria, aVR elevation with minuscule ST depressions in V4, V5 -At this time patient's EKG in the emergency department is less concerning for ischemia. His previous EKG does appear to show this ST depression concerning for ischemia with resolution 1 patient is resting calm in the ER. -Clinically patient's symptoms do appear consistent with unstable angina. -Patient came slightly hypotensive without symptoms. His pain had improved but he had continued low blood pressure. Bedside echocardiogram was done by me showing preserved EF without pericardial effusion. -Discussed care with Dr. Curiel, [facility] insole channeler, who will see the patient about that at this time. He will talk with Dr. Jorge for possible cardiac catheterization later today. He does recommend heparin. -Patient ordered for heparin bolus and drip. Differential diagnosis: ACS, PE, dissection ER treatment provided: See below Diagnostics interpreted by me: ECG: See above Cardiac Monitoring: An order was placed for continuous cardiac monitoring. The monitor shows a rate of 86 with sinus rhythm. Laboratory studies: As stated above and show below. Imaging studies: See below. Critical Care Note: I have personally spent 45 minutes of critical care time in the direct management of this patient. This includes bedside care, interpretation of diagnostic studies, and testing, discussion with consultants, patient, and family members, and other required patient management activities. This 45 minutes is in excess of all separately billable procedures. Past Med/Surg History Problem List (Updated 09/22/23 @ 19:26 by Nino Fry MD) ACS (acute coronary syndrome) (Acute) Angina pectoris, unstable (Acute) Carotid artery disease Peripheral vascular disease Chest pain (Acute) Abnormal stress echo (Acute) Unstable angina pectoris Current smoker (Acute) Coronary artery disease (Acute) Atherogenic dyslipidemia Benign essential hypertension Alcohol use disorder (Acute) COPD (chronic obstructive pulmonary disease) (Chronic) Medical History (Updated 09/22/23 @ 19:26 by Nino Fry MD) ST elevation myocardial infarction (STEMI) Heart disease Surgical History History of cardiac radiofrequency ablation Social History Smoking Status: Current every day smoker Tobacco Type: Cigarettes Cigarettes Per Day: Pack and 1/4; Second Hand Exposure: Yes; Do You Dip or Chew Tobacco: No; Tobacco Cessation Education Requested by Patient: No Hx Alcohol Use: Yes (09/21/23 at 2330) Alcohol type: beer Hx Substance Use: No Preferred Language: Bulgarian Communication Ability: Effective [employer] Required: No Beliefs That Will Affect Care: None marital status: Current Living Situation: Spouse current occupational status: unemployed Other Information That Helps Us Care for You: No Feels Safe at Home: Yes Safety Concerns: Feels Safe At This Time Assistive Devices: Glasses and Oxygen - at Night Assistive Devices Comment: 2L/NC chronic at night time. Allergies Allergies Allergy/AdvReac Type Severity Reaction Status Date / Time No Known Allergies Allergy Verified 09/19/23 15:41 Home Meds Home Medications Medication Instructions Recorded Confirmed albuterol sulfate 90 mcg/actuation 2 puff inhalation Q4H PRN 01/13/18 09/22/23 aerosol inhaler (Ventolin HFA) Shortness Of Breath Or Wheezing amlodipine 5 mg tablet 5 mg PO QAM 09/19/23 09/22/23 clopidogrel 75 mg tablet 75 mg PO DAILY 09/19/23 09/22/23 fluticasone fur. 100 mcg-umeclid 1 ea inhalation DAILY 09/19/23 09/22/23 62.5 mcg-vilant 25 mcg inhalat.powder (Trelegy Ellipta) hydrochlorothiazide 25 mg tablet 25 mg PO QAM 09/19/23 09/22/23 losartan 50 mg tablet 50 mg PO QAM 09/19/23 09/22/23 nitroglycerin 0.4 mg sublingual 0.4 mg sublingual DIRECTED PRN 09/19/23 09/22/23 tablet Chest Pain rosuvastatin 20 mg tablet 20 mg PO QAM 09/19/23 09/22/23 Previous Rx's Medication Instructions Recorded aspirin 81 mg tablet,delayed 81 mg PO DAILY #30 tabs 07/10/22 release metoprolol succinate 50 mg 50 mg PO QAM #30 tabs 07/10/22 tablet,extended release 24 hr isosorbide mononitrate 30 mg 30 mg PO DAILY #30 tabs 09/19/23 tablet,extended release 24 hr Results & Data (ED) Vital Signs Vital Signs - 24 hr 09/22/23 09:59 09/22/23 10:09 09/22/23 10:09 Temperature 36.8 C 36.8 C Temperature Source Oral Oral Pulse Rate 98 H Pulse Rate [Apical] 87 Pulse Rate from SpO2 Sensor Respiratory Rate 24 16 Blood Pressure 97/77 L Blood Pressure [Left Arm] 97/77 L Blood Pressure Mean 83 Blood Pressure Mean [Left Arm] 83 Blood Pressure Position Semi-fowlers Blood Pressure Position [Left Arm] Semi-fowlers Pulse Oximetry 97 97 97 Oxygen Delivery Method Room Air Oxygen Flow Rate 0 Sepsis Recent Fever Within 48 Hours No Sepsis New/Unexplained Change in Mental Status No Sepsis Action Taken by Nursing Physician Notified Pulse Oximetry Post Tiitration 97 09/22/23 10:26 09/22/23 10:30 09/22/23 10:30 Temperature Temperature Source Pulse Rate 85 Pulse Rate [Apical] Pulse Rate from SpO2 Sensor Respiratory Rate Blood Pressure 92/68 L 92/68 L Blood Pressure [Left Arm] Blood Pressure Mean 75 75 Blood Pressure Mean [Left Arm] Blood Pressure Position Blood Pressure Position [Left Arm] Pulse Oximetry Oxygen Delivery Method Oxygen Flow Rate Sepsis Recent Fever Within 48 Hours Sepsis New/Unexplained Change in Mental Status Sepsis Action Taken by Nursing Pulse Oximetry Post Tiitration 09/22/23 10:33 09/22/23 10:46 09/22/23 10:46 Temperature Temperature Source Pulse Rate 84 Pulse Rate [Apical] Pulse Rate from SpO2 Sensor 86 Respiratory Rate 13 Blood Pressure 95/76 L 95/76 L Blood Pressure [Left Arm] Blood Pressure Mean 81 81 Blood Pressure Mean [Left Arm] Blood Pressure Position Blood Pressure Position [Left Arm] Pulse Oximetry 97 Oxygen Delivery Method Oxygen Flow Rate Sepsis Recent Fever Within 48 Hours Sepsis New/Unexplained Change in Mental Status Sepsis Action Taken by Nursing Pulse Oximetry Post Tiitration 09/22/23 10:51 09/22/23 11:00 09/22/23 11:00 Temperature Temperature Source Pulse Rate 86 78 Pulse Rate [Apical] Pulse Rate from SpO2 Sensor 83 79 Respiratory Rate 21 12 Blood Pressure 83/66 L Blood Pressure [Left Arm] Blood Pressure Mean 72 Blood Pressure Mean [Left Arm] Blood Pressure Position Blood Pressure Position [Left Arm] Pulse Oximetry 96 97 Oxygen Delivery Method Oxygen Flow Rate Sepsis Recent Fever Within 48 Hours Sepsis New/Unexplained Change in Mental Status Sepsis Action Taken by Nursing Pulse Oximetry Post Tiitration Laboratory Data 09/22/23 09:30 09/22/23 09:30 Lab Results 09/22/23 Range/Units 09:30 WBC 6.56 (4.8-10.8) K/ul RBC 4.90 (4.70-6.10) M/uL Hgb 14.7 (14.0-18.0) g/dl Hct 41.9 L (42.0-52.0) % MCV 85.5 (80.0-100.0) fL MCH 30.0 (25.0-34.0) pg MCHC 35.1 (32.0-36.0) g/dL RDW Std Deviation 38.6 (36.4-46.3) fL RDW Coeff of Julieth 12.4 (11.5-14.5) % Plt Count 259 (130-400) K/uL MPV 10.1 (9.4-12.4) fL Immature Gran % (Auto) 0.3 % Neut % (Auto) 56.0 % Lymph % (Auto) 31.7 % [place] % (Auto) 8.2 % Eos % (Auto) 2.7 % Baso % (Auto) 1.1 % Neut # (Auto) 3.67 (1.40-6.50) K/uL Lymph # (Auto) 2.08 (1.20-3.40) K/uL [place] # (Auto) 0.54 (0.11-0.59) K/uL Eos # (Auto) 0.18 (0.00-0.50) K/uL Baso # (Auto) 0.07 (0.00-0.20) K/uL Immature Gran # (Auto) 0.02 (0.01-0.20) K/uL Heparin Anti-Xa, Unfract < 0.10 L (0.3-0.7) IU/ml Sodium 136 (136-145) mmol/L Potassium 3.6 (3.5-5.1) mmol/L Chloride 103 (98-107) mmol/L Carbon Dioxide 26 (21-32) mmol/L Anion Gap 7 (3-11) BUN 9 (6-23) mg/dl Creatinine 0.89 (0.6-1.4) mg/dl Est Cr Clr Drug Dosing 94.9 ml/min Est GFR ( Amer) 112.3 ml/min Est GFR (Non-Af Amer) 96.9 ml/min BUN/Creatinine Ratio 10.1 (10-20) Glucose 125 H (70-99(Fasting)) mg/dl Calcium 8.9 (8.6-10.3) mg/dl Total Bilirubin 0.3 (0.2-1.0) mg/dl Direct Bilirubin 0.1 (0-0.2) mg/dl AST 14 (13-39) U/L ALT 14 (7-52) U/L Alkaline Phosphatase 60 (34-104) U/L Troponin I High Sens 8.5 (0-20) pg/ml Total Protein 7.2 (6.0-8.3) gm/dl Albumin 4.3 (3.4-5.0) gm/dl Lipase 35 (11-82) U/L Administered Medications Nicotine (Nicotine 21 Mg/24 Hr Tdsy) 1 patch TD QAM JANET Stop: 10/22/23 14:59 Last Admin: 09/22/23 16:57 Dose: 1 patch Documented By: AM Discontinued Medications Amlodipine Besylate (Amlodipine Besylate 5 Mg Tab) 5 mg PO NOW ONE Stop: 09/22/23 16:40 Last Admin: 09/22/23 16:58 Dose: 5 mg Documented By: TAYLOR Fentanyl Citrate (Fentanyl Citrate Pf 100 Mcg/2 Ml Vial) Confirm Administered Dose 100 mcg .ROUTE .STK-MED ONE Stop: 09/22/23 14:35 Last Admin: 09/22/23 15:35 Dose: 100 mcg Documented By: JORDI Fentanyl Citrate (Fentanyl Citrate Pf 100 Mcg/2 Ml Vial) Confirm Administered Dose 100 mcg .ROUTE .STK-MED ONE Stop: 09/22/23 15:22 Last Increment: 09/22/23 15:47 Dose: 50 mcg Documented By: JORDI Heparin Sodium (Porcine) (Heparin Sod (Porcine) 1000 Unit/Ml) 1 units IV NOW ONE Stop: 09/22/23 12:20 Last Admin: 09/22/23 12:29 Dose: 5,000 units Documented By: DAVION Co-signed By: FAVIOLA Heparin Sodium (Porcine) (Heparin (Porcine) 1000 Unit/Ml 10 Ml (Job [employer]man Use Only)) Confirm Administered Dose 10,000 units .ROUTE .STK-MED ONE Stop: 09/22/23 14:35 Last Admin: 09/22/23 15:47 Dose: 7,000 units Documented By: JORDI Heparin Sodium/Dextrose (Heparin Iv Adult Wt-Based Low-Dose W/ Initial Bolus Protocol) 1 each IV NOW STA; Protocol Stop: 09/22/23 12:03 Last Admin: 09/22/23 12:37 Dose: Not Given Documented By: DAVION Heparin Sodium/Sodium Chloride (Heparin In Nss Infusion 1000 Unit/500 Ml (2 U/Ml) Bag) Confirm Administered Dose 3,000 units IV .STK-MED ONE Stop: 09/22/23 14:36 Last Admin: 09/22/23 15:35 Dose: 3,000 units Documented By: IVÁN Heparin Sodium/Dextrose (Heparin Sodium/Dextrose) 25,000 units in 500 mls @ 18 mls/hr IV .Q24H [facility]; Protocol Stop: 10/22/23 12:29 Last Titration: 09/22/23 16:42 Dose: Infused Documented By: TAYLOR Co-signed By: YOVANI Titration: 09/22/23 14:23 Dose: 0 units/hr, 0 mls/hr Documented By: TAYLOR Co-signed By: KRYSTINA Admin: 09/22/23 12:29 Dose: 900 units/hr, 18 mls/hr Documented By: DAVION Co-signed By: FAVIOLA Ioversol (Optiray 350) Confirm Administered Dose 1 ml .ROUTE .STK-MED ONE Stop: 09/22/23 14:36 Last Admin: 09/22/23 15:49 Dose: 65 ml Documented By: IVÁN Isosorbide Mononitrate (Isosorbide [place] Extended Rel 30 Mg Tabcr) 30 mg PO NOW ONE Stop: 09/22/23 16:42 Last Admin: 09/22/23 16:59 Dose: 30 mg Documented By: TAYLOR Losartan Potassium (Losartan Potassium 50 Mg Tab) 50 mg PO ONE ONE Stop: 09/22/23 16:40 Last Admin: 09/22/23 17:40 Dose: Not Given Documented By: TAYLOR Metoprolol Tartrate (Metoprolol Tartrate 1 Mg/Ml Vial) 2.5 mg IV NOW STA Stop: 09/22/23 12:15 Last Admin: 09/22/23 12:41 Dose: 2.5 mg Documented By: DAVION Midazolam HCl (Midazolam Hcl 1 Mg/Ml 2ml Vial) Confirm Administered Dose 2 mg .ROUTE .STK-MED ONE Stop: 09/22/23 14:35 Last Admin: 09/22/23 15:35 Dose: 2 mg Documented By: JORDI Midazolam HCl (Midazolam Hcl 1 Mg/Ml 2ml Vial) Confirm Administered Dose 2 mg .ROUTE .Daily Aisle-MED ONE Stop: 09/22/23 15:20 Last Admin: 09/22/23 15:47 Dose: 2 mg Documented By: JORDI Nicardipine HCl (Nicardipine Hcl Inj 2.5 Mg/Ml 10 Ml Amp) Confirm Administered Dose 25 mg .ROUTE .Daily Aisle-MED ONE Stop: 09/22/23 14:36 Last Admin: 09/22/23 15:34 Dose: 25 mg Documented By: IVÁN Nitroglycerin/Dextrose (Nitroglycerin/D5w 100mcg/Ml 20ml Syr) Confirm Administered Dose 2,000 mcg .ROUTE .Daily Aisle-MED ONE Stop: 09/22/23 14:36 Last Admin: 09/22/23 15:34 Dose: 2,000 mcg Documented By: IVÁN Ticagrelor (Ticagrelor 90 Mg Tab) Confirm Administered Dose 180 mg .ROUTE .Daily Aisle- Koinify ONE Stop: 09/22/23 15:41 Last Admin: 09/22/23 15:50 Dose: 180 mg Documented By: JORDI Imaging Data Radiologist's Impression: Chest X-Ray 09/22/23 10:00 XR chest 1V portable HISTORY: 53 years-old Male CP acute chest pain COMPARISON: 09/19/2023 TECHNIQUE: AP view of the chest FINDINGS: Lungs are clear. Pulmonary emphysema. Cardiac silhouette appears normal. No pneumothorax or pleural effusion. Mild subsegmental right basilar atelectasis versus scarring. IMPRESSION: No acute process. ACT 112: Negative or not required by law. The above report was generated using voice recognition software. It may contain grammatical, syntax or spelling errors. Electronically signed by: Jarred Parsons M.D. 09/22/2023 10:54 AM Discharge Plan Visit Data Chief Complaint: Cardiac Assessment ED Provider: Nino Fry Discharge Problem: Angina pectoris, unstable, Abnormal stress echo, ACS (acute coronary syndrome) Patient Disposition: Admitted As Inpatient Discharge Instructions Interventions: ED Discharge Assessment Last Done: 09/22/23 12:55
[2023-09-22 10:45] LABS: Basophils # (auto) 0.07 K/uL (0.00-0.20); Basophils % (auto) 1.1 %; Eosinophils # (auto) 0.18 K/uL (0.00-0.50); Eosinophils % (auto) 2.7 %; Hematocrit (blood only) 41.9 % (42.0-52.0); Hemoglobin 14.7 g/dl (14.0-18.0); Immature Granulocytes # (auto) 0.02 K/uL (0.01-0.20); Immature Granulocytes % (auto) 0.3 %; Lymphocytes # (auto) 2.08 K/uL (1.20-3.40); Lymphocytes % (auto) 31.7 %; Mean Corpuscular Hgb Conc 35.1 g/dL (32.0-36.0); Mean Corpuscular Volume 85.5 fL (80.0-100.0); Mean Platelet Volume 10.1 fL (9.4-12.4); Monocytes # (auto) 0.54 K/uL (0.11-0.59); Monocytes % (auto) 8.2 %; Neutrophils # (auto) 3.67 K/uL (1.40-6.50); Platelet Count 259 K/uL (130-400); RDW Coefficient of Variation 12.4 % (11.5-14.5); RDW Standard Deviation 38.6 fL (36.4-46.3); White Blood Count 6.56 K/ul (4.8-10.8)
--- NOTE | 2023-09-22 10:57 | XRay Report ---
XR chest 1V portable HISTORY: 53 years-old Male CP acute chest pain COMPARISON: 09/19/2023 TECHNIQUE: AP view of the chest FINDINGS: Lungs are clear. Pulmonary emphysema. Cardiac silhouette appears normal. No pneumothorax or pleural e ffusion. Mild subsegmental right basilar atelectasis versus scarring. IMPRESSION: No acute process. ACT 112: Negative or not required by law. The above report was generated using voice recognition software. It may contain grammatical, syntax o r spelling errors. Electronically signed by: Jarred Parsons M.D. 09/22/2023 10:54 AM
[2023-09-22 11:00] LABS: Albumin Level 4.3 gm/dl (3.4-5.0); BUN Creatinine Ratio 10.1 (10-20); Bilirubin Direct 0.1 mg/dl (0-0.2); Bilirubin,Total 0.3 mg/dl (0.2-1.0); Calcium 8.9 mg/dl (8.6-10.3); Creatinine Clr Calc Pharmacy 94.9 ml/min; Est GFR (African American) 112.3 ml/min; Est GFR (Non-African American) 96.9 ml/min; Potassium 3.6 mmol/L (3.5-5.1); Total Protein 7.2 gm/dl (6.0-8.3)
[2023-09-22 11:03] LABS: Troponin I High Sensitivity 8.5 pg/ml (0-20)
--- NOTE | 2023-09-22 12:16 | Cardiology Consultation ---
Date of Consultation September 22, 2023 Assessment & Plan (1) Unstable angina pectoris: (2) Abnormal stress echo: (3) Peripheral vascular disease: Left subclavian occlusion (4) Carotid artery disease: Status post left carotid enterectomy 06/25/2023 Plan Patient is a 53-year-old male with known carotid disease coronary artery disease and peripheral vascular disease (left subclavian occlusion) hospitalized last week with chest pain consistent with unstable angina. Stress testing positive for ischemia.Patient chose not to be maintained in hospital setting at that time for diagnostic cardiac catheterization. We presented this morning with symptoms with acute chest pain consistent with angina pectoris at rest with dynamic ST depression on EKG in ambulance and ER. Symptoms are relieved with 3 sublingual nitroglycerin. EKGs with dynamic ST depression lateral leads but no acute ST elevation Currently symptoms have abated. Initial troponin negative Impression: Unstable angina at rest. Will initiate anticoagulation with IV heparin Blood pressures via right arm Did not have a.m. medications this morning will give 2.5 mg IV metoprolol for heart rate and blood pressure control but blood pressure is relatively soft on left arm checked N.p.o. for cardiac catheterization later today History of Present Illness Reason for Consultation: Chest pain, unstable angina Requesting Physician: Dr. Fry History of Present Illness Patient is a 53-year-old male who represents to the hospital via ambulance transport after developing chest pain this morning. Pain developed approximately 8:30 AM after cough severe bilateral shoulder pain going down both arms with associated marked diaphoresis. Patient summoned ambulance. Received sublingual nitroglycerin x 3 and aspirin and route with resolving of pain shortly after ER arrival. EKGs with dynamic lateral ST depression Patient hospitalized last week for similar symptoms with positive stress testing with ST segment abnormalities in apical echocardiographic abnormalities. Patient chose not to remain in hospital for cardiac catheterization at that time Underlying cardiac issues include per recent record 1. Anterior ST segment elevation myocardial infarction with PCI, 07/08/2022 drug-eluting stent to the culprit proximal LAD, residual 40% distal LAD stenosis, ramus artery stenosis 2. Hypertension 3. Dyslipidemia 4. Impaired glucose tolerance 5. Ongoing cigarette smoking with emphysematous lung changes 6. Peripheral arterial disease/cerebrovascular disease with history of left carotid endarterectomy, Jun, 2023, [facility] 7. Chronic left subclavian artery occlusion (recommend blood pressures in the right arm for accuracy). Pain currently improved in ER. Denies any acute distress. Did not have medications this morning Last meal 10 PM last night No prior difficulties with anesthesia or sedation No fevers chills or unexplained infections Does smoke 1/2 pack cigarettes per day drinks approximately 6 pack of beer daily No bleeding issues dark black stools or blood in the stools No current complaints of indigestion or heartburn Prior to day faithful with medications Allergies Allergy/AdvReac Type Severity Reaction Status Date / Time No Known Allergies Allergy Verified 09/19/23 15:41 Home Medications Medication Instructions Recorded Confirmed Type albuterol sulfate 90 mcg/actuation 2 puff inhalation Q4H PRN 01/13/18 09/19/23 History aerosol inhaler (Ventolin HFA) Shortness Of Breath Or Wheezing aspirin 81 mg tablet,delayed 81 mg PO DAILY #30 tabs 07/10/22 09/19/23 Rx release metoprolol succinate 50 mg 50 mg PO QAM #30 tabs 07/10/22 09/19/23 Rx tablet,extended release 24 hr umeclidinium 62.5 mcg-vilanterol 1 ea inhalation DAILY #60 ea 07/10/22 09/19/23 Rx 25 mcg/actuation powdr for inhalation (Anoro Ellipta) amlodipine 5 mg tablet 5 mg PO QAM 09/19/23 09/19/23 History clopidogrel 75 mg tablet 75 mg PO DAILY 09/19/23 09/19/23 History fluticasone fur. 100 mcg-umeclid 1 ea inhalation DAILY 09/19/23 09/19/23 History 62.5 mcg-vilant 25 mcg inhalat.powder (Trelegy Ellipta) hydrochlorothiazide 25 mg tablet 25 mg PO QAM 09/19/23 09/19/23 History isosorbide mononitrate 30 mg 30 mg PO DAILY #30 tabs 09/19/23 Rx tablet,extended release 24 hr loperamide 2 mg capsule 2 mg PO DIRECTED PRN Diarrhea 09/19/23 09/19/23 History losartan 50 mg tablet 50 mg PO QAM 09/19/23 09/19/23 History nitroglycerin 0.4 mg sublingual 0.4 mg sublingual DIRECTED PRN 09/19/23 09/19/23 History tablet Chest Pain rosuvastatin 20 mg tablet 20 mg PO QAM 09/19/23 09/19/23 History Patient History Surgical History History of cardiac radiofrequency ablation Social History Smoking Status: Current every day smoker Tobacco Type: Cigarettes Cigarettes Per Day: Pack and 1/4; Second Hand Exposure: Yes; Do You Dip or Chew Tobacco: No; Hx Alcohol Use: Yes Alcohol type: beer Hx Substance Use: No Preferred Language: Icelandic Communication Ability: Effective [employer] Director Required: No Beliefs That Will Affect Care: None marital status: Current Living Situation: Significant Other current occupational status: unemployed Feels Safe at Home: Yes Assistive Devices: None Review of Systems Review of Systems: All systems reviewed & are unremarkable except as noted in HPI & below Physical Exam Constitutional: average body habitus; no acute distress Eyes: PERRL, conjunctivae normal, anicteric sclerae ENMT: external ear and nose normal, oropharynx normal Neck: trachea midline, no thyromegaly Respiratory: Auscultation: + diminished lung sounds; no wheezes Cardiovascular: Rate/Rhythm: regular rate and regular rhythm Heart Sounds: normal S1 and normal S2 Vessels: no JVD Extremities: no edema Gastrointestinal (Abdomen): normal bowel sounds, soft, nontender, no hepatosplenomegaly Skin: no rashes, warm and dry Neurologic: PERRL, EOMI, accommodation nl, no face palsy, no dysarthria Results & Data Vital Signs (Past 12 Hours) Vital Signs Temp Pulse Pulse Resp BP BP Pulse Ox 09/22/23 11:00 83/66 L 09/22/23 11:00 78 12 97 09/22/23 10:51 86 21 96 09/22/23 10:46 95/76 L 09/22/23 10:46 95/76 L 09/22/23 10:33 84 13 97 09/22/23 10:30 92/68 L 09/22/23 10:30 92/68 L 09/22/23 10:26 85 09/22/23 10:09 36.8 C 87 16 97/77 L 97 09/22/23 10:09 97 09/22/23 09:59 36.8 C 98 H 24 97/77 L 97 O2 Del Method O2 Flow Rate 09/22/23 11:00 09/22/23 11:00 09/22/23 10:51 09/22/23 10:46 09/22/23 10:46 09/22/23 10:33 09/22/23 10:30 09/22/23 10:30 09/22/23 10:26 09/22/23 10:09 09/22/23 10:09 Room Air 0 09/22/23 09:59 Laboratory Results Laboratory Results - last 24 hr 09/22/23 09:30 WBC 6.56 RBC 4.90 Hgb 14.7 Hct 41.9 L MCV 85.5 MCH 30.0 MCHC 35.1 RDW Std Deviation 38.6 RDW Coeff of Julieth 12.4 Plt Count 259 MPV 10.1 Immature Gran % (Auto) 0.3 Neut % (Auto) 56.0 Lymph % (Auto) 31.7 [place] % (Auto) 8.2 Eos % (Auto) 2.7 Baso % (Auto) 1.1 Neut # (Auto) 3.67 Lymph # (Auto) 2.08 [place] # (Auto) 0.54 Eos # (Auto) 0.18 Baso # (Auto) 0.07 Immature Gran # (Auto) 0.02 Heparin Anti-Xa, Unfract Pending Sodium 136 Potassium 3.6 Chloride 103 Carbon Dioxide 26 Anion Gap 7 BUN 9 Creatinine 0.89 Est Cr Clr Drug Dosing 94.9 Est GFR ( Amer) 112.3 Est GFR (Non-Af Amer) 96.9 BUN/Creatinine Ratio 10.1 Glucose 125 H Calcium 8.9 Total Bilirubin 0.3 Direct Bilirubin 0.1 AST 14 ALT 14 Alkaline Phosphatase 60 Troponin I High Sens 8.5 Total Protein 7.2 Albumin 4.3 Lipase 35 Diagnostic Findings Carotid duplex 08/22/2023 Impression: Right carotid artery duplex examination indicates evidence of less than 50% stenosis of the internal carotid artery. Left carotid artery duplex examination indicates evidence of less than 50% stenosis of the internal carotid artery. Additional comments: Retrograde flow noted in the left vertebral artery which may represent a proximal stenosis or occlusion.
[2023-09-22 12:26] LABS: ANTI-Xa, UFH(UnfractionatedHep < 0.10 IU/ml (0.3-0.7)
[2023-09-22] MEDS: HEPARIN SOD (PORCINE) 1000 UNIT/ML IV ONE (12:29)
[2023-09-22] MEDS: HEPARIN SODIUM/DEXTROSE 25,000 UNITS/500 ML BAG IV SCH (12:29)
[2023-09-22] MEDS: Heparin IV Adult Wt-Based Low-Dose w/ INITIAL Bolus Protocol IV STA (12:37)
[2023-09-22] MEDS: METOPROLOL TARTRATE 1 MG/ML VIAL IV STA (12:41)
--- NOTE | 2023-09-22 12:42 | Pre Anesthesia Assessment ---
Date of Service September 22, 2023 Pre Sedation Assessment Vital Signs Temp Pulse Pulse Resp BP BP Pulse Ox 09/22/23 11:00 83/66 L 09/22/23 11:00 78 12 97 09/22/23 10:51 86 21 96 09/22/23 10:46 95/76 L 09/22/23 10:46 95/76 L 09/22/23 10:33 84 13 97 09/22/23 10:30 92/68 L 09/22/23 10:30 92/68 L 09/22/23 10:26 85 09/22/23 10:09 98.2 F 87 16 97/77 L 97 09/22/23 10:09 97 09/22/23 09:59 98.2 F 98 H 24 97/77 L 97 O2 Del Method O2 Flow Rate 09/22/23 11:00 09/22/23 11:00 09/22/23 10:51 09/22/23 10:46 09/22/23 10:46 09/22/23 10:33 09/22/23 10:30 09/22/23 10:30 09/22/23 10:26 09/22/23 10:09 09/22/23 10:09 Room Air 0 09/22/23 09:59 Cardiovascular + regular rate Respiratory + respiratory effort normal Pre-Sedation Airway Assessment Smoking Status: Current every day smoker Hx Sleep Apnea: No Hx Difficult Intubation: No Short, Thick Neck: No Thyromental Distance: > or= 3.5 Finger Breadths Oral Cavity: + Dental Abnormalities Mallampati Class: III ASA: ASA3 Procedure Planning Contraindications for Sedation: none Current Medications Reviewed: Yes Notes The planned sedation has been discussed with the patient. Informed Consent was obtained. I have identified the patient, determined the appropriateness of sedation and have assessed the patient immediately prior to the procedure. All medicine(s) and interventions are by my order.
--- NOTE | 2023-09-22 12:57 | History & Physical Report ---
Date of Service September 22, 2023 Assessment & Plan (1) Unstable angina pectoris: Plan: This is a 53 y/o male with hx of anterior STEMI in June 2022, s/p cath with stent placement, COPD, ongoing tobacco use, remote hx of PSVT ablation, carotid stenosis s/o enterectomy 06/25/23, PVD, HTN, dyslipidemia and other history as outlined who presented to the ED today with bilateral arm pain with associated diaphoresis. Pt had an abnormal stress test on Friday and was recommended to be admitted to undergo cardiac catheterization but signed out AMA. He has continued to have symptoms at home and returned to the ED today an episode of severe shoulder pain with diaphoresis. His pain resolved with nitro x 3 doses. He is now willing to be admitted to undergo procedure this afternoon. - Admit to PCU - Consult cardiology - likely cath this afternoon - Heparin gtt started in the ED, will continue for now - Continue outpatient meds, including aspirin, clopidogrel, isosorbide, beta- patricia and statin - Lipid panel in the AM - Pt requests nicotine patch while admitted - working on cutting back on smoking (encouraged to continue with a goal of cessation), down to 1/2 PPD (2) Coronary artery disease: Plan: See plan for #1 (3) COPD (chronic obstructive pulmonary disease): Plan: Smoking cessation advised - nicotine patch as above Continue inhalers Uses O2 at night - will continue (4) Benign essential hypertension: Plan: Chronic, stable. Initial BPs were low but blood pressure was being check in the left arm with known subclavian occlusion Continue home medications (5) Alcohol use disorder: Plan: Denies prior hx of withdrawal symptoms - will monitor this admission. Drinking a six pack of beer daily. (6) Peripheral vascular disease: Plan: History of left subclavian occlusion so BPs to be checked in the right arm (7) Carotid artery disease: Plan Pt seen and reviewed with collaborating physician, Dr. Verduzco. Plan of care discussed and as outlined above. Code status: full code DVT prophylaxis: on heparin gtt Admit to PCU for cardiac catheterization this afternoon. Jacquelyn Aly PA-C History of Present Illness Chief Complaint: bilateral arm pain, recent abnormal stress test Primary Care Provider: Kimberli Shen, This is a 53 y/o male with hx of anterior STEMI in June 2022, s/p cath with stent placement, COPD, ongoing tobacco use, remote hx of PSVT ablation, carotid stenosis s/o enterectomy 06/25/23, PVD, HTN, dyslipidemia and other history as outlined who presented to the ED today with bilateral arm pain with associated diaphoresis. Pt was seen in the ED on 09/19/23 for chest and arm discomfort, had an exercise stress echocardiogram that was abnormal and admission was recommended. However, pt declined and signed out AMA. Over the weekend, he has continued to have episodes of chest and arm discomfort with exertion, improve with rest. This morning, he developed severe bilateral shoulder pain radiating down both arms with associated diaphoresis so he called EMS. He was given sublingual nitroglycerin x 3 and aspirin en route with resolution of his pain. Currently, he is pain-free. EKGs showed dynamic ST depression in the lateral leads but no ST elevation. Pt reports that he had done well after his cath last year until the last few months when he developed episodic lightheadedness. This was originally attributed to known carotid disease but has not significant improved after surgical intervention. He reports that he has been taking all medications as prescribed but has not yet taken his medications today. He has cut back to 1/2 PPD of cigarettes, continues to drink a six pack of beer daily. Denies prior EtOH withdraw symptoms when hospitalized. Denies fevers, chills, or recent infection. COPD symptoms have been at baseline. Cardiac catheterization 07/08/22: 1. Severe proximal LAD stenosis which is the culprit for acute anterior ST elevation AR. 2. Mild nonocclusive coronary disease in the other coronary arteries. 3. Successful PCI with implantation of a drug-eluting stent to the LAD. Stress Echocardiogram 09/19/23: exercise stress echocardiogram is abnormal and suggestive of ischemia, HR response to exercise attenuated due to beta-patricia therapy, stress EKG abnormal w/ development of 1.[address] segment depression in the inferior leads as well as leads V3-V6, resting wall motion normal Allergies Allergy/AdvReac Type Severity Reaction Status Date / Time No Known Allergies Allergy Verified 09/19/23 15:41 Home Medications Medication Instructions Recorded Confirmed Type albuterol sulfate 90 mcg/actuation 2 puff inhalation Q4H PRN 01/13/18 09/22/23 History aerosol inhaler (Ventolin HFA) Shortness Of Breath Or Wheezing aspirin 81 mg tablet,delayed 81 mg PO DAILY #30 tabs 07/10/22 09/22/23 Rx release metoprolol succinate 50 mg 50 mg PO QAM #30 tabs 07/10/22 09/22/23 Rx tablet,extended release 24 hr amlodipine 5 mg tablet 5 mg PO QAM 09/19/23 09/22/23 History clopidogrel 75 mg tablet 75 mg PO DAILY 09/19/23 09/22/23 History fluticasone fur. 100 mcg-umeclid 1 ea inhalation DAILY 09/19/23 09/22/23 History 62.5 mcg-vilant 25 mcg inhalat.powder (Trelegy Ellipta) hydrochlorothiazide 25 mg tablet 25 mg PO QAM 09/19/23 09/22/23 History isosorbide mononitrate 30 mg 30 mg PO DAILY #30 tabs 09/19/23 09/22/23 Rx tablet,extended release 24 hr losartan 50 mg tablet 50 mg PO QAM 09/19/23 09/22/23 History nitroglycerin 0.4 mg sublingual 0.4 mg sublingual DIRECTED PRN 09/19/23 09/22/23 History tablet Chest Pain rosuvastatin 20 mg tablet 20 mg PO QAM 09/19/23 09/22/23 History Past Med/Surg History Problem List (Updated 09/22/23 @ 14:41 by Monique Aly PA-C) Carotid artery disease Peripheral vascular disease Chest pain (Acute) Abnormal stress echo (Acute) Unstable angina pectoris Current smoker (Acute) Coronary artery disease (Acute) Atherogenic dyslipidemia Benign essential hypertension Alcohol use disorder (Acute) COPD (chronic obstructive pulmonary disease) (Chronic) Medical History (Updated 09/22/23 @ 14:41 by Monique Aly PA-C) ST elevation myocardial infarction (STEMI) Heart disease Surgical History History of cardiac radiofrequency ablation Social History Smoking Status: Current every day smoker Tobacco Type: Cigarettes Cigarettes Per Day: Pack and 1/4; Second Hand Exposure: Yes; Do You Dip or Chew Tobacco: No; Tobacco Cessation Education Requested by Patient: No Hx Alcohol Use: Yes (09/21/23 at 2330) Alcohol type: beer Hx Substance Use: No Preferred Language: Armenian Communication Ability: Effective Lighting Fixtures Decorator Required: No Beliefs That Will Affect Care: None marital status: Current Living Situation: Spouse current occupational status: unemployed Other Information That Helps Us Care for You: No Feels Safe at Home: Yes Safety Concerns: Feels Safe At This Time Assistive Devices: Glasses and Oxygen - at Night Assistive Devices Comment: 2L/NC chronic at night time. Review of Systems Review of Systems: All systems reviewed & are unremarkable except as noted in Subjective Physical Exam Physical Exam: Please see physician note for details of the physical exam. Results & Data Results & Data Vital Signs (Past 12 Hours) Vital Signs Temp Pulse Pulse Resp BP BP Pulse Ox 09/22/23 11:00 83/66 L 09/22/23 11:00 78 12 97 09/22/23 10:51 86 21 96 09/22/23 10:46 95/76 L 09/22/23 10:46 95/76 L 09/22/23 10:33 84 13 97 09/22/23 10:30 92/68 L 09/22/23 10:30 92/68 L 09/22/23 10:26 85 09/22/23 10:09 36.8 C 87 16 97/77 L 97 09/22/23 10:09 97 09/22/23 09:59 36.8 C 98 H 24 97/77 L 97 O2 Del Method O2 Flow Rate 09/22/23 11:00 09/22/23 11:00 09/22/23 10:51 09/22/23 10:46 09/22/23 10:46 09/22/23 10:33 09/22/23 10:30 09/22/23 10:30 09/22/23 10:26 09/22/23 10:09 09/22/23 10:09 Room Air 0 09/22/23 09:59 Laboratory Results Lab Results 09/22/23 Range/Units 09:30 WBC 6.56 (4.8-10.8) K/ul RBC 4.90 (4.70-6.10) M/uL Hgb 14.7 (14.0-18.0) g/dl Hct 41.9 L (42.0-52.0) % MCV 85.5 (80.0-100.0) fL MCH 30.0 (25.0-34.0) pg MCHC 35.1 (32.0-36.0) g/dL RDW Std Deviation 38.6 (36.4-46.3) fL RDW Coeff of Julieth 12.4 (11.5-14.5) % Plt Count 259 (130-400) K/uL MPV 10.1 (9.4-12.4) fL Immature Gran % (Auto) 0.3 % Neut % (Auto) 56.0 % Lymph % (Auto) 31.7 % [place] % (Auto) 8.2 % Eos % (Auto) 2.7 % Baso % (Auto) 1.1 % Neut # (Auto) 3.67 (1.40-6.50) K/uL Lymph # (Auto) 2.08 (1.20-3.40) K/uL [place] # (Auto) 0.54 (0.11-0.59) K/uL Eos # (Auto) 0.18 (0.00-0.50) K/uL Baso # (Auto) 0.07 (0.00-0.20) K/uL Immature Gran # (Auto) 0.02 (0.01-0.20) K/uL Heparin Anti-Xa, Unfract < 0.10 L (0.3-0.7) IU/ml Sodium 136 (136-145) mmol/L Potassium 3.6 (3.5-5.1) mmol/L Chloride 103 (98-107) mmol/L Carbon Dioxide 26 (21-32) mmol/L Anion Gap 7 (3-11) BUN 9 (6-23) mg/dl Creatinine 0.89 (0.6-1.4) mg/dl Est Cr Clr Drug Dosing 94.9 ml/min Est GFR ( Amer) 112.3 ml/min Est GFR (Non-Af Amer) 96.9 ml/min BUN/Creatinine Ratio 10.1 (10-20) Glucose 125 H (70-99(Fasting)) mg/dl Calcium 8.9 (8.6-10.3) mg/dl Total Bilirubin 0.3 (0.2-1.0) mg/dl Direct Bilirubin 0.1 (0-0.2) mg/dl AST 14 (13-39) U/L ALT 14 (7-52) U/L Alkaline Phosphatase 60 (34-104) U/L Troponin I High Sens 8.5 (0-20) pg/ml Total Protein 7.2 (6.0-8.3) gm/dl Albumin 4.3 (3.4-5.0) gm/dl Lipase 35 (11-82) U/L Diagnostic Findings Chest X-Ray 09/22/23 10:00 XR chest 1V portable HISTORY: 53 years-old Male CP acute chest pain COMPARISON: 09/19/2023 TECHNIQUE: AP view of the chest FINDINGS: Lungs are clear. Pulmonary emphysema. Cardiac silhouette appears normal. No pneumothorax or pleural effusion. Mild subsegmental right basilar atelectasis versus scarring. IMPRESSION: No acute process. ACT 112: Negative or not required by law. The above report was generated using voice recognition software. It may contain grammatical, syntax or spelling errors. Electronically signed by: Jarred Parsons M.D. 09/22/2023 10:54 AM Medications Administered Heparin Sodium/Dextrose (Heparin Sodium/Dextrose) 25,000 units in 500 mls @ 18 mls/hr IV .Q24H JANET; Protocol Stop: 10/22/23 12:29 Last Admin: 09/22/23 12:29 Dose: 900 units/hr, 18 mls/hr Documented By: DAVION Co-signed By: FAVIOLA Discontinued Medications Heparin Sodium (Porcine) (Heparin Sod (Porcine) 1000 Unit/Ml) 1 units IV NOW ONE Stop: 09/22/23 12:20 Last Admin: 09/22/23 12:29 Dose: 5,000 units Documented By: DAVION Co-signed By: FAVIOLA Heparin Sodium/Dextrose (Heparin Iv Adult Wt-Based Low-Dose W/ Initial Bolus Protocol) 1 each IV NOW STA; Protocol Stop: 09/22/23 12:03 Last Admin: 09/22/23 12:37 Dose: Not Given Documented By: DAVION Metoprolol Tartrate (Metoprolol Tartrate 1 Mg/Ml Vial) 2.5 mg IV NOW STA Stop: 09/22/23 12:15 Last Admin: 09/22/23 12:41 Dose: 2.5 mg Documented By: DAVION (2) Coronary artery disease Associated angina: with unstable angina Coronary Disease-Associated Artery/Lesion type: mo[place] artery Sam[place] vs. transplanted heart: moapa heart Qualified Code(s): I25.110 - Atherosclerotic heart disease of [place] coronary artery with unstable angina pectoris (3) COPD (chronic obstructive pulmonary disease) COPD type: unspecified COPD Qualified Code(s): J44.9 - Chronic obstructive pulmonary disease, unspecified (7) Carotid artery disease Carotid artery disease type: unspecified Laterality: unspecified laterality Qualified Code(s): I77.9 - Disorder of arteries and arterioles, unspecified
[2023-09-22] MEDS ORDERED: NITROGLYCERIN SL 0.4 MG/TAB TAB SL PRN (13:10)
--- NOTE | 2023-09-22 13:22 | Electrocardiogram Report ---
Test Reason : Blood Pressure : */* mmHG Vent. Rate : 98 BPM Atrial Rate : 98 BPM P-R Int : 130 ms QRS Dur : 88 ms QT Int : 340 ms P-R-T Axes : 76 59 106 degrees QTcB Int : 434 ms Normal sinus rhythm Abnormal ECG When compared with ECG of 19-Sep-2023 13:03, T wave inversion now evident in Inferior leads T wave inversion now evident in Anterolateral leads Confirmed by Constantino Phipps ([id number]) on 09/22/2023 1:22:26 PM Referred By: Confirmed By: Constantino Phipps
--- NOTE | 2023-09-22 13:40 | Communication Note ---
Date of Service: September 22, 2023 Attending Addendum: Case reviewed with the advanced practitioner. I have personally performed a history and physical examination on the patient. I have reviewed the advanced practitioner's documentation on the date of service referenced in note, and I agree with, and take responsibility for the plan of care. please refer to her notes for full details patient seen and examined, records reviewed by myself as well on exam, patient seen sitting up in bed, comfortable on room pain states he is chest pain free also denies active shortness of breath, palpitations, nausea no other symptoms VS noted and reviewed General- oriented x 3, not in distress, speaks in sentences with no effort or accessory muscle use Head- atraumatic Eyes- PERRL, EOMI, anicteric ENT- oropharynx clear Neck- supple, no JVD, no adenopathy, no thyromegaly; carotids +2/2, no bruits appreciated Lungs-very faint intermittent wheeze BL Heart- normal rate, regular rhythm; no murmur, no gallop, no rub appreciated Abdomen- normal bowel sounds, nondistended, soft, nontender, no masses or hepatosplenomegaly Extremities- no pretibial edema, no calf tenderness; peripheral pulses intact Neuro- alert, oriented x 3; CN 2-12 grossly intact; motor 5/5 bilaterally;sensation 100% on all extremities; no other gross focal neurologic deficits Skin- warm & dry all labs, imaging noted and reviewed ASSESSMENT AND PLAN UNSTABLE ANGINA HISTORY OF STEMI, CAD, S/P STENT PLACEMENT (+) abnormal stress test last Friday troponin negative EKG t wave depressions 2,3,AVF, and melany lateral leads Heparin drip for Cardiac Cath today other diagnoses and plan of care as per advanced practitioner's notes Cruz Verduzco MD
[2023-09-22] MEDS ORDERED: ALBUTEROL HFA 8 GM INHALER INH PRN (14:58)
[2023-09-22] MEDS: niCARdipine HCL INJ 2.5 MG/ML 10 ML AMP ONE (15:34)
[2023-09-22] MEDS: NITROGLYCERIN/D5W 100MCG/ML 20ML SYR ONE (15:34)
[2023-09-22] MEDS: fentaNYL citrate PF 100 MCG/2 ML VIAL ONE ×2 (15:35→15:47)
[2023-09-22] MEDS: MIDAZOLAM HCL 1 MG/ML 2ML VIAL ONE ×2 (15:35→15:47)
[2023-09-22] MEDS: HEPARIN (PORCINE) 1000 UNIT/ML 10 ML (CATH LAB USE ONLY) ONE (15:47)
[2023-09-22] MEDS: OPTIRAY 350 ONE (15:49)
[2023-09-22] MEDS: TICAGRELOR 90 MG TAB ONE (15:50)
[2023-09-22] MEDS: NICOTINE 21 MG/24 HR TDSY TD SCH (16:57)
[2023-09-22] MEDS: amLODIPine BESYLATE 5 MG TAB PO ONE (16:58)
[2023-09-22] MEDS: ISOSORBIDE MONO EXTENDED REL 30 MG TABCR PO ONE (16:59)
[2023-09-22] MEDS: LOSARTAN POTASSIUM 50 MG TAB PO ONE (17:40)
--- NOTE | 2023-09-22 17:49 | Post Anesthesia Assessment ---
Date of Service September 22, 2023 Post Sedation Assessment Vital Signs Temp Pulse Pulse Resp BP BP BP 09/22/23 17:35 97 H 18 145/90 H 09/22/23 17:20 95 H 18 168/101 H 09/22/23 17:05 90 18 192/103 H 09/22/23 16:51 83 18 195/96 H 09/22/23 16:43 87 20 09/22/23 16:20 85 18 09/22/23 15:59 80 16 09/22/23 14:46 84 14 09/22/23 13:24 09/22/23 13:24 98.6 F 76 18 09/22/23 13:16 98.4 F 83 18 09/22/23 12:54 76 18 09/22/23 11:00 83/66 L 09/22/23 11:00 78 12 09/22/23 10:51 86 21 09/22/23 10:46 95/76 L 09/22/23 10:46 95/76 L 09/22/23 10:33 84 13 09/22/23 10:30 92/68 L 09/22/23 10:30 92/68 L 09/22/23 10:26 85 09/22/23 10:09 98.2 F 87 16 97/77 L 09/22/23 10:09 09/22/23 09:59 98.2 F 98 H 24 97/77 L BP BP Pulse Ox O2 Del Method O2 Flow Rate 09/22/23 17:35 84 L Room Air 09/22/23 17:20 97 Room Air 09/22/23 17:05 96 Room Air 09/22/23 16:51 95 Room Air 09/22/23 16:43 151/78 H 95 Room Air 09/22/23 16:20 179/90 H 96 Room Air 09/22/23 15:59 178/100 H 96 Room Air 09/22/23 14:46 159/79 H 97 Room Air 09/22/23 13:24 Room Air 09/22/23 13:24 139/83 96 Room Air 09/22/23 13:16 168/76 H 96 Room Air 09/22/23 12:54 98 09/22/23 11:00 09/22/23 11:00 97 09/22/23 10:51 96 09/22/23 10:46 09/22/23 10:46 09/22/23 10:33 97 09/22/23 10:30 09/22/23 10:30 09/22/23 10:26 09/22/23 10:09 97 09/22/23 10:09 97 Room Air 0 09/22/23 09:59 97 Recovery Score Activity: Moves 4 extremities Respiration: Deep Breath/Cough Circulation: +/-20% PreAnes Value Consciousness: Fully Awake Oxygen Saturation: O2 needed for >90% Post Anesthesia Score: 2 Discharge Sedation Level of Care: Fast Track Phase II Post Sedation Plan On clinical assessment, the patient appears to have tolerated the sedation without complications. Patient is recovering as anticipated. Patient will continue to be monitored by nursing and may be discharged when sedation discharge criteria are met per below protocol. Upon Completions of procedure up to 15 minutes continue every 5 minute vital signs and the P.A.R. score; then discharge to a Phase I or Fast Track to Phase II per the following guidelines: * Discharge Patient to appropriate Phase II area if PAR is 8 or greater or return to pre- procedure baseline. The post - procedure orders will be as directed. * If PAR score is less than 8 or not return to pre-procedure baseline then patient will follow Phase I monitoring till PAR is reached for Phase II. The Phase I may be done in procedure room or may call to secure a Phase I area. * If naloxone or flumazenil are used for reversal, hold in Phase I for continued monitoring from when last reversal dose was given for a minimum of 60 minutes or longer pending the nurse and/or physician discretion of patient condition before discharge to Phase II. Please call the Sedation Physician to re-evaluate and complete post-note for discharge to Phase II area. Do NOT discharge from procedure sedation or Phase 1 until post- sedation evaluation note is complete by procedure /sedation MD Sedation Discharge Instructions to be given to the patient at discharge to home.
--- NOTE | 2023-09-22 17:56 | Cardiac Catheterization ---
[facility] Data: Stitch Burnisher Cardiac Status Clinical evaluation leading to the procedure CAD Presenation: Positive Stress Test and Unstable angina Anginal Classification: CCS IV Diagnostic Physicians Name: Rigo Jorge MD Closure Device Recommendations: Medical Therapy and/or Counseling Cardiac Cath Procedure Full Procedure Date September 22, 2023 Pre-Procedure Diagnosis Pre-Procedure Diagnosis: Acute Coronary Syndrome AUC Score AUC Score: 8 Post-Procedure Diagnosis Post-Procedure Diagnosis: Severe CAD, Successful PCI and Normal Intracardiac Pressures Procedure(s) Performed Procedure(s) Performed: Coronary Angiography, Left Heart Cath, Drug Eluting Stent and IVUS Storm Door Maker Rigo Jorge MD Operating Systems Specialist(s) Jing Estimated Blood Loss Estimated Blood Loss: 10 Medication(s) Medication(s): Fentanyl, Heparin, Lidocaine 1%, Nicardipine, Nitroglycerin and Versed Medication(s): Ticagrelor Summary of Findings Indication: Acute coronary syndrome, abnormal stress test Access: 6 Fr slender right radial artery Catheters: Wynot Findings: LM -normal caliber, no significant disease LAD -medium caliber, 95% proximal edge/in-stent restenosis in proximal LAD stent, remainder of stent without significant disease. Large D2 without significant disease. 40% distal LAD disease after takeoff of D2. Remainder of LAD tapers to apex. Ramus Small to medium caliber, 40% ostial stenosis Circumflex -medium caliber, 20-30% ostial, mid segment luminal regularities. Large OM 2 without significant disease. RCA -dominant, medium caliber, mid segment luminal irregularities. Distal vessel, RPDA/PLB without significant disease. LVEDP -14 -- PCI -- Antithrombotic therapy: Heparin, ticagrelor Procedure: Left main cannulated with EBU 3.5 guide Pre-procedure flow CLARENCE 3 Weather Observer 50 wire passed across lesion into distal vessel Prowater wire placed into circumflex Proximal LAD lesion predilated with 2.5 compliant balloon mediaBunker IVUS catheter placed to mid LAD. Pullback revealed disease and proxim al aspect of stent extending to LAD ostium. No significant left main disease. Dilated lesion stented with 3.0 x 15 mm Xience drug-eluting stent extending back to LAD ostium and overlapping proximal/mid aspect of prior stent Stent post-dilated with 3.5 noncompliant balloon IC vasodilators administered for spasm Post procedure CLARENCE 3 flow, stent well expanded with minimal residual stenosis and no apparent cardiac complications. Arterial Closure: TR band Summary: 1. Severe single vessel coronary artery disease -95% proximal edge/in-stent restenosis in proximal LAD stent. 2. Residual mild to moderate nonobstructive coronary artery disease 40% small distal LAD after D2 25% ostial circumflex 40% ostial small to medium ramus 3. Normal intracardiac filling pressure 4. Successful PCI of ostialproximal LAD with single drug-eluting stent overlapping proximal aspect of prior stent (3.0 x 15 mm Xience; postdilated with 3.5 NC). Recommendations: To PCU for continued monitoring Loaded with ticagrelor 180 mg in Stitch Burnisher Continue dual-antiplatelet therapy for at least 1 year, consider extended P2Y12 in the setting of overlapping stent Continue statin, and ASCVD risk factor modification Consult cardiac Rehab Hemodynamics Rest Ao:: 155/87/130 Final Ao: 126/59/87 LV: 141/14 Recommendations Recommendations: Medical Therapy and/or Counseling Radiation Exposure (mGy) 1330 Contrast (mls) 65 Anesthesia Moderate 0518-3760 Procedural Complication(s) None Disposition PCU I attest to the content of the Intraoperative Record and any orders documented therein. Any exceptions are noted below. [facility] Card Cath Procedure Codes Cardiac Catheterization Procedure 1: Cardiovascular Cath Procedures: 13978 Coronaries and LHC (+/-LV) Moderate Sedation Procedure 1: Sedation/Anesthesia: 28863 Mod Sedation by the same physician;Init15 Min Child Age 5 & Up Procedure 2: Sedation/Anesthesia: 19814 Mod Sedation by the same physician; Ea [id number] Minutes Stenting Procedure 1: Cardiovascular Stent Procedures: 73069 Perc transcatheter placement of intracoronary stent(s), with ang PG Care Time/CCT Total # of Minutes Spent Total Time Spent with Patient: Total time spent is greater than 50% in coordination of care (as documented) at patient's floor/unit and/or counseling patient:
[2023-09-23 03:25] VITALS: RESP 17
[2023-09-23 07:17] LABS: Basophils # (auto) 0.06 K/uL (0.00-0.20); Basophils % (auto) 0.8 %; Eosinophils # (auto) 0.15 K/uL (0.00-0.50); Eosinophils % (auto) 1.9 %; Hematocrit (blood only) 37.5 % (42.0-52.0); Hemoglobin 13.1 g/dl (14.0-18.0); Immature Granulocytes # (auto) 0.02 K/uL (0.01-0.20); Immature Granulocytes % (auto) 0.3 %; Lymphocytes # (auto) 1.94 K/uL (1.20-3.40); Lymphocytes % (auto) 25.2 %; Mean Corpuscular Hgb Conc 34.9 g/dL (32.0-36.0); Mean Corpuscular Volume 85.8 fL (80.0-100.0); Mean Platelet Volume 10.1 fL (9.4-12.4); Monocytes # (auto) 0.56 K/uL (0.11-0.59); Monocytes % (auto) 7.3 %; Neutrophils # (auto) 4.97 K/uL (1.40-6.50); Neutrophils % (auto) 64.5 %; Platelet Count 236 K/uL (130-400); RDW Coefficient of Variation 12.5 % (11.5-14.5); RDW Standard Deviation 39.5 fL (36.4-46.3); Red Blood Count 4.37 M/uL (4.70-6.10)
[2023-09-23 07:33] LABS: BUN Creatinine Ratio 17.3 (10-20); Calcium 8.7 mg/dl (8.6-10.3); Chol HDL Ratio 3.3 (0-5); Creatinine Clr Calc Pharmacy 104.3 ml/min; Est GFR (African American) 116.8 ml/min; Est GFR (Non-African American) 100.8 ml/min; Potassium 3.8 mmol/L (3.5-5.1)
[2023-09-23 07:50] LABS: Estimated Average Glucose 140 mg/dl; Hemoglobin A1C 6.5 % (4.5-5.6)
--- NOTE | 2023-09-23 07:59 | Hospitalist Progress Note ---
Date of Service September 23, 2023 Assessment & Plan Admission and Anticipated Discharge Date Admission Date: September 22, 2023 Results & Data Results & Data Vital Signs (Past 12 Hours) Vital Signs Temp Pulse Pulse Resp BP Pulse Ox O2 Del Method 09/23/23 07:25 78 09/23/23 07:22 36.7 C 84 17 115/69 99 Nasal Cannula 09/23/23 02:55 36.5 C 77 17 154/77 H 98 Nasal Cannula 09/22/23 22:26 36.7 C 110 H 19 169/87 H 95 Room Air 09/22/23 21:59 100 H O2 Flow Rate 09/23/23 07:25 09/23/23 07:22 2 09/23/23 02:55 2 09/22/23 22:26 09/22/23 21:59
[2023-09-23] MEDS: amLODIPine BESYLATE 5 MG TAB PO SCH (08:48)
[2023-09-23] MEDS: ASPIRIN 81 MG ECTAB PO SCH (08:49)
[2023-09-23] MEDS: ISOSORBIDE MONO EXTENDED REL 30 MG TABCR PO SCH (08:49)
[2023-09-23] MEDS: hydroCHLOROthiazide 25 MG TAB PO SCH (08:49)
[2023-09-23] MEDS: ROSUVASTATIN CALCIUM 20 MG TAB PO SCH (08:50)
[2023-09-23] MEDS: METOPROLOL SUCC 50MG EXT REL TAB PO SCH (08:50)
[2023-09-23] MEDS: LOSARTAN POTASSIUM 50 MG TAB PO SCH (08:50)
[2023-09-23] MEDS: TICAGRELOR 90 MG TAB PO SCH (08:51)
[2023-09-23] MEDS: UMECLIDINIUM/VILANTEROL 62.5/25MCG 7 PUFFS/INHALER INH SCH (08:51)
[2023-09-23] MEDS: FLUTICASONE FUROATE 100MCG 14 PUFFS/INHALER INH SCH (08:52)
[2023-09-23] MEDS ORDERED: CLOPIDOGREL BISULFATE 75 MG TAB PO SCH (09:00)
[2023-09-23] MEDS ORDERED: NON-FORMULARY MEDICATION (Fluticasone-Umeclidin-Vilanter [Trelegy Ellipta] 100-62.5-25 mcg INH SCH (09:00)
--- NOTE | 2023-09-23 10:07 | Electrocardiogram Report ---
Test Reason : Blood Pressure : */* mmHG Vent. Rate : 77 BPM Atrial Rate : 77 BPM P-R Int : 138 ms QRS Dur : 86 ms QT Int : 386 ms P-R-T Axes : 76 61 93 degrees QTcB Int : 436 ms Normal sinus rhythm Nonspecific ST and T wave abnormality Abnormal ECG When compared with ECG of 22-Sep-2023 10:00, T wave inversion no longer evident in Inferior leads T wave inversion no longer evident in Anterolateral leads Confirmed by Constantino Phipps ([id number]) on 09/23/2023 10:06:49 AM Referred By: REFERRED SELF Confirmed By: Constantino Phipps
[2023-09-23 10:19] VITALS: TEMP 98.4
--- NOTE | 2023-09-23 10:58 | Electrocardiogram Report ---
Test Reason : Blood Pressure : */* mmHG Vent. Rate : 78 BPM Atrial Rate : 78 BPM P-R Int : 134 ms QRS Dur : 88 ms QT Int : 368 ms P-R-T Axes : 69 61 90 degrees QTcB Int : 419 ms Normal sinus rhythm Nonspecific ST and T wave abnormality Abnormal ECG When compared with ECG of 22-Sep-2023 16:17, (unconfirmed) No significant change was found Confirmed by Constantino Phipps ([id number]) on 09/23/2023 10:58:07 AM Referred By: REFERRED SELF Confirmed By: Constantino Phipps
--- NOTE | 2023-09-23 12:13 | Cardiology Progress Note ---
Date of Service September 23, 2023 Assessment & Plan (1) Unstable angina pectoris: (2) Abnormal stress echo: (3) Peripheral vascular disease: Plan: Left subclavian occlusion (4) Carotid artery disease: Plan: Status post left carotid enterectomy 06/25/2023 Plan Patient is a 53-year-old male with known carotid disease coronary artery disease and peripheral vascular disease (left subclavian occlusion) hospitalized last week with chest pain consistent with unstable angina. Stress testing positive for ischemia.Patient chose not to be maintained in hospital setting at that time for diagnostic cardiac catheterization. We presented this morning with symptoms with acute chest pain consistent with angina pectoris at rest with dynamic ST depression on EKG in ambulance and ER. Symptoms are relieved with 3 sublingual nitroglycerin. EKGs with dynamic ST depression lateral leads but no acute ST elevation Currently symptoms have abated. Initial troponin negative Impression: Unstable angina at rest. Will initiate anticoagulation with IV heparin Blood pressures via right arm Did not have a.m. medications this morning will give 2.5 mg IV metoprolol for heart rate and blood pressure control but blood pressure is relatively soft on left arm checked N.p.o. for cardiac catheterization later today 09/23/2023 1. Unstable angina secondary to high-grade single-vessel disease with edge/in- stent stenosis of the left anterior descending in its proximal portion: Status post successful coronary intervention 2. Atherosclerotic peripheral and carotid artery disease 3. Longstanding hypertension 4. Chronic tobacco use Recommendations: Stable for discharge today Off work until next Friday Increase metoprolol succinate to 75 mg p.o. daily continue other prehospital medications except may discontinue isosorbide mononitrate Brilinta substituted for clopidogrel, 90 mg twice per day Plan dual antiplatelet therapy 1 year, uninterrupted for 6 months Cardiac rehab referral Tobacco cessation mandated Admission and Anticipated Discharge Date Admission Date: September 22, 2023 Subjective Patient was seen and examined, chart, medications, telemetry reviewed Feels well no complaints overnight. No chest pains or discomfort. Telemetry sinus and sinus tachycardia. Right radial access site healing well Cardiac catheterization with high-grade in-stent stenosis proximal left anterior descending underwent successful stent implantation yesterday with good result Review of Systems Review of Systems: All systems reviewed & are unremarkable except as noted in Subjective Physical Exam Constitutional: average body habitus; no acute distress Eyes: PERRL, conjunctivae normal, anicteric sclerae ENMT: external ear and nose normal, oropharynx normal Neck: trachea midline, no thyromegaly Respiratory: Auscultation: + diminished lung sounds; no wheezes Cardiovascular: Rate/Rhythm: regular rate and regular rhythm Heart Sounds: normal S1 and normal S2 Vessels: radial pulses present (Catheter insertion site healing well); no JVD Extremities: no edema Gastrointestinal (Abdomen): normal bowel sounds, soft, nontender, no hepatosplenomegaly Skin: no rashes, warm and dry Neurologic: PERRL, EOMI, accommodation nl, no face palsy, no dysarthria Results & Data Vital Signs (Past 12 Hours) Vital Signs Temp Pulse Pulse Resp BP Pulse Ox O2 Del Method 09/23/23 11:16 Room Air 09/23/23 10:18 36.9 C 96 H 17 142/85 H 95 Room Air 09/23/23 07:25 78 09/23/23 07:22 36.7 C 84 17 115/69 99 Nasal Cannula 09/23/23 02:55 36.5 C 77 17 154/77 H 98 Nasal Cannula O2 Flow Rate 09/23/23 11:16 09/23/23 10:18 09/23/23 07:25 09/23/23 07:22 2 09/23/23 02:55 2 Diagnostic Findings Cardiac catheterization 09/22/2023 Summary: 1. Severe single vessel coronary artery disease -95% proximal edge/in-stent restenosis in proximal LAD stent. 2. Residual mild to moderate nonobstructive coronary artery disease 40% small distal LAD after D2 25% ostial circumflex 40% ostial small to medium ramus 3. Normal intracardiac filling pressure 4. Successful PCI of ostialproximal LAD with single drug-eluting stent overlapping proximal aspect of prior stent (3.0 x 15 mm Xience; postdilated with 3.5 NC). Recommendations: To PCU for continued monitoring Loaded with ticagrelor 180 mg in [employer] Continue dual-antiplatelet therapy for at least 1 year, consider extended P2Y12 in the setting of overlapping stent Continue statin, and ASCVD risk factor modification (4) Carotid artery disease Carotid artery disease type: unspecified Laterality: unspecified laterality Qualified Code(s): I77.9 - Disorder of arteries and arterioles, unspecified
[2023-09-23] MEDS: METOPROLOL SUCC 25MG EXT REL TAB PO ONE (12:21)
--- NOTE | 2023-09-23 14:12 | Discharge Summary ---
Discharge Summary Date of Service September 23, 2023 Principal Dx & Hospital Course #1 = Principal Diagnosis (1) Unstable angina pectoris: (2) Coronary artery disease: (3) COPD (chronic obstructive pulmonary disease): (4) Benign essential hypertension: (5) Alcohol use disorder: (6) Peripheral vascular disease: (7) Carotid artery disease: Plan This is a 53 y/o male with hx of anterior STEMI in June 2022, s/p cath with stent placement, COPD, ongoing tobacco use, remote hx of PSVT ablation, carotid stenosis s/o enterectomy 06/25/23, PVD, HTN, dyslipidemia and other history as outlined who presented to the ED on day of admission with bilateral arm pain with associated diaphoresis. Pt had an abnormal stress test on 09/19/23 and it was recommended that he be admitted to undergo cardiac catheterization but signed out AMA. He has continued to have symptoms at home and returned to the ED with an episode of severe shoulder pain with diaphoresis. His pain resolved with nitro x 3 doses. He is now willing to be admitted to undergo cardiac cath. Pt was started on IV Heparin Continue outpatient meds including aspirin, clopidogrel, isosorbide, beta- patricia and statin S/p cardiac cath on 09/22/23. Culprit-95% proximal edge/in-stent restenosis in proximal LAD stent. Successful PCI of ostialproximal LAD with single drug- eluting stent overlapping proximal aspect of prior stent Consulted cardiology, recommended/stated the following: "1. Unstable angina secondary to high-grade single-vessel disease with edge/in-stent stenosis of the left anterior descending in its proximal portion: Status post successful coronary intervention 2. Atherosclerotic peripheral and carotid artery disease 3. Longstanding hypertension 4. Chronic tobacco use Recommendations: Stable for discharge today Off work until next Friday Increase metoprolol succinate to 75 mg p.o. daily continue other prehospital medications except may discontinue isosorbide mononitrate Brilinta substituted for clopidogrel, 90 mg twice per day Plan dual antiplatelet therapy 1 year, uninterrupted for 6 months Cardiac rehab referral Tobacco cessation mandated" Lipid panel normal Hgba1c of 6.5 on 09/22 indicating new diagnosis of DMII Pt discharged with metoprolol succinate 75mg daily and Brillinta 90mg BID as above. Discontinue Plavix and isosorbide mononitrate as above Encourage smoking cessation Please ensure close Cardiology followup after discharge. History of left subclavian occlusion so BPs to be checked in the right arm Status post left carotid enterectomy 06/25/2023 Alcohol use disorder Denies prior hx of withdrawal symptoms Drinking a six pack of beer daily PCP followup DMII Hgbac of 6.5 on 09/22 Started on metformin 500mg daily with pcp followup Notes For Next Care Provider Per Cardiology: "Stable for discharge today Off work until next Friday Increase metoprolol succinate to 75 mg p.o. daily continue other prehospital medications except may discontinue isosorbide mononitrate Brilinta substituted for clopidogrel, 90 mg twice per day Plan dual antiplatelet therapy 1 year, uninterrupted for 6 months Cardiac rehab referral Tobacco cessation mandated" New DMII diagnosis, hgb1c of 6.5 Medication Changes From Visit PER CARDIOLOGY: Brilinta 90mg BID Metoprolol succinate increased to 75mg daily Discontinue home Plavix and isosorbide mononitrate Started on metformin 500mg daily for hgba1c of 6.5 Admission HPI Per Admitting Provider This is a 53 y/o male with hx of anterior STEMI in June 2022, s/p cath with stent placement, COPD, ongoing tobacco use, remote hx of PSVT ablation, carotid stenosis s/o enterectomy 06/25/23, PVD, HTN, dyslipidemia and other history as outlined who presented to the ED today with bilateral arm pain with associated diaphoresis. Pt was seen in the ED on 09/19/23 for chest and arm discomfort, had an exercise stress echocardiogram that was abnormal and admission was recommended. However, pt declined and signed out AMA. Over the weekend, he has continued to have episodes of chest and arm discomfort with exertion, improve with rest. This morning, he developed severe bilateral shoulder pain radiating down both arms with associated diaphoresis so he called EMS. He was given sublingual nitroglycerin x 3 and aspirin en route with resolution of his pain. Currently, he is pain-free. EKGs showed dynamic ST depression in the lateral leads but no ST elevation. Pt reports that he had done well after his cath last year until the last few months when he developed episodic lightheadedness. This was originally attributed to known carotid disease but has not significant improved after surgical intervention. He reports that he has been taking all medications as prescribed but has not yet taken his medications today. He has cut back to 1/2 PPD of cigarettes, continues to drink a six pack of beer daily. Denies prior EtOH withdraw symptoms when hospitalized. Denies fevers, chills, or recent infection. COPD symptoms have been at baseline. Cardiac catheterization 07/08/22: 1. Severe proximal LAD stenosis which is the culprit for acute anterior ST elevation MD. 2. Mild nonocclusive coronary disease in the other coronary arteries. 3. Successful PCI with implantation of a drug-eluting stent to the LAD. Stress Echocardiogram 09/19/23: exercise stress echocardiogram is abnormal and suggestive of ischemia, HR response to exercise attenuated due to beta-patricia therapy, stress EKG abnormal w/ development of 1.[address] segment depression in the inferior leads as well as leads V3-V6, resting wall motion normal Admission Exam Per Admitting Provider VS noted and reviewed General- oriented x 3, not in distress, speaks in sentences with no effort or accessory muscle use Head- atraumatic Eyes- PERRL, EOMI, anicteric ENT- oropharynx clear Neck- supple, no JVD, no adenopathy, no thyromegaly; carotids +2/2, no bruits appreciated Lungs-very faint intermittent wheeze BL Heart- normal rate, regular rhythm; no murmur, no gallop, no rub appreciated Abdomen- normal bowel sounds, nondistended, soft, nontender, no masses or hepatosplenomegaly Extremities- no pretibial edema, no calf tenderness; peripheral pulses intact Neuro- alert, oriented x 3; CN 2-12 grossly intact; motor 5/5 bilaterally;sensation 100% on all extremities; no other gross focal neurologic deficits Skin- warm & dry Discharge Exam General: Alert, oriented. No acute distress Skin: No noted rashes or bruises Psych: Appropriate mood and affect Neuro: No gross deficits HEENT: NC/AT Chest: Nontender to palpation. CV: RRR Resp: Breath sounds clear bilaterally, no increased effort of breathing. Abdomen: Soft, nontender, nondistended. Extremities: No edema in lower extremities bilaterally. Updated Medication List Medication Instructions Recorded Confirmed Type albuterol sulfate 90 mcg/actuation 2 puff inhalation Q4H PRN 01/13/18 09/22/23 History aerosol inhaler (Ventolin HFA) Shortness Of Breath Or Wheezing aspirin 81 mg tablet,delayed 81 mg PO DAILY #30 tabs 07/10/22 09/22/23 Rx release amlodipine 5 mg tablet 5 mg PO QAM 09/19/23 09/22/23 History fluticasone fur. 100 mcg-umeclid 1 ea inhalation DAILY 09/19/23 09/22/23 History 62.5 mcg-vilant 25 mcg inhalat.powder (Trelegy Ellipta) hydrochlorothiazide 25 mg tablet 25 mg PO QAM 09/19/23 09/22/23 History losartan 50 mg tablet 50 mg PO QAM 09/19/23 09/22/23 History nitroglycerin 0.4 mg sublingual 0.4 mg sublingual DIRECTED PRN 09/19/23 09/22/23 History tablet Chest Pain rosuvastatin 20 mg tablet 20 mg PO QAM 09/19/23 09/22/23 History metformin 500 mg tablet 500 mg PO DAILY #30 tabs 09/23/23 Rx metoprolol succinate 25 mg 75 mg (3 x 25 mg) PO QAM #90 tabs 09/23/23 Rx tablet,extended release 24 hr ticagrelor 90 mg tablet (Brilinta) 90 mg PO BID #60 tabs 09/23/23 Rx Hospital Stay Data Consultations 09/22/23 12:04 ED Decision to Admit Stat 09/22/23 16:37 Consult Cardiology Routine Procedures Performed Operation Date: 09/22/23 12:30 Actual Procedures p Cineradiography w/Routine Exam - Rigo Jorge MD p Cath, Left with Cors and Vent - Rigo Jorge MD p Drug Eluting Stent SGl Vessel - Rigo Jorge MD s IVUS Coronary Single Vessel - Rigo Jorge MD Diagnostic Imagining Performed 09/22/23 11:43 CL Cath Imgs for PACS use only Stat 09/22/23 16:04 CL IVUS Coronary Single Vessel Routine Chest X-Ray 09/22/23 10:00 XR chest 1V portable HISTORY: 53 years-old Male CP acute chest pain COMPARISON: 09/19/2023 TECHNIQUE: AP view of the chest FINDINGS: Lungs are clear. Pulmonary emphysema. Cardiac silhouette appears normal. No pneumothorax or pleural effusion. Mild subsegmental right basilar atelectasis versus scarring. IMPRESSION: No acute process. ACT 112: Negative or not required by law. The above report was generated using voice recognition software. It may contain grammatical, syntax or spelling errors. Electronically signed by: Jarred Parsons M.D. 09/22/2023 10:54 AM Discharge Instructions Given to Patient (Per Discharging Provider) Ana, You were seen by cardiology and they are recommending discharge home. They made some changes to your medications listed below: -switched you from Plavix to Brillinta -advised discontinue isosorbide -increased your metoprolol to 75mg daily. Continue your other home medications as prescribed. You are now also diabetic with a hemoglobin a1c of 6.5. Please take the metformin prescribed to help and keep close followup with your primary care provider about this. Please keep close follow up with Cardiology after discharge. Again, please also keep close follow up with your primary care provider as well after discharge. They will help with the extended work excuse needed. Please do not hesitate to come back to the emergency room if your symptoms worsen or return. It was a pleasure taking care of you while you were here. Total Time Total Time Spent Total Time Spent (In Minutes): 65
[2023-09-23 14:41] VITALS: BP 97/77; PULSE 86; O2SAT 95
[2023-09-24] MEDS ORDERED: METOPROLOL SUCC 25MG EXT REL TAB PO SCH (09:00)
== END 2023-09-23 15:11 | disposition home or self-care (01) | DRG 322 ==
LOC: ED 09:56 → SUATTDRO 12:31 → 2E 12:31